=== PATIENT | male | born 1950 | race Caucasian/White ===

== ENCOUNTER 2018-02-27 11:25 | Outpatient (RCR) | payer MEDICARE, OTHER, SELFPAY | END 2018-03-11 13:01 | disposition other institution (70) | LOC: CR 03-01 11:27 | PROVIDERS: Visit Provider Family Medicine | DX: I25.2 Old myocardial infarction (principal); E78.5 Hyperlipidemia, unspecified; Z51.89 Encounter for other specified aftercare | CPT/HCPCS: S9472 ==

== ENCOUNTER → 2018-03-26 14:30 | Outpatient (CLI) | payer MEDICARE, OTHER, SELFPAY | PROVIDERS: Visit Provider Urology | DX: N39.41 Urge incontinence (principal); N32.0 Bladder-neck obstruction | CPT/HCPCS: 99213 ==

== ENCOUNTER 2018-03-27 11:09 | Outpatient (RCR) | payer SELFPAY ==
--- NOTE | 2018-03-11 11:00 | PR3E_ITS ---
67 year old male who completed Cardiac Rehabilitation Phase 2 on March 08 2018 s/p NSTEMI in October 2017. Patient decided to continue exercising regularly and join the Cardiac Rehab Maintenance Phase, 3 days per week. PMH:Dyslipidemia, GERD, Depression, ELIAS, DJD of cervical spine, essential tremor , chronic fatigue Cardiac Risk Factors: +Male, +Age, +Family history, +HCL, +Depression, +remote smoking history Medications: Ability, Armodafinil, ASA, Atorvastatin, Clomipramine, Concerta, Gabapentin, Metoprolol Succinate, Mirabegron, Nitroglycerin, Omeprazole, Plavix , Propranolol, Trospium Chloride First day of Phase 3: 03/11/18 Oriented to program structure and patient responsibilities.Weight 254.6 lbs Resting HR 93 bpm and resting BP 136/82. Utilized the treadmill, NuStep, Stationary bike, and UBE for 10 minutes each. HR w/ exercise 100-104 bpm, JAYLEN RPE scores 10-12. Continued free weight regimen from Phase 2 with 6lb upper body weights and 4lb lower body weights. Will continue to progress as tolerated.
== END 2018-03-29 23:59 | disposition home or self-care (01) ==
LOC: CR 11:09
PROVIDERS: Visit Provider Family Medicine
DX: I25.2 Old myocardial infarction (principal); E78.5 Hyperlipidemia, unspecified; Z51.89 Encounter for other specified aftercare
CPT/HCPCS: S9472

== ENCOUNTER 2018-04-26 13:17 | Outpatient (RCR) | payer SELFPAY | END 2018-04-28 23:59 | disposition home or self-care (01) | LOC: CR 13:17 | PROVIDERS: Visit Provider Family Medicine | DX: I25.2 Old myocardial infarction (principal); E78.5 Hyperlipidemia, unspecified; Z51.89 Encounter for other specified aftercare | CPT/HCPCS: S9472 ==

== ENCOUNTER 2018-05-29 02:01 | Outpatient (CLI) | payer MEDICARE, OTHER, SELFPAY ==
[2018-05-29 13:13] LABS: ALT 35 U/L (12-78); AST 20 U/L (15-37); Albumin 3.8 g/dL (3.4-5.0); Alkaline Phosphatase 124 U/L (46-116); Anion Gap 10.4 mmol/L (3-11); BUN 13 mg/dL (7-18); Bilirubin, Total 0.5 mg/dL (0.2-1.0); CO2 27.6 mmol/L (21.0-32.0); Chloride 102 mmol/L (98-107); Glucose 90 mg/dL (70-100); Potassium 4.3 mmol/L (3.5-5.1); Sodium 140 mmol/L (136-145); Total Protein 6.8 g/dL (6.4-8.2)
== END 2018-05-29 02:21 ==
DX: F32.9 Major depressive disorder, single episode, unspecified (principal); K21.9 Gastro-esophageal reflux disease without esophagitis; R53.82 Chronic fatigue, unspecified; R25.1 Tremor, unspecified; R63.8 Other symptoms and signs concerning food and fluid intake
CPT/HCPCS: 36415; 80053

== ENCOUNTER 2018-05-29 11:00 | Outpatient (RCR) | payer SELFPAY | END 2018-05-29 23:59 | disposition home or self-care (01) | LOC: CR 11:00 | PROVIDERS: Visit Provider Family Medicine | DX: I25.2 Old myocardial infarction (principal); E78.5 Hyperlipidemia, unspecified; Z51.89 Encounter for other specified aftercare | CPT/HCPCS: S9472 ==

== ENCOUNTER 2018-06-28 13:24 | Outpatient (RCR) | payer SELFPAY | END 2018-06-28 23:59 | disposition home or self-care (01) | LOC: CR 13:24 | PROVIDERS: Visit Provider Family Medicine | DX: I25.2 Old myocardial infarction (principal); E87.5 Hyperkalemia; Z51.89 Encounter for other specified aftercare | CPT/HCPCS: S9472 ==

== ENCOUNTER 2018-07-05 11:00 | Outpatient (RCR) | payer SELFPAY | END 2018-07-29 23:59 | LOC: CR 11:00 | PROVIDERS: Visit Provider Family Medicine | DX: I25.2 Old myocardial infarction (principal); E87.1 Hypo-osmolality and hyponatremia; Z51.89 Encounter for other specified aftercare | CPT/HCPCS: S9472 ==

== ENCOUNTER 2018-08-28 11:00 | Outpatient (RCR) | payer SELFPAY | END 2018-08-29 23:59 | disposition home or self-care (01) | LOC: CR 11:00 | PROVIDERS: Visit Provider Family Medicine | DX: I25.2 Old myocardial infarction (principal); E87.1 Hypo-osmolality and hyponatremia; Z51.89 Encounter for other specified aftercare ==

== ENCOUNTER → 2018-09-17 09:46 | Outpatient (BNVA) | payer MEDICARE, OTHER, SELFPAY | PROVIDERS: Visit Provider Orthopaedic Surgery | DX: M17.12 Unilateral primary osteoarthritis, left knee (principal); Z96.652 Presence of left artificial knee joint | CPT/HCPCS: 99213 ==

== ENCOUNTER 2018-09-23 11:00 | Outpatient (RCR) | payer SELFPAY | END 2018-09-26 23:59 | disposition home or self-care (01) | LOC: CR 11:00 | PROVIDERS: Visit Provider Family Medicine | DX: I25.2 Old myocardial infarction (principal); E87.1 Hypo-osmolality and hyponatremia; Z51.89 Encounter for other specified aftercare | CPT/HCPCS: S9472 ==

== ENCOUNTER 2018-10-25 12:46 | Outpatient (RCR) | payer SELFPAY | END 2018-10-27 23:59 | disposition home or self-care (01) | LOC: CR 12:46 | PROVIDERS: Visit Provider Family Medicine | DX: I25.2 Old myocardial infarction (principal); E87.1 Hypo-osmolality and hyponatremia; Z51.89 Encounter for other specified aftercare | CPT/HCPCS: S9472 ==

== ENCOUNTER 2018-11-15 01:19 | Outpatient (CLI) | payer MEDICARE, OTHER, SELFPAY ==
[2018-11-15 09:18] LABS: ALT 35 U/L (12-78); AST 17 U/L (15-37); Albumin 3.7 g/dL (3.4-5.0); Alkaline Phosphatase 124 U/L (46-116); Anion Gap 8.1 mmol/L (3-11); BUN 19 mg/dL (7-18); Bilirubin, Total 0.5 mg/dL (0.2-1.0); CO2 28.9 mmol/L (21.0-32.0); CREATININE 1.02 mg/dL (0.70-1.30); Chloride 105 mmol/L (98-107); Glucose 112 mg/dL (70-100); Potassium 4.1 mmol/L (3.5-5.1); Sodium 142 mmol/L (136-145); Total Protein 6.9 g/dL (6.4-8.2)
== END 2018-11-15 01:39 ==
DX: R97.20 Elevated prostate specific antigen [PSA] (principal); N39.41 Urge incontinence; R63.8 Other symptoms and signs concerning food and fluid intake; K21.9 Gastro-esophageal reflux disease without esophagitis; F32.9 Major depressive disorder, single episode, unspecified; M50.30 Other cervical disc degeneration, unspecified cervical region
CPT/HCPCS: 36415; 80053; 84154

== ENCOUNTER 2018-11-25 11:52 | Outpatient (RCR) | payer SELFPAY | END 2018-11-26 23:59 | disposition home or self-care (01) | LOC: CR 11:52 | PROVIDERS: Visit Provider Family Medicine | DX: I25.2 Old myocardial infarction (principal); E87.1 Hypo-osmolality and hyponatremia; Z51.89 Encounter for other specified aftercare | CPT/HCPCS: S9472 ==

== ENCOUNTER → 2018-11-27 12:38 | Outpatient (BNVA) | payer MEDICARE, OTHER, SELFPAY | PROVIDERS: Visit Provider Student in an Organized Health Care Education/Training Program | DX: I21.29 ST elevation (STEMI) myocardial infarction involving other sites (principal); R53.83 Other fatigue | CPT/HCPCS: 99214 ==

== ENCOUNTER 2018-11-27 13:20 | Outpatient (CLI) | payer MEDICARE, OTHER, SELFPAY | END 2018-11-27 13:40 | PROVIDERS: Visit Provider Student in an Organized Health Care Education/Training Program | DX: I25.2 Old myocardial infarction (principal); R53.83 Other fatigue; G47.33 Obstructive sleep apnea (adult) (pediatric); I21.29 ST elevation (STEMI) myocardial infarction involving other sites | CPT/HCPCS: 99214; 93005; 93010 ==

== ENCOUNTER 2018-12-02 01:50 | Outpatient (CLI) | payer MEDICARE, OTHER, SELFPAY ==
[2018-12-02 07:46] LABS: Abs Immature Grans 0.03 k/cumm (0.0-0.09); Absolute Basophil Count 0.03 k/cumm (0.0-0.2); Absolute Eosinophil Count 0.23 k/cumm (0.0-0.7); Absolute Lymphocyte Count 1.13 k/cumm (1.2-3.4); Absolute Monocyte Count 0.59 k/cumm (0.11-0.7); Absolute Neutrophil Count 2.93 k/cumm (1.2-6.7); Basophils % 0.6; Eosinophils % 4.7; HCT 43.9 % (40.0-50.0); HGB 14.5 g/dL (13.5-17.5); Immature Grans % 0.6; Lymphocytes % 22.9; Mean Corpuscular Hemoglobin 29.5 pg (27.0-33.0); Mean Corpuscular Volume 89.4 fL (80-95); Mean Platelet Volume 10.1 fL (8.0-11.0); Monocytes % 11.9; Neutrophils % 59.3; Platelet Count 138 x1000/uL (130-400); RBC 4.91 m/cumm (4.50-6.00); RBC Distribution Width 13.8 % (11.8-14.1); White Blood Cell Count 4.94 k/cumm (4.4-10.8)
[2018-12-02 08:48] LABS: Cholesterol 152 mg/dL (50-200); HDL Cholesterol 44 mg/dL (40-60); LDL CHOLESTEROL 85 mg/dL (<100); TSH (W/Ref FT4) 0.65 uIU/mL (0.358-3.74); Triglyceride 97 mg/dL (30-150)
[2018-12-02 09:02] LABS: Vitamin D 25 Total 37.4 ng/ml (30-100)
== END 2018-12-02 02:10 ==
PROVIDERS: Visit Provider Student in an Organized Health Care Education/Training Program
DX: I21.3 ST elevation (STEMI) myocardial infarction of unspecified site (principal); I25.2 Old myocardial infarction; Z79.899 Other long term (current) drug therapy
CPT/HCPCS: 36415; 80061; 82306; 83721; 84443; 85025

== ENCOUNTER 2018-12-25 07:00 | Outpatient (RCR) | payer SELFPAY | END 2018-12-27 23:59 | disposition home or self-care (01) | LOC: CR 07:00 | PROVIDERS: Visit Provider Family Medicine | DX: I25.2 Old myocardial infarction (principal); E87.1 Hypo-osmolality and hyponatremia; Z51.89 Encounter for other specified aftercare | CPT/HCPCS: S9472 ==

== ENCOUNTER 2019-01-24 11:30 | Outpatient (RCR) | payer SELFPAY | END 2019-01-26 23:59 | disposition home or self-care (01) | LOC: CR 11:30 | PROVIDERS: Visit Provider Family Medicine | DX: I25.2 Old myocardial infarction (principal); E87.1 Hypo-osmolality and hyponatremia; Z51.89 Encounter for other specified aftercare | CPT/HCPCS: S9472 ==

== ENCOUNTER 2019-02-24 13:27 | Outpatient (RCR) | payer SELFPAY | END 2019-02-26 23:59 | disposition home or self-care (01) | LOC: CR 13:27 | PROVIDERS: Visit Provider Family Medicine | DX: I25.2 Old myocardial infarction (principal); E87.1 Hypo-osmolality and hyponatremia; Z51.89 Encounter for other specified aftercare | CPT/HCPCS: S9472 ==

== ENCOUNTER 2019-03-24 11:00 | Outpatient (RCR) | payer SELFPAY | END 2019-03-29 23:59 | disposition home or self-care (01) | LOC: CR 11:00 | PROVIDERS: Visit Provider Family Medicine | DX: I25.2 Old myocardial infarction (principal); E87.1 Hypo-osmolality and hyponatremia; Z51.89 Encounter for other specified aftercare | CPT/HCPCS: S9472 ==

== ENCOUNTER 2019-04-28 11:00 | Outpatient (RCR) | payer SELFPAY | END 2019-04-28 23:59 | disposition home or self-care (01) | LOC: CR 11:00 | PROVIDERS: Visit Provider Family Medicine | DX: I25.2 Old myocardial infarction (principal); E87.1 Hypo-osmolality and hyponatremia; Z51.89 Encounter for other specified aftercare | CPT/HCPCS: S9472 ==

== ENCOUNTER 2019-05-28 11:45 | Outpatient (RCR) | payer SELFPAY | END 2019-05-29 23:59 | disposition home or self-care (01) | LOC: CR 11:45 | PROVIDERS: Visit Provider Family Medicine | DX: I25.2 Old myocardial infarction (principal); E87.1 Hypo-osmolality and hyponatremia; Z51.89 Encounter for other specified aftercare | CPT/HCPCS: S9472 ==

== ENCOUNTER 2019-06-23 11:48 | Outpatient (RCR) | payer SELFPAY | END 2019-06-28 23:59 | disposition home or self-care (01) | LOC: CR 11:48 | PROVIDERS: Visit Provider Family Medicine | DX: I25.2 Old myocardial infarction (principal); E87.1 Hypo-osmolality and hyponatremia; Z51.89 Encounter for other specified aftercare | CPT/HCPCS: S9472 ==

== ENCOUNTER → 2019-07-25 13:19 | Outpatient (BNVA) | payer MEDICARE, OTHER, SELFPAY | PROVIDERS: Visit Provider Physical Therapy Assistant | DX: Z12.11 Encounter for screening for malignant neoplasm of colon (principal); Z86.010 Personal history of colon polyps ==

== ENCOUNTER 2019-08-15 11:18 | Outpatient (CLI) | payer MEDICARE, OTHER, SELFPAY ==
--- NOTE | 2019-08-15 11:15 | DI.RAD_ITS ---
EXAM: XR PARANASAL SINUS INDICATION: Pain over max and frontal sinuses, facial pain, headache, R51. COMPARISON: No exams were available for comparison TECHNIQUE: 2D digital imaging was performed. FINDINGS: The sinuses appear clear as visualized. No fracture is visible. The posterior upper molar teeth pro ject superiorly into the floors of the maxillary sinuses. IMPRESSION: No evidence of sinus disease.
== END 2019-08-15 11:38 ==
PROVIDERS: Visit Provider Family Medicine
DX: R51 Headache (principal); G50.1 Atypical facial pain
CPT/HCPCS: 70220

== ENCOUNTER 2019-08-29 11:00 | Outpatient (RCR) | payer SELFPAY | END 2019-08-29 23:59 | disposition home or self-care (01) | LOC: CR 11:00 | PROVIDERS: Visit Provider Family Medicine | DX: I25.2 Old myocardial infarction (principal); E87.1 Hypo-osmolality and hyponatremia; Z51.89 Encounter for other specified aftercare | CPT/HCPCS: S9472 ==

== ENCOUNTER 2019-09-16 02:08 | Outpatient (CLI) | payer MEDICARE, OTHER, SELFPAY ==
--- NOTE | 2019-09-16 11:30 | DI.CT_ITS ---
EXAM: CT SINUS WO CLINICAL HISTORY: POST NASAL DRIP/FACIAL PAIN,HEADACHE,CHRONIC RHINITIS, DURAND, R51, R09.82, J31.0 COMPARISON: No exams were available for comparison FINDINGS: There is mild mucosal thickening in the right frontal sinus. The left frontal sinus is clear. The ethmoid air cells are clear. There is a small mucous retention cyst or polyp in the right sphenoid sinus. The sphenoid sinuses ar e otherwise clear. There is mild mucosal thickening seen in the left maxillary sinus. The right maxillary sinus is unre markable. The mastoid air cells are well aerated. No fluid levels are seen in the sinuses. The nasal septum is predominantly midline. The ostiomeatal complexes are unremarkable as are the tur binates. The bones are intact. The orbits and retro-orbital soft tissues are unremarkable. IMPRESSION: Minimal sinus disease as described above. No fluid levels to suggest acute sinusitis.
== END 2019-09-16 02:28 ==
PROVIDERS: Visit Provider Physician Assistant
DX: R09.82 Postnasal drip (principal); J31.0 Chronic rhinitis; R51 Headache; J32.9 Chronic sinusitis, unspecified
CPT/HCPCS: 70486

== ENCOUNTER 2019-09-26 13:34 | Outpatient (RCR) | payer SELFPAY | END 2019-09-27 23:59 | disposition home or self-care (01) | LOC: CR 13:34 | PROVIDERS: Visit Provider Family Medicine | DX: I25.2 Old myocardial infarction (principal); E87.1 Hypo-osmolality and hyponatremia; Z51.89 Encounter for other specified aftercare | CPT/HCPCS: S9472 ==

== ENCOUNTER 2019-10-06 11:00 | Outpatient (RCR) | payer SELFPAY | END 2019-10-28 23:59 | disposition home or self-care (01) | LOC: CR 11:00 | PROVIDERS: Visit Provider Family Medicine | DX: I25.2 Old myocardial infarction (principal); E87.1 Hypo-osmolality and hyponatremia; Z51.89 Encounter for other specified aftercare | CPT/HCPCS: S9472 ==

== ENCOUNTER → 2019-10-28 08:41 | Outpatient (BNVA) | payer MEDICARE, OTHER, SELFPAY | PROVIDERS: Referring Provider Otolaryngology Otolaryngology/Facial Plastic Surgery; Visit Provider Nurse Practitioner Adult Health | DX: R51 Headache (principal) | CPT/HCPCS: 99443 ==

== ENCOUNTER → 2019-11-27 11:47 | Outpatient (BNVA) | payer MEDICARE, OTHER, SELFPAY | PROVIDERS: Visit Provider Internal Medicine Cardiovascular Disease | DX: I21.11 ST elevation (STEMI) myocardial infarction involving right coronary artery (principal); G47.30 Sleep apnea, unspecified; R51 Headache; G89.29 Other chronic pain | CPT/HCPCS: 99204; 99443 ==

== ENCOUNTER → 2019-12-09 13:06 | Outpatient (BNVA) | payer MEDICARE, OTHER, SELFPAY | PROVIDERS: Visit Provider Nurse Practitioner Adult Health | DX: R51 Headache (principal) | CPT/HCPCS: 99214 ==

== ENCOUNTER 2019-12-12 03:45 | Outpatient (CLI) | payer MEDICARE, OTHER, SELFPAY ==
--- NOTE | 2019-12-12 06:45 | DI.MRI_ITS ---
EXAM: MR BRAIN WO CLINICAL HISTORY: new daily headaches,R51. TECHNIQUE: Multiplanar multisequence MRI was performed. COMPARISON: No exams were available for comparison FINDINGS: MR examination of the brain was performed according to the usual protocol. There is moderate general ized cerebral atrophy. There are small right-sided lacunar infarcts. There are multiple focal areas of abnormal signal in periventricular and subcortical white matter, sparing the corpus callosum, con sistent with microvascular ischemic changes. No other significant signal abnormality identified. Susceptibility weighted imaging shows no evidence of intracranial hemorrhage. Diffusion-weighted imaging shows no evidence infarction. The orbital and temporal bone structures appear intact, as does the pituitary. There is normal flow void in the dkmojk-ge-Zgyqez vasculature. IMPRESSION: Mild atrophy and diffuse microvascular ischemic changes, old right lacunar infarcts noted. No other significant abnormality. DATA REPOSITORY:
== END 2019-12-12 04:05 ==
PROVIDERS: Visit Provider Nurse Practitioner Adult Health
DX: R51 Headache (principal); G31.89 Other specified degenerative diseases of nervous system; I67.82 Cerebral ischemia
CPT/HCPCS: 70551

== ENCOUNTER → 2020-01-08 13:43 | Outpatient (BNVA) | payer MEDICARE, OTHER, SELFPAY | PROVIDERS: Visit Provider Nurse Practitioner Adult Health | DX: R51 Headache (principal) | CPT/HCPCS: 99213 ==

== ENCOUNTER 2020-04-06 04:38 | Outpatient (CLI) | payer MEDICARE, OTHER, SELFPAY ==
[2020-04-08 07:06] LABS: Vitamin D 25 Total 53.9 ng/ml (30-100)
== END 2020-04-06 04:58 ==
DX: E55.9 Vitamin D deficiency, unspecified (principal)
CPT/HCPCS: 36415; 82306

== ENCOUNTER 2020-06-02 03:18 | Outpatient (CLI) | payer MEDICARE, OTHER, SELFPAY ==
[2020-06-02 11:32] LABS: ALT 40 U/L (16-63); AST 19 U/L (15-37); Albumin 3.9 g/dL (3.4-5.0); Alkaline Phosphatase 122 U/L (46-116); BUN 16 mg/dL (7-18); Bilirubin, Total 0.5 mg/dL (0.2-1.0); CO2 31.2 mmol/L (21.0-32.0); CREATININE 1.01 mg/dL (0.70-1.30); Calcium 9.1 mg/dL (8.5-10.1); Glucose 101 mg/dL (74-106); Total Protein 6.9 g/dL (6.4-8.2)
[2020-06-02 11:50] LABS: Anion Gap 4.8 mmol/L (3-11); Chloride 104 mmol/L (98-107); Potassium 5.3 mmol/L (3.5-5.1); Sodium 140 mmol/L (136-145)
== END 2020-06-02 03:38 ==
DX: K21.9 Gastro-esophageal reflux disease without esophagitis (principal); M19.90 Unspecified osteoarthritis, unspecified site; F41.8 Other specified anxiety disorders; R51.9 Headache, unspecified; R53.82 Chronic fatigue, unspecified
CPT/HCPCS: 36415; 80053

== ENCOUNTER 2020-08-17 09:07 | Outpatient (CLI) | payer MEDICARE, OTHER, SELFPAY ==
[2020-08-18 19:11] LABS: COVID-19 RT-PCR UVMMC Result Negative (Negative)
== END 2020-08-17 09:27 ==
DX: J02.9 Acute pharyngitis, unspecified (principal)
CPT/HCPCS: U0003; 87070

== ENCOUNTER 2020-09-17 02:51 | Outpatient (CLI) | payer MEDICARE, OTHER, SELFPAY ==
[2020-09-17 08:44] LABS: HCT 42.6 % (40.0-50.0); HGB 14.1 g/dL (13.5-17.5)
[2020-09-17 09:27] LABS: Iron 75 ug/dL (65-175); Total Iron Binding Capacity 288 ug/dL (250-450); Transferrin Sat 26 % (20-55)
[2020-09-17 09:28] LABS: ALT 29 U/L (16-63); AST 14 U/L (15-37); Albumin 3.6 g/dL (3.4-5.0); Alkaline Phosphatase 111 U/L (46-116); Anion Gap 11.1 mmol/L (3-11); BUN 17 mg/dL (7-18); Bilirubin, Total 0.3 mg/dL (0.2-1.0); CO2 25.9 mmol/L (21.0-32.0); Calcium 8.8 mg/dL (8.5-10.1); Chloride 107 mmol/L (98-107); Glucose 116 mg/dL (74-106); Potassium 4.1 mmol/L (3.5-5.1); Sodium 144 mmol/L (136-145); Total Protein 6.7 g/dL (6.4-8.2)
[2020-09-17 17:13] LABS: FSH 22.9 mIU/mL (1.4-18.1); LH 14.8 mIU/mL (1.5-9.3)
[2020-09-17 17:18] LABS: Prolactin 15.9 ng/mL (2.1-17.7); Sex Hormone Binding Globulin 31.3 nmol/L (21.6-113.1)
[2020-09-20 13:17] LABS: PSA, Ultrasensitive 7.3 ng/mL (<= 4.5)
[2020-09-22 10:10] LABS: Testosterone, Free 9.05 ng/dL (3.47-13.0); Testosterone, Total 335 ng/dL (240-950)
== END 2020-09-17 02:52 | disposition home or self-care (01) ==
LOC: LBO 02:51
PROVIDERS: Visit Provider Internal Medicine
DX: Z00.00 Encounter for general adult medical examination without abnormal findings (principal); E29.1 Testicular hypofunction; R94.8 Abnormal results of function studies of other organs and systems
CPT/HCPCS: 36415; 80053; 84153; 84402; 84403; 83001; 83002; 83540; 83550; 84146; 84270; 85014; 85018

== ENCOUNTER → 2020-12-06 08:56 | Outpatient (BNVA) | payer MEDICARE, OTHER, SELFPAY | PROVIDERS: Visit Provider Internal Medicine Cardiovascular Disease | DX: I25.2 Old myocardial infarction (principal); R63.8 Other symptoms and signs concerning food and fluid intake; I25.10 Atherosclerotic heart disease of native coronary artery without angina pectoris | CPT/HCPCS: 99214; 99213 ==

== ENCOUNTER 2021-01-20 13:00 | Outpatient (RCR) | payer SELFPAY ==
--- OUTSIDE RECORDS SUMMARY | 2020-12-28 11:29 | XMS_ITS ---
:1950 Author Care Team Providers Name Role Phone SLADE QASIM Primary Care Provider [phone] [facility] MEDICAL RECORDS Primary Care Provider [phone] DALILA RIVERA MD Mobile Sales Consultant [phone] [facility] OTHER [phone] Allergies Code Code System Name Reaction Severity Status Onset Penicillins ? ? Active ? Medications Name Status Start Date Stop Date ? ? Abilify Active ? Not available 20mg daily aspirin Active ? Not available 81mg daily atorvastatin Active ? Not available 40mg daily clomipramine Active ? Not available 50mg daily Concerta Active ? Not available 36mg daily metoprolol succinate Active ? Not availab le 25mg dailiy Myrbetriq Active ? Not available 50mg daily naproxen Active ? Not available 220mg PRN Neurontin Active ? Not available 800mg TID nitroglycerin Active ? Not available 0.4mg PRN omeprazole Completed ? 03/07/2018 40mg daily pantoprazole Active ? Not available 40mg daily Silenor 6 mg tablet Completed ? 10/06/2019 Take 1 tablet every day by oral route for 30 days. Surmontil 100 mg capsule Completed 08/06/2017 018 1 Capsule: two times daily trospium Active ? Not available 20mg BID Problems Name Status Onset Date Source ? Gastroesophageal Reflux Disease Active 02/25/2018 ? Insomnia Active 04/15/2018 ? Depressive Disorder Active ? History Idiopathic Hypersomnia Associated with Active ? History Long Sleep Time Obstructive Sleep Apnea Syndrome Active ? History Myocardial Infarction Active ? ? Bladder Muscle Dysfunction - Overactive Active ? History Finding of Esophagus Active ? History Procedures Date Name Performed by ? 07/30/2007 Knee Surgery Information not avai lable Notes: Right 03/07/2018 Polysomnogram [facility] [address] [place] [address] (Work Place) Results Lab Results None recorded. Past Encounters 06/01/2020 Obstructive Sleep Apnea Syndrome; Idiopa thic Hypersomnia Associated with Long Sleep Time [facility] [address] [facility]ANT[facility]: [address] [place] [phone], Ph. 10/06/2019 Obstructive Sleep Apnea Syndrome; Idiopa thic Hypersomnia Associated with Long Sleep Time; Insomnia [address] [facility]ANT[facility]: [address] [place] [phone], Ph. Social History Tobacco Smoking Status Never Smoker Vaccine List Vaccine Type influenza, seasonal, injectable 07/30/2007 04/29/2017 pneumococcal polysaccharide PPV23 07/30/2002 Td (adult), adsorbed 07/30/2002 Plan of Care Reminders Provider Appointments None ? ? recorded. Lab None ? ? recorded. Referral None ? ? recorded. Procedures None ? ? recorded. Surgeries None ? ? recorded. Imaging None ? ? recorded. Vitals 06/01/2020 12:30PM Office 30 Height Weight BMI Blood Pressure 177.8 cm 112.04 kg 35.4 kg/m2 120/60 mm[Hg] 10/06/2019 09:45AM Office 30 Height Weight BMI Blood Pressure 177.8 cm 115.71 kg 36.6 kg/m2 120/58 mm[Hg] 05/28/2018 12:30PM Office 30 Height Weight BMI Blood Pressure 175.9 cm 116.71 kg 37.7 kg/m2 130/80 mm[Hg] 04/15/2018 03:00PM Office 30 Height Weight BMI Blood Pressure 175.9 cm 116.53 kg 37.7 kg/m2 130/78 mm[Hg] 03/07/2018 03:00PM Office 30 Height Weight BMI Blood Pressure 175.9 cm 113.85 kg 36.8 kg/m2 110/68 mm[Hg] 09/17/2017 Height Weight Blood Pressure 175.26 cm 113.4 kg 134/88 mm[Hg] 08/07/2017 Height Weight Blood Pressure 175.26 cm 112.49 kg 150/78 mm[Hg]
[2020-12-28 13:00] VITALS: BP 127/75; PULSE 82
[2020-12-30 13:00] VITALS: BP 126/77; PULSE 80; O2SAT 95
[2021-01-06 12:59] VITALS: BP 128/77; PULSE 85
[2021-01-11 13:02] VITALS: BP 128/79; PULSE 80
[2021-01-13 13:00] VITALS: BP 121/75; PULSE 81
[2021-01-18 12:54] VITALS: BP 143/80; PULSE 80
[2021-01-20 13:04] VITALS: BP 125/70; PULSE 77
== END 2021-01-26 23:59 | disposition home or self-care (01) ==
LOC: CR 13:00
PROVIDERS: Visit Provider Family Medicine
DX: Z51.89 Encounter for other specified aftercare (principal)

== ENCOUNTER 2021-02-19 11:57 | Emergency (ER) | payer MEDICARE, OTHER, SELFPAY ==
[2021-02-19 12:09] VITALS: BP 138/64; PULSE 112; RESP 20; TEMP 37.5; O2SAT 96
--- NOTE | 2021-02-19 12:27 | W.ED.GENAD ---
Discharge Plan Disposition Patient Disposition: HOME Condition: Improving Discharge Details Clinical Impression: Acute UTI Primary Care Provider: Dahlia Wylie ED Provider: Declan Grant Home Meds and New Rx's Prescriptions: New cephalexin 500 mg capsule 500 mg PO TID 7 Days Qty: 21 RF: 0 Continued clomipramine 50 mg capsule 50 mg PO HS RF: 0 diclofenac sodium [Voltaren] 1 % gel 2 g topical QID PRN (Reason: neck strain) Qty: 50 RF: 1 triamcinolone acetonide [Nasacort] 55 mcg aerosol,spray 2 spray intranasal DAILY Qty: 16.9 RF: 3 methylphenidate HCl [Concerta] 54 mg tablet extended release 24hr 54 mg PO QAM RF: 0 Latuda 20 mg tablet 40 mg PO QPM RF: 0 hydroxyzine pamoate 25 mg capsule 25 - 50 mg PO BID PRNRF: 0 nitroglycerin 0.4 mg tablet, sublingual 0.4 mg SL Q5M PRN (Reason: chest pain) Qty: 30 RF: 2 gabapentin [Neurontin] 800 MG tablet 400 mg PO BID Qty: 270 RF: 4 Myrbetriq 50 MG tablet extended release 24 hr 50 mg PO DAILY Qty: 90 RF: 4 ibuprofen 400 mg tablet 400 mg PO TID RF: 0 acetaminophen 500 mg tablet 500 mg PO Q6H PRNRF: 0 pantoprazole 40 mg tablet,delayed release (DR/EC) 40 mg PO DAILY Qty: 30 RF: 11 atorvastatin 40 mg tablet 40 mg PO DAILY Qty: 90 RF: 3 bisoprolol fumarate 5 mg tablet 5 mg PO DAILY Qty: 90 RF: 6 tolterodine [Detrol LA] 4 mg capsule,extended release 24hr 4 mg PO DAILY Qty: 90 RF: 3 aspirin 81 mg tablet,delayed release (DR/EC) 81 mg PO DAILY Qty: 30 RF: 12 magnesium oxide 500 mg capsule 500 mg PO DAILY Qty: 30 RF: 12 riboflavin (vitamin B2) 100 mg tablet 100 mg PO BID Qty: 60 RF: 12 cholecalciferol (vitamin D3) 50 mcg (2,000 unit) capsule 100 mcg PO DAILY Qty: 60 RF: 12 calcium carbonate 500 mg calcium (1,250 mg) Tablet,Chewable 2 mg PO PRN PRNRF: 0 Discharge Instructions Instructions: Urinary Tract Infection in Men (ED) Additional Instructions: Your work-up today revealed a urinary tract infection. Please take antibiotics as prescribed, next dose tomorrow morning. Follow-up with your urologist at [facility] for recheck. Please call for an appointment. Return to the emergency department for recurrent fever, recurrent abdominal pain, the development of vomiting, or any other acute concerns. Medical Decision Making 70-year-old male presents from home complaining of periumbilical abdominal pain that began at 9:30 AM and seems to be adding by the time of arrival. It was associated with mild malaise, no vomiting or fever but he did feel chilled. Patient self catheterizes for urine production and is followed by urology at [facility]. Patient arrives with a temp of 37.5, pulse approximately 110 at triage, with mild diffuse abdominal tenderness on exam. Given his report of self-catheterization, concern for urinary tract infection. Differential diagnosis would also include other sources of peritonitis, but his exam of the abdomen is fairly benign. Screening laboratories obtained with urinalysis, patient given fluids, he spiked a fever to 38.2 and was given acetaminophen. Patient's laboratories reveal a CBC with a white count of 5, hematocrit 39, platelets aggregated. CHEM is reassuring with BUN 17, creatinine 1.0. Urinalysis with positive nitrites, positive leukocyte esterase, 20-50 white blood cells and moderate bacteria with only few epithelial cells. Consistent with cystitis/urinary tract infection. Patient given ceftriaxone. Following fluids, acetaminophen and antibiotics patient is feeling improved, pulse is improving. Consistent with urinary tract infection which we will treat with oral cephalosporin. He will follow-up with urology at [facility] for recheck. HPI General Mode of arrival: ambulatory. Date/Time Provider Initiated Documentation: 02/19/21 12:03. Limitations to Documentation: no limitations. Information obtained by: patient and family. History of Present Illness 70 year old M presents to the emergency department with the chief complaint of Abdominal pain that began at 9:30 AM, periumbilical, described as mild, Quality is described as dull and constant, and is localized to the abdomen. Patient reports no radiation. Patient started experiencing this hour(s) and it has been constant. No relieving factors improve symptom(s), No exacerbating factors reported . Patient notes denies fever/chills and nausea/vomiting. Patient did receive the following treatments prior to arrival, none Related Data Home Medications Medication Instructions Recorded Confirmed gabapentin [Neurontin] 400 mg PO BID #270 tab-cap 01/28/13 02/19/21 Myrbetriq 50 mg PO DAILY #90 tab-cap 09/14/17 02/19/21 methylphenidate HCl 54 mg 54 mg PO QAM 06/10/19 02/19/21 tablet,extended release 24 hr acetaminophen 500 mg tablet 500 mg PO Q6H PRN 10/02/19 02/19/21 ibuprofen 400 mg tablet 400 mg PO TID 10/02/19 02/19/21 lurasidone 20 mg tablet 40 mg PO QPM tab 11/27/19 02/19/21 pantoprazole 40 mg tablet,delayed 40 mg PO DAILY #30 tab-cap 03/24/20 02/19/21 release clomipramine 50 mg capsule 50 mg PO HS cap 04/13/20 02/19/21 atorvastatin 40 mg tablet 40 mg PO DAILY #90 tab-cap 09/17/20 02/19/21 hydroxyzine pamoate 25 mg capsule 25 - 50 mg PO BID PRN cap 10/21/20 02/19/21 nitroglycerin 0.4 mg sublingual 0.4 mg SL Q5M PRN #30 tab 10/21/20 02/19/21 tablet diclofenac sodium 1 % topical gel 2 g TOPICAL QID PRN #50 g 11/02/20 02/19/21 triamcinolone acetonide 55 mcg 2 spray INTRANASAL DAILY #16.9 ml 01/06/21 02/19/21 nasal spray aerosol bisoprolol fumarate 5 mg tablet 5 mg PO DAILY #90 tab 01/10/21 02/19/21 tolterodine 4 mg capsule,extended 4 mg PO DAILY #90 cap 01/10/21 02/19/21 release 24 hr aspirin 81 mg tablet,delayed 81 mg PO DAILY #30 tab-cap 01/28/21 02/19/21 release magnesium oxide 500 mg capsule 500 mg PO DAILY #30 cap 01/28/21 02/19/21 riboflavin (vitamin B2) 100 mg 100 mg PO BID #60 tab 01/28/21 02/19/21 tablet cholecalciferol (vitamin D3) 50 100 mcg PO DAILY #60 cap 02/15/21 02/19/21 mcg (2,000 unit) capsule calcium carbonate 2 mg PO PRN PRN 02/19/21 02/19/21 cephalexin 500 mg PO TID 7 Days #21 cap 02/19/21 Previous Rx's Medication Instructions Recorded Myrbetriq 50 mg PO DAILY #90 tab-cap 09/14/17 pantoprazole 40 mg tablet,delayed 40 mg PO DAILY #30 tab-cap 03/24/20 release atorvastatin 40 mg tablet 40 mg PO DAILY #90 tab-cap 09/17/20 nitroglycerin 0.4 mg sublingual 0.4 mg SL Q5M PRN #30 tab 10/21/20 tablet diclofenac sodium 1 % topical gel 2 g TOPICAL QID PRN #50 g 11/02/20 triamcinolone acetonide 55 mcg 2 spray INTRANASAL DAILY #16.9 ml 01/06/21 nasal spray aerosol bisoprolol fumarate 5 mg tablet 5 mg PO DAILY #90 tab 01/10/21 tolterodine 4 mg capsule,extended 4 mg PO DAILY #90 cap 01/10/21 release 24 hr aspirin 81 mg tablet,delayed 81 mg PO DAILY #30 tab-cap 01/28/21 release magnesium oxide 500 mg capsule 500 mg PO DAILY #30 cap 01/28/21 riboflavin (vitamin B2) 100 mg 100 mg PO BID #60 tab 01/28/21 tablet cholecalciferol (vitamin D3) 50 100 mcg PO DAILY #60 cap 02/15/21 mcg (2,000 unit) capsule cephalexin 500 mg PO TID 7 Days #21 cap 02/19/21 Allergies Allergy/AdvReac Type Severity Reaction Status Date / Time Penicillins Allergy Unknown Verified 02/19/21 12:14 metoprolol AdvReac fatigue Verified 02/19/21 12:14 General Stated Complaint: Abd Prob MARTY: 2 Review of Systems Narrative: No recent illness. No fever. [place] chilled at home. Usually self caths for urine. No vomiting. 8 systems reviewed and otherwise negative. [facility] Medical History Anxiety and depression Arthritis (01/26/16) Bladder outlet obstruction (03/26/18) Chronic fatigue (07/29/15) Degeneration of cervical intervertebral disc C5/6 foraminal narrowing Depressive disorder Dry eye syndrome of both eyes Elevated PSA, less than 10 ng/ml (08/13/17) PSA 7.6: negative prostrate biopsy 10/14 at [facility] GERD (gastroesophageal reflux disease) (03/11/15) Increased BMI (body mass index) (08/13/17) Knee pain right arthroscopy-Jer Left-sided low back pain without sciatica (09/27/15) Lung mass (07/26/15) work up in progress 08/01/19 per pt. states that he has no issues with his lungs Osteoarthritis of right knee (09/01/13) Polyp of colon (06/28/07) 06/28/07 tubular adenoma 04/07/13 TUBULAR ADENOMA Right anterior shoulder pain (10/25/16) Rosacea Sleep apnea uses device 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 states he is being followed by Dr. Robertson @ [facility] Tremor Urgency incontinence (01/12/16) PVP [place] 07/09/18, uncomplicated[place] [facility] [place] Plavix restarted. Vitamin D deficiency Surgical History Arthroplasty of knee (~2007) 2007 RIGHT, DR. ESCAMILLA 2014 Colonoscopy - MAC (04/07/13) DR. Scar ALLISON; 2 TUBULAR ADENOMAS Status post total knee replacement using cement (09/01/13) Family History Mother Cancer Father Stroke Alcohol abuse Sister No problems noted. Sister , age 60 Cancer Brother Alcohol abuse Substance abuse Brother No problems noted. Brother Heart disease Maternal Grandfather Stroke Paternal Grandfather Stroke Son No problems noted. Son No problems noted. Other Depression Social History Smoking/Tobacco Use Status: Never Second Hand Exposure: Yes Smoking risk assessment performed?: Yes Alcohol Intake: current Alcohol Intake frequency: holidays/special occasions only Alcohol type: hard liquor Details: one drink a year. Drug use: Never Substance use type: does not use Household members: spouse and other Details: 3 Housing: house Communication Needs: None Do you need help understanding health information?: Often Pets and animals: Yes Pets and animals: cat(s) and dog(s) Sexually active: No Do you think of yourself as: straight/heterosexual Current gender identity: male What is your relationship status?: How often do you talk on the phone with friends or family?: never How often do you get together with friends or relatives?: never How often do you attend yazidi or sikhism services?: 4 or more times per year Do you belong to any clubs or organized social groups?: no Panel score (0-1 are the most socially isolated patients): 2 What type of physical activity do you participate in: walking Duration: 15-30 minutes/day Frequency: 5-6 times per week Seema/Zoroastrian: Oriental Orthodox Special seema needs: No Seatbelt use: always Drive intox 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 Pleasant, well groomed, interactive. HEAD: Normocephalic, atraumatic ENT: Mucous membranes moist, oropharynx unremarkable, External ear exam unremarkable EYES: PERRL, EOMI NECK: Full ROM, no KIKE, no menigismus CHEST/RESP: Nontender, clear to auscultation bilateral, no wheeze/rhonchi/rales CARDIOVASCULAR: RRR, no murmur, rub lizeth. 2+ Rad pulse bilateral ABDOMEN: Soft, mild tenderness in the periumbilical region without rebound or guarding., no mass. +Bowel sounds EXT: Full ROM, no edema, no rash Neuro: Grossly normal neurologic exam, conversant, interactive. Psych: Speech fluent, thoughts congruent, affect normal Course Vital Signs Vital signs: Vital Signs Temperature 37.5 C 02/19/21 12:09 Pulse 112 H 02/19/21 12:09 Respiratory Rate 20 02/19/21 12:09 Blood Pressure 138/64 02/19/21 12:09 Pulse Oximetry 96 02/19/21 12:09 Temperature 37.5 C 02/19/21 12:09 Temperature Source Temporal Artery Scan 02/19/21 12:09 Pulse 112 H 02/19/21 12:09 Respiratory Rate 20 02/19/21 12:09 Blood Pressure 138/64 02/19/21 12:09 Blood Pressure Position Supine 02/19/21 12:09 Pulse Oximetry 96 02/19/21 12:09 Oxygen Delivery Method Room Air 02/19/21 12:09 Oxygen Flow Rate 0 02/19/21 12:09 Pain Level 5 02/19/21 12:09
[2021-02-19 12:52] LABS: Bilirubin Negative (Negative); Blood Small (Negative); Clarity Clear (Clear); Glucose Negative (Negative); Ketones Negative (Negative); Leukocyte Esterase Small (Negative); Nitrite Positive (Negative); Urobilinogen 0.2 EU/dL (Up TO 0.2); pH 7.5 (5-8)
[2021-02-19] MEDS: Normal Saline 1,000 ML 1000 ML IV (12:54)
[2021-02-19 12:55] LABS: Abs Immature Grans 0.02 10^3/uL (0.0-0.06); Absolute Basophil Count 0.02 10^3/uL (0.0-0.2); Absolute Eosinophil Count 0.01 10^3/uL (0.0-0.7); Absolute Lymphocyte Count 0.14 10^3/uL (1.2-3.4); Absolute Monocyte Count 0.03 10^3/uL (0.1-0.8); Absolute Neutrophil Count 5.11 10^3/uL (1.2-6.7); Basophils % 0.4; Eosinophils % 0.2; HCT 39.7 % (40.0-50.0); Immature Grans % 0.4; Lymphocytes % 2.6; MCH 29.2 pg (27.0-33.0); MCHC 32.7 % (32.0-36.0); MCV 89.2 fL (80-95); Monocytes % 0.6; Neutrophils % 95.8; Nucleated RBC 0 %; RBC 4.45 10^6/uL (4.36-5.78); RDW 13.3 % (11.8-14.1); RDW-SD 43.7 fL; WBC 5.33 10^3/uL (4.4-10.8)
[2021-02-19 13:02] LABS: WBC 20-50 HPF (0-5)
[2021-02-19 13:03] LABS: Bacteria Moderate HPF (Negative); C & S Indicated? Yes; Casts Negative LPF (Negative); Crystals Negative HPF (Negative); Epithelial Cells Few HPF (Negative); Mucus Trace (Negative); Other Cells Rare Renal (Negative)
[2021-02-19] MEDS: cefTRIAXone 1 GM/50 ML BAG IVPB (13:04)
[2021-02-19 13:08] LABS: ALT 27 U/L (16-63); AST 21 U/L (15-37); Albumin 3.3 g/dL (3.4-5.0); Alkaline Phosphatase 102 U/L (46-116); Anion Gap 6.9 mmol/L (3-11); BUN 17 mg/dL (7-18); Bilirubin, Total 0.5 mg/dL (0.2-1.0); CO2 29.1 mmol/L (21.0-32.0); Chloride 107 mmol/L (98-107); Glucose 97 mg/dL (74-106); Magnesium 1.8 mg/dL (1.8-2.4); Potassium 3.9 mmol/L (3.5-5.1); Sodium 143 mmol/L (136-145); Total Protein 6.3 g/dL (6.4-8.2)
[2021-02-19 13:14] LABS: Diff Comment Diff Reviewed; RBC Morphology Normal
[2021-02-19 13:43] VITALS: BP 124/70; PULSE 108; RESP 23; TEMP 38.2
[2021-02-19] MEDS: ACETAMINOPHEN 1,000 MG/100 ML BTL 400 MG IVPB (13:52)
[2021-02-19 14:39] VITALS: BP 115/66; PULSE 107; RESP 222; TEMP 37.5
[2021-02-19 14:53] VITALS: BP 109/54; PULSE 106; RESP 16; O2SAT 94
--- NOTE | 2021-02-22 08:54 | ED.FU.B_ITS ---
Patient is noted to be on Keflex for urinary tract infection, however his urine culture was resistant to Ancef which is also a first generation cephalosporin so I will switch him to cefdinir I did contact patient and he is feeling mild improvement at this time He is aware that we sent a prescription for cefdinir to his pharmacy, [facility] in [place]
== END 2021-02-19 15:20 | disposition home or self-care (01) ==
PROVIDERS: Emergency Provider Emergency Medicine
DX: N39.0 Urinary tract infection, site not specified (principal); B96.89 Other specified bacterial agents as the cause of diseases classified elsewhere; Z16.23 Resistance to quinolones and fluoroquinolones
CPT/HCPCS: 36415; 80053; 87077; 96365; 96375; 99284; 81003; 81015; 83735; 85025; 87086; 87186; 99283; J0131; J0696

== ENCOUNTER 2021-03-24 13:00 | Outpatient (RCR) | payer SELFPAY ==
[2021-02-27 00:12] VITALS: BP 127/80; PULSE 80
[2021-03-01 13:05] VITALS: BP 117/73; PULSE 78
[2021-03-03 13:08] VITALS: BP 116/64; PULSE 79
[2021-03-08 13:46] VITALS: BP 137/75; PULSE 83
[2021-03-10 13:00] VITALS: BP 122/71; PULSE 78
[2021-03-15 13:51] VITALS: BP 133/80; PULSE 77
[2021-03-17 13:05] VITALS: BP 130/77; PULSE 76
[2021-03-22 13:13] VITALS: BP 134/78; PULSE 74
[2021-03-24 13:06] VITALS: BP 131/75; PULSE 74
== END 2021-03-29 23:59 | disposition home or self-care (01) ==
LOC: CR 13:00
PROVIDERS: Visit Provider Family Medicine
DX: Z51.89 Encounter for other specified aftercare (principal)

== ENCOUNTER 2021-04-28 13:00 | Outpatient (RCR) | payer SELFPAY ==
[2021-03-30 00:07] VITALS: BP 131/75; PULSE 74
[2021-04-05 13:11] VITALS: BP 122/80; PULSE 78
[2021-04-12 13:10] VITALS: BP 103/66; PULSE 72
[2021-04-14 13:02] VITALS: BP 127/72; PULSE 83
[2021-04-19 12:59] VITALS: BP 129/78; PULSE 78
[2021-04-21 13:55] VITALS: BP 123/76; PULSE 81
[2021-04-26 13:30] VITALS: BP 128/70; PULSE 79
[2021-04-28 13:04] VITALS: BP 123/76; PULSE 83
[2021-05-03 13:01] VITALS: BP 135/81; PULSE 83
== END 2021-04-28 23:59 | disposition home or self-care (01) ==
LOC: CR 13:00
PROVIDERS: Visit Provider Family Medicine
DX: Z51.89 Encounter for other specified aftercare (principal)

== ENCOUNTER 2021-05-24 13:00 | Outpatient (RCR) | payer SELFPAY ==
[2021-04-29 00:20] VITALS: BP 123/76; PULSE 83
[2021-05-17 12:58] VITALS: BP 135/80; PULSE 82
[2021-05-19 13:04] VITALS: BP 113/71; PULSE 81
[2021-05-24 14:31] VITALS: BP 131/82; PULSE 82
== END 2021-05-29 23:59 | disposition home or self-care (01) ==
LOC: CR 13:00
PROVIDERS: Visit Provider Family Medicine
DX: Z51.89 Encounter for other specified aftercare (principal); R69 Illness, unspecified

== ENCOUNTER 2021-06-16 13:00 | Outpatient (RCR) | payer SELFPAY ==
[2021-05-30 00:23] VITALS: BP 131/82; PULSE 82
[2021-05-31 13:00] VITALS: BP 121/80; PULSE 79
[2021-06-02 13:04] VITALS: BP 115/73; PULSE 76
[2021-06-07 13:08] VITALS: BP 118/76; PULSE 80
[2021-06-09 13:08] VITALS: BP 121/77; PULSE 75
[2021-06-16 12:58] VITALS: BP 115/72; PULSE 77
== END 2021-06-28 23:59 | disposition home or self-care (01) ==
LOC: CR 13:00
PROVIDERS: Visit Provider Family Medicine
DX: Z51.89 Encounter for other specified aftercare (principal); R69 Illness, unspecified

== ENCOUNTER 2021-06-17 02:56 | Outpatient (CLI) | payer MEDICARE, OTHER, SELFPAY ==
[2021-06-17 12:27] LABS: HCT 41.9 % (40.0-50.0); HGB 13.3 g/dL (13.5-17.5); MCHC 31.7 % (32.0-36.0); MCV 91.3 fL (80-95); MPV 11.2 fL (8.0-11.0); Platelet Count 167 10^3/uL (130-400); RBC 4.59 10^6/uL (4.36-5.78); RDW 13.5 % (11.8-14.1); RDW-SD 45.2 fL; WBC 5.08 10^3/uL (4.4-10.8)
[2021-06-17 12:47] LABS: ALT 31 U/L (16-63); AST 19 U/L (15-37); Albumin 3.5 g/dL (3.4-5.0); Alkaline Phosphatase 118 U/L (46-116); Anion Gap 8.2 mmol/L (3-11); BUN 18 mg/dL (7-18); Bilirubin, Total 0.5 mg/dL (0.2-1.0); CO2 29.8 mmol/L (21.0-32.0); Calcium 8.8 mg/dL (8.5-10.1); Calculated LDL 75 mg/dL (<100); Chloride 105 mmol/L (98-107); Cholesterol 137 mg/dL (<200); Glucose 110 mg/dL (74-106); HDL Cholesterol 46 mg/dL (40-60); Potassium 4.1 mmol/L (3.5-5.1); Sodium 143 mmol/L (136-145); TSH (W/Ref FT4) 0.66 uIU/mL (0.36-3.74); Total Protein 6.5 g/dL (6.4-8.2); Triglyceride 81 mg/dL (<150)
== END 2021-06-17 02:57 | disposition home or self-care (01) ==
DX: Z00.00 Encounter for general adult medical examination without abnormal findings (principal); D50.9 Iron deficiency anemia, unspecified; E55.9 Vitamin D deficiency, unspecified; Z13.220 Encounter for screening for lipoid disorders; Z13.29 Encounter for screening for other suspected endocrine disorder
CPT/HCPCS: 36415; 80053; 80061; 82306; 85027; 84443

== ENCOUNTER 2021-07-09 09:19 | Outpatient (CLI) | payer MEDICARE, OTHER, SELFPAY ==
--- NOTE | 2021-07-09 09:15 | RT.EKG_ITS ---
APPROVED REPORT Exam: Resting ECG Reason for Exam: chest pressure Patient Location: O HR:70 bpm ECG Measurements Heart Rate 70 AXIS ME 140 P 44 QRSd 87 QRS 56 QT 389 T 30 QTc 421 Conclusion Sinus rhythm...normal P axis, V-rate 60- 99 Posterior infarct, old...prom R T, V1-V3 or Q >40mS, V7-V9
== END 2021-07-09 09:20 | disposition home or self-care (01) ==
LOC: DI.CM 09:22
PROVIDERS: Visit Provider Nurse Practitioner Family
DX: R07.89 Other chest pain (principal)
CPT/HCPCS: 93010

== ENCOUNTER 2021-07-09 10:02 | Emergency (ER) | payer MEDICARE, OTHER, SELFPAY ==
[2021-07-09] VITALS (11 sets, daily range): BP systolic 127–158; BP diastolic 66–81; PULSE 64–86; RESP 13–19; TEMP 36.8; O2SAT 95–100
--- NOTE | 2021-07-09 10:00 | RT.EKG_ITS ---
APPROVED REPORT Exam: Resting ECG Reason for Exam: chest pain Patient Location: E HR:73 bpm ECG Measurements Heart Rate 73 AXIS NM 150 P 53 QRSd 89 QRS 63 QT 389 T 14 QTc 431 Conclusion Sinus rhythm...normal P axis, V-rate 60- 99 Posterior infarct, old...prom R T, V1-V3 or Q >40mS, V7-V9
--- NOTE | 2021-07-09 10:30 | DI.RAD_ITS ---
Exam(s) XR PORTABLE CHEST AP EXAM: XR PORTABLE CHEST AP CLINICAL HISTORY: cough TECHNIQUE: 2D digital imaging was performed of the chest. One image was obtained. An AP view was ob tained. COMPARISON: CR CHEST 2 VIEWS PA,LAT from 07/26/2015 CR CHEST 2 VIEWS PA,LAT from 07/26/2015 FINDINGS: MEDIASTINUM: Normal. HEART: Normal. PULMONARY VASCULATURE: Normal. LUNGS: Clear. PLEURAL SPACE: No pleural effusion or pneumothorax. BONE:Within normal limits for the patient's age. OTHER FINDINGS:Normal. IMPRESSION: No acute pulmonary findings. DATA REPOSITORY: RADIATION DOSE DELIVERED:
[2021-07-09] MEDS: Aspirin 81 MG CHEW 243 MG CH (10:35)
[2021-07-09 10:37] LABS: Abs Immature Grans 0.06 10^3/uL (0.0-0.06); Absolute Basophil Count 0.07 10^3/uL (0.0-0.2); Absolute Eosinophil Count 0.26 10^3/uL (0.0-0.7); Absolute Lymphocyte Count 1.08 10^3/uL (1.2-3.4); Absolute Monocyte Count 0.65 10^3/uL (0.1-0.8); Absolute Neutrophil Count 3.68 10^3/uL (1.2-6.7); Basophils % 1.2; Eosinophils % 4.5; HCT 41.9 % (40.0-50.0); HGB 13.2 g/dL (13.5-17.5); Lymphocytes % 18.6; MCH 28.7 pg (27.0-33.0); MCHC 31.5 % (32.0-36.0); MCV 91.1 fL (80-95); MPV 10.5 fL (8.0-11.0); Monocytes % 11.2; Neutrophils % 63.5; Nucleated RBC 0 %; Platelet Count 152 10^3/uL (130-400); RDW 13.3 % (11.8-14.1)
[2021-07-09 10:57] LABS: ALT 24 U/L (16-63); AST 19 U/L (15-37); Albumin 3.4 g/dL (3.4-5.0); Alkaline Phosphatase 110 U/L (46-116); Anion Gap 5.1 mmol/L (3-11); BUN 15 mg/dL (7-18); Bilirubin, Total 0.3 mg/dL (0.2-1.0); CO2 29.9 mmol/L (21.0-32.0); CREATININE 0.9 mg/dL (0.70-1.30); Calcium 8.7 mg/dL (8.5-10.1); Chloride 104 mmol/L (98-107); Glucose 109 mg/dL (74-106); Magnesium 2.2 mg/dL (1.8-2.4); NT-proBNP 123 pg/mL (<300); Potassium 4.4 mmol/L (3.5-5.1); Sodium 139 mmol/L (136-145)
[2021-07-09 10:58] LABS: Troponin I < 0.05 ng/mL (<0.06)
--- NOTE | 2021-07-09 11:00 | DI.CT_ITS ---
Exam(s) CT CHEST PE CTA EXAM: CT CHEST PE CTA CLINICAL HISTORY: cough/pressure/elevated dimer. TECHNIQUE: Imaging Protocol: Axial CT angiography was performed with multi-slice acquisition and mu lti-planar and/or 3D reconstructions. CONTRAST MATERIAL: Intravenous: Omnipaque 350 Contrast volume:100 mL COMPARISON: CT CTA THORAX from 11/06/2017 CT CTA THORAX from 11/06/2017 FINDINGS: Tracheobronchial tree: Patent where visualized. Pulmonary parenchyma: No consolidation or dominant measurable mass. No architectural distortion. Atel ectasis is seen in the lung bases. There is stable less than 3 mm pulmonary nodules. Pulmonary Arteries: No evidence of filling defect to suggest pulmonary emboli. Mediastinum and Ashlee: No dominant adenopathy or fluid collection. The esophagus is unremarkable. Visualized thyroid gland: Unremarkable. Pleura: No effusion or pneumothorax. Heart: The heart is not dilated. Coronary artery calcifications are present. No pericardial effusion . Aorta: Thoracic aorta non-dilated. No evidence of dissection. Atherosclerosis. Upper abdomen: Unremarkable. Soft tissues: Unremarkable. Bones: Within normal limits for the patient's age. IMPRESSION: 1. No evidence of pulmonary embolism, thoracic aortic dissection or aneurysm. 2. Stable pulmonary nodules since 11/06/2017. RADIATION DOSE DELIVERED: 504.31mGy.cm Total DLP DATA REPOSITORY: All CT scans at this facility are submitted to the National Radiology Data Registry (NRDR) Dose Index Registry (DIR) with the [employer] (ACR). RADIATION OPTIMIZATION: All CT scans at this facility use at least one of these dose optimization te chniques: automated exposure control; mA and/or kV adjustment per patient size (includes targeted exa ms where dose is matched to clinical indication); or iterative reconstruction.
[2021-07-09 11:07] LABS: D-Dimer 698 ng/mlFEU (<500)
[2021-07-09] MEDS: Omnipaque 350 MG/ML 100 ML BTL IJ (12:03)
[2021-07-09] MEDS: Normal Saline Flush 10 ML SYR IVP (12:05)
--- NOTE | 2021-07-09 12:29 | DI.VRAD_ITS ---
PROCEDURE INFORMATION: Exam: CTA Chest With Contrast Exam date and time: 07/09/2021 11:10 AM Age: 70 years old Clinical indication: Other: Cough/pressure/elevated dimer TECHNIQUE: Imaging protocol: Computed tomographic angiography of the chest with contrast. 3D rendering (Not supervised by radiologist): MIP and/or 3D reconstructed images were created by the technologist. Radiation optimization: All CT scans at this facility use at least one of these dose optimization techniques: automated exposure control; mA and/or kV adjustment per patient size (includes targeted exams where dose is matched to clinical indication); or iterative reconstruction. Contrast material: OMNIPAQUE 350; Contrast volume: 100 ml; Contrast route: INTRAVENOUS (IV); COMPARISON: CTA THORAX 05/02/2018 15:21 FINDINGS: Pulmonary arteries: Normal. No pulmonary emboli. Aorta: Unremarkable. No aortic aneurysm. No aortic dissection. Lungs: There are at least 3 small 2-3 mm soft tissue nodules in the right upper lobe. The lungs otherwise are clear with no focal infiltrate. Pleural spaces: Unremarkable. No pneumothorax. No pleural effusion. Heart: Unremarkable. No cardiomegaly. No pericardial effusion. Lymph nodes: Unremarkable. No enlarged lymph nodes. Bones/joints: Unremarkable. No acute fracture. Soft tissues: Unremarkable IMPRESSION: No evidence of pulmonary embolus. Incidental note of tiny nodular densities in the right upper lobe. Suggest short-term follow-up of these. Dictated and Authenticated by: Declan James MD. Ordering:DIVINA Madrigal MD
--- NOTE | 2021-07-09 12:30 | DI.VRAD_ITS ---
PROCEDURE INFORMATION: Exam: XR Chest Exam date and time: 07/09/2021 10:31 AM Age: 70 years old Clinical indication: Cough TECHNIQUE: Imaging protocol: XR of the chest. Views: 1 view. COMPARISON: CTA THORAX 05/02/2018 15:21 FINDINGS: Lungs: Lungs are clear with no infiltrate or nodule. Pleural spaces: Unremarkable. No pleural effusion. No pneumothorax. Heart/Mediastinum: Cardiomediastinal silhouette is normal. Bones/joints: Unremarkable. Moderate thoracic spurring noted. IMPRESSION: No active cardiopulmonary disease. Dictated and Authenticated by: Declan James MD. Ordering:DIVINA Madrigal MD
--- NOTE | 2021-07-09 12:32 | W.ED.GENAD ---
Discharge Plan Disposition Patient Disposition: HOME Condition: Stable Discharge Details Clinical Impression: Cough, Chest pressure Primary Care Provider: Dahlia Wylie ED Provider: Rohan Lindo Home Meds and New Rx's Prescriptions: Continued clomipramine 50 mg capsule 50 mg PO HS RF: 0 methylphenidate HCl [Concerta] 54 mg tablet extended release 24hr 54 mg PO QAM RF: 0 Latuda 20 mg tablet 40 mg PO QPM RF: 0 hydroxyzine pamoate 25 mg capsule 25 - 50 mg PO BID PRNRF: 0 nitroglycerin 0.4 mg tablet, sublingual 0.4 mg SL Q5M PRN (Reason: chest pain) Qty: 30 RF: 2 gabapentin [Neurontin] 800 MG tablet 400 mg PO BID Qty: 270 RF: 4 Myrbetriq 50 MG tablet extended release 24 hr 50 mg PO DAILY Qty: 90 RF: 4 ibuprofen 400 mg tablet 400 mg PO TID RF: 0 acetaminophen 500 mg tablet 500 mg PO Q6H PRNRF: 0 atorvastatin 40 mg tablet 40 mg PO DAILY Qty: 90 RF: 3 bisoprolol fumarate 5 mg tablet 5 mg PO DAILY Qty: 90 RF: 6 tolterodine [Detrol LA] 4 mg capsule,extended release 24hr 4 mg PO DAILY Qty: 90 RF: 3 aspirin 81 mg tablet,delayed release (DR/EC) 81 mg PO DAILY Qty: 30 RF: 12 magnesium oxide 500 mg capsule 500 mg PO DAILY Qty: 30 RF: 12 riboflavin (vitamin B2) 100 mg tablet 100 mg PO BID Qty: 60 RF: 12 cholecalciferol (vitamin D3) 50 mcg (2,000 unit) capsule 100 mcg PO DAILY Qty: 60 RF: 12 pantoprazole 40 mg tablet,delayed release (DR/EC) 40 mg PO DAILY Qty: 30 RF: 11 diclofenac sodium 1 % gel 2 g topical QID PRN (Reason: neck strain) Qty: 50 RF: 4 calcium carbonate 500 mg calcium (1,250 mg) Tablet,Chewable 2 mg PO PRN PRNRF: 0 Discharge Instructions Instructions: Chest Pain (ED), Acute Cough (ED) Additional Instructions: Work-up here in the ER does not reveal any obvious emergent process including her laboratory values injure CTA of the chest. Your Covid test that was obtained at the urgent care is pending, I do recommend quarantining until this has come back negative. Please watch for new or worsening symptoms and return to the ER for any concerns. Lastly, I strongly recommend contacting your primary care provider on Sunday to discuss your ER visit and need for outpatient reevaluation. Outpatient stress test and/or echo cardiogram may be indicated for further evaluation of your symptoms. Discharge Data Discharge Date/Time-TO BE ENTERED AT DEPARTURE: 07/09/21 14:32 Medical Decision Making This 70-year-old gentleman presents with 2-week history of primarily a dry cough, 1 week history of diffuse anterior chest pressure worse with coughing. Was evaluated at [facility], had a negative rapid strep and a Covid test is pending, sent to the ER for further evaluation. Clinically he appears well, nontoxic, pulse in the 70s, no evidence of tachypnea, he is afebrile, O2 sat is 100% on room air. Symptoms have been present for at least 1 week consistently, based upon the story low suspicion for ACS, I do believe obtaining a single troponin and EKG is sufficient for cardiac rule out. Although low suspicion for PE, will obtain D-dimer as well. Patient states his had similar symptoms and was diagnosed with pneumonia. Clinically this appears more of a viral syndrome than a bacterial pneumonia but will obtain routine screening laboratories and a chest x-ray. He has not required any oxygen. No evidence of leukocytosis. His D-dimer is minimally elevated at 698. Will pursue CTA. Chest x-ray was unremarkable. Electrolytes unremarkable. Renal function normal. Magnesium 2.2, troponin less than 0.05. BNP 123. Discussed initial work-up with patient. He is agreeable to CTA of the chest. Chest CTA unremarkable for emergent process. He does appear to have nodule. Patient reports that he knows he has lung nodule. Patient remains hemodynamically stable. He feels well. He has no additional questions or concerns comfortable discharge. Strict discharge and return precautions provided. Otherwise he will contact his primary care provider to discuss his ongoing outpatient reevaluation. We did discuss a potential outpatient stress test and/or echocardiogram may be indicated for further evaluation is ongoing symptoms. Again she states he is already aware of his pulmonary nodules. This documentation was generated using Verastemation system, please disregard any oddities of phrase or misspellings. Medical Records Medical records reviewed: Yes I reviewed the patient's medical records. Imaging Data Radiologic Study: Attestation: I personally reviewed and interpreted this imaging study as follows: Imaging: CT Scan Radiologist's impression: PROCEDURE INFORMATION: Exam: CTA Chest With Contrast Exam date and time: 07/09/2021 11:10 AM Age: 70 years old Clinical indication: Other: Cough/pressure/elevated dimer TECHNIQUE: Imaging protocol: Computed tomographic angiography of the chest with contrast. 3D rendering (Not supervised by radiologist): MIP and/or 3D reconstructed images were created by the technologist. Radiation optimization: All CT scans at this facility use at least one of these dose optimization techniques: automated exposure control; mA and/or kV adjustment per patient size (includes targeted exams where dose is matched to clinical indication); or iterative reconstruction. Contrast material: OMNIPAQUE 350; Contrast volume: 100 ml; Contrast route: INTRAVENOUS (IV); COMPARISON: CTA THORAX 05/02/2018 15:21 FINDINGS: Pulmonary arteries: Normal. No pulmonary emboli. Aorta: Unremarkable. No aortic aneurysm. No aortic dissection. Lungs: There are at least 3 small 2-3 mm soft tissue nodules in the right upper lobe. The lungs otherwise are clear with no focal infiltrate. Pleural spaces: Unremarkable. No pneumothorax. No pleural effusion. Heart: Unremarkable. No cardiomegaly. No pericardial effusion. Lymph nodes: Unremarkable. No enlarged lymph nodes. Bones/joints: Unremarkable. No acute fracture. Soft tissues: Unremarkable JESUS ORTIZ JR Preliminary Radiology Report DIRECTOR CAREER (QA) DISCREPANCY? If there is a discrepancy between the preliminary and final interpretation, please notify [facility] via [email or web address]. If you do not have access to our QA portal, call our QA team at [phone] CONFIDENTIALITY STATEMENT This report is intended only for the use of the referring physician, and only in accordance with law, If you received this in error, call [phone] Page 2 of 2 IMPRESSION: No evidence of pulmonary embolus. Incidental note of tiny nodular densities in the right upper lobe. Suggest short-term follow-up of these. Thank you for allowing us to participate in the care of your patient. Radiologic Study #2: Attestation: I personally reviewed and interpreted this imaging study as follows: Imaging: X-Ray Radiologist's impression: PROCEDURE INFORMATION: Exam: XR Chest Exam date and time: 07/09/2021 10:31 AM Age: 70 years old Clinical indication: Cough TECHNIQUE: Imaging protocol: XR of the chest. Views: 1 view. COMPARISON: CTA THORAX 05/02/2018 15:21 FINDINGS: Lungs: Lungs are clear with no infiltrate or nodule. Pleural spaces: Unremarkable. No pleural effusion. No pneumothorax. Heart/Mediastinum: Cardiomediastinal silhouette is normal. Bones/joints: Unremarkable. Moderate thoracic spurring noted. IMPRESSION: No active cardiopulmonary disease. Lab Data Lab results reviewed: Yes I reviewed the patient's lab results. Labs: Laboratory Tests Range/Units 07/09/21 07/09/21 07/09/21 10:20 10:20 10:20 WBC (4.4-10.8) 10^3/uL 5.80 RBC (4.36-5.78) 10^6/uL 4.60 Hgb (13.5-17.5) g/dL 13.2 L Hct (40.0-50.0) % 41.9 MCV (80-95) fL 91.1 MCH (27.0-33.0) pg 28.7 MCHC (32.0-36.0) % 31.5 L RDW (11.8-14.1) % 13.3 Plt Count (130-400) 10^3/uL 152 MPV (8.0-11.0) fL 10.5 Immature Gran % 1.0 Neutrophils % 63.5 Lymphocytes % 18.6 Monocytes % 11.2 Eosinophils % 4.5 Basophils % 1.2 Nucleated RBC % % 0 Absolute Neutrophils (1.2-6.7) 10^3/uL 3.68 Absolute Lymphocytes (1.2-3.4) 10^3/uL 1.08 L Absolute Monocytes (0.1-0.8) 10^3/uL 0.65 Absolute Eosinophils (0.0-0.7) 10^3/uL 0.26 Absolute Basophils (0.0-0.2) 10^3/uL 0.07 D-Dimer (<500) ng/mlFEU 698 H Sodium (136-145) mmol/L 139 Potassium (3.5-5.1) mmol/L 4.4 Chloride (98-107) mmol/L 104 Carbon Dioxide (21.0-32.0) mmol/L 29.9 Anion Gap (3-11) mmol/L 5.1 BUN (7-18) mg/dL 15 Creatinine (0.70-1.30) mg/dL 0.9 Estimated GFR/1.73 m2 (mL/min/1.73m2) >= 60.00 Glucose (74-106) mg/dL 109 H Calcium (8.5-10.1) mg/dL 8.7 Magnesium (1.8-2.4) mg/dL 2.2 Total Bilirubin (0.2-1.0) mg/dL 0.3 AST (15-37) U/L 19 ALT (16-63) U/L 24 Alkaline Phosphatase (46-116) U/L 110 Troponin I (<0.06) ng/mL < 0.05 NT-Pro-B Natriuret Pep (<300) pg/mL 123 Total Protein (6.4-8.2) g/dL 7.0 Albumin (3.4-5.0) g/dL 3.4 ECG Data Attestation: I personally reviewed and interpreted this ECG (s) as follows: Interpretation: Sinus rhythm, ventricular rate of 73. No STEMI. Please see official report by Dr. Grant HPI General Mode of arrival: ambulatory. Date/Time Provider Initiated Documentation: 07/09/21 10:18. Limitations to Documentation: no limitations. Information obtained by: patient. HPI Narrative: This is a 70-year-old gentleman, past medical history that includes anxiety, depression, sleep apnea, lung nodule, AR without stent placement, chronic headaches, presenting to the ER today directed here by express care for a primarily dry cough for the past 2 weeks associated with anterior substernal chest pressure mild in nature over the past week, constant, nothing makes it better, but coughing makes it worse. He denies any neck pain, fever, shortness of breath. He does report a mild sore throat, and headache earlier in the week but the headache has resolved now. He was seen at the urgent care and had a negative rapid strep at that time, Covid test was obtained but pending. He denies any abdominal pain, nausea, vomiting, dysuria, hematuria pain or swelling in his legs, history of DVT or PE. He has not taken any medications for his stent. Patient states that his recently had similar symptoms and was subsequently diagnosed with pneumonia. Patient has been taking his regular medications as directed but has not taken any [id number] occasions for symptomatic control. Related Data Home Medications Medication Instructions Recorded Confirmed gabapentin [Neurontin] 400 mg PO BID #270 tab-cap 01/28/13 07/09/21 Myrbetriq 50 mg PO DAILY #90 tab-cap 09/14/17 07/09/21 methylphenidate HCl 54 mg 54 mg PO QAM 06/10/19 07/09/21 tablet,extended release 24 hr acetaminophen 500 mg tablet 500 mg PO Q6H PRN 10/02/19 07/09/21 ibuprofen 400 mg tablet 400 mg PO TID 10/02/19 07/09/21 lurasidone 20 mg tablet 40 mg PO QPM tab 11/27/19 07/09/21 clomipramine 50 mg capsule 50 mg PO HS cap 04/13/20 07/09/21 atorvastatin 40 mg tablet 40 mg PO DAILY #90 tab-cap 09/17/20 07/09/21 hydroxyzine pamoate 25 mg capsule 25 - 50 mg PO BID PRN cap 10/21/20 07/09/21 nitroglycerin 0.4 mg sublingual 0.4 mg SL Q5M PRN #30 tab 10/21/20 07/09/21 tablet bisoprolol fumarate 5 mg tablet 5 mg PO DAILY #90 tab 01/10/21 07/09/21 tolterodine 4 mg capsule,extended 4 mg PO DAILY #90 cap 01/10/21 07/09/21 release 24 hr aspirin 81 mg tablet,delayed 81 mg PO DAILY #30 tab-cap 01/28/21 07/09/21 release magnesium oxide 500 mg capsule 500 mg PO DAILY #30 cap 01/28/21 07/09/21 riboflavin (vitamin B2) 100 mg 100 mg PO BID #60 tab 01/28/21 07/09/21 tablet cholecalciferol (vitamin D3) 50 100 mcg PO DAILY #60 cap 02/15/21 07/09/21 mcg (2,000 unit) capsule calcium carbonate 2 mg PO PRN PRN 02/19/21 07/09/21 pantoprazole 40 mg tablet,delayed 40 mg PO DAILY #30 tab-cap 04/18/21 07/09/21 release diclofenac sodium 1 % topical gel 2 g TOPICAL QID PRN #50 g 05/23/21 07/09/21 Previous Rx's Medication Instructions Recorded Myrbetriq 50 mg PO DAILY #90 tab-cap 09/14/17 atorvastatin 40 mg tablet 40 mg PO DAILY #90 tab-cap 09/17/20 nitroglycerin 0.4 mg sublingual 0.4 mg SL Q5M PRN #30 tab 10/21/20 tablet bisoprolol fumarate 5 mg tablet 5 mg PO DAILY #90 tab 01/10/21 tolterodine 4 mg capsule,extended 4 mg PO DAILY #90 cap 01/10/21 release 24 hr aspirin 81 mg tablet,delayed 81 mg PO DAILY #30 tab-cap 01/28/21 release magnesium oxide 500 mg capsule 500 mg PO DAILY #30 cap 01/28/21 riboflavin (vitamin B2) 100 mg 100 mg PO BID #60 tab 01/28/21 tablet cholecalciferol (vitamin D3) 50 100 mcg PO DAILY #60 cap 02/15/21 mcg (2,000 unit) capsule pantoprazole 40 mg tablet,delayed 40 mg PO DAILY #30 tab-cap 04/18/21 release diclofenac sodium 1 % topical gel 2 g TOPICAL QID PRN #50 g 05/23/21 Allergies Allergy/AdvReac Type Severity Reaction Status Date / Time Penicillins Allergy Unknown Verified 07/09/21 10:16 metoprolol AdvReac fatigue Verified 07/09/21 10:16 General Stated Complaint: Chest Pain MARTY: 2 Review of Systems Constitutional Constitutional: Denies fatigue, Denies fever(s) and Reports headache(s) Eyes Eyes: Denies change in vision ENT Ears, Nose, Mouth, and Throat: Reports headache(s), Denies neck pain and Reports sore throat Cardiovascular Cardiovascular: Reports chest pain (Anterior pressure) and Denies dyspnea Respiratory Respiratory: Reports cough and Denies dyspnea Gastrointestinal Gastrointestinal: Denies abdominal pain, Denies nausea and Denies vomiting Genitourinary Genitourinary: Denies dysuria Musculoskeletal Musculoskeletal: Denies back pain and Denies neck pain Integumentary/Breasts Skin/Breast: Denies rash Neurologic Neurologic: Reports headache(s) Endocrine Endocrine: Denies fatigue PFSH All Active Problems Cough (Acute) Chest pressure (Acute) Cervicalgia (Acute) Dry eye syndrome of both eyes (Acute) Vitamin D deficiency (Acute) Nasal turbinate hypertrophy (Acute) Deviated nasal septum (Acute) Dental decay (Acute) Chronic daily headache (Acute) Post-nasal drip (Acute) Chronic rhinitis (Acute) Chronic intractable headache (Acute) Sinusitis (Acute) Urgency incontinence (Chronic 01/12/16) Tremor (Chronic) Rosacea (Chronic) Right anterior shoulder pain (Chronic 10/25/16) Polyp of colon (Chronic 06/28/07) Lung mass (Chronic 07/26/15) Left-sided low back pain without sciatica (Chronic 09/27/15) Knee pain (Chronic) Increased BMI (body mass index) (Chronic 08/13/17) GERD (gastroesophageal reflux disease) (Chronic 03/11/15) Elevated PSA, less than 10 ng/ml (Chronic 08/13/17) Degeneration of cervical intervertebral disc (Chronic) Chronic fatigue (Chronic 07/29/15) Cervical muscle pain (Chronic 05/10/16) Bladder outlet obstruction (Chronic 03/26/18) Arthritis (Chronic 01/26/16) Osteoarthritis of right knee (Chronic 09/01/13) Status post total knee replacement using cement (Chronic 09/01/13) Sleep apnea (Chronic) Anxiety and depression (Chronic) Surgical History Arthroplasty of knee (~2007) 2008 RIGHT, DR. ESCAMILLA 2013 Colonoscopy - MAC (04/07/13) DR. Scar ALLISON; 2 TUBULAR ADENOMAS Family History Mother Cancer Father Stroke Alcohol abuse Sister No problems noted. Sister , age 60 Cancer Brother Alcohol abuse Substance abuse Brother No problems noted. Brother Heart disease Maternal Grandfather Stroke Paternal Grandfather Stroke Son No problems noted. Son No problems noted. Other Depression Social History Smoking/Tobacco Use Status: Never Second Hand Exposure: Yes Smoking risk assessment performed?: Yes Alcohol Intake: never Details: one drink a year. Drug use: Never Substance use type: does not use Household members: spouse and children Housing: house Do you need help understanding health information?: Rarely Pets and animals: Yes Pets and animals: cat(s) and dog(s) Sexually active: No Do you think of yourself as: straight/heterosexual Current gender identity: male What is your relationship status?: How often do you talk on the phone with friends or family?: never How often do you get together with friends or relatives?: once per week How often do you attend muslim or orthodoxy services?: 4 or more times per year Do you belong to any clubs or organized social groups?: no Panel score (0-1 are the most socially isolated patients): 2 What type of physical activity do you participate in: walking Duration: 45-60 minutes/day Frequency: 1-2 times per week Seema/Jehovah'S Witness: Anglican Special seema needs: No Seatbelt use: always 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 Do you feel safe at home: Yes Do you feel safe in your relationship?: Yes Victim of physical abuse: No Victim of emotional abuse: No Victim of sexual abuse: No Would you like helpful sources: No Exam Const General: cooperative, healthy appearing, comfortable and no acute distress Orientation: alert, awake and oriented x3 HENMT Head: normal to inspection, normocephalic and atraumatic Face and sinus: normal facial exam Mouth: moist mucous membranes Throat: posterior oropharynx normal Eyes General: appearance normal, both eyes and all related structures Conjunctivae: conjunctivae normal Neck Neck: normal visual inspection, full ROM, no lymphadenopathy, no meningeal signs, trachea midline, supple and nontender Resp Effort & Inspection: normal respiratory effort, able to speak in complete sentences and cough Quality of cough: dry (Mild) Auscultation: clear to auscultation bilaterally Cardio Rate: regular rate Rhythm: regular rhythm GI Palpation: soft, not firm, no guarding, no pulsatile masses and nontender Back/Spine/Pelvis Back: No back tenderness Skin General skin exam: no rashes or lesions noted Neuro General: patient alert, patient awake, moves all extremities and no focal motor deficits Cognition: normal cognition Speech: speech normal Gait: normal gait Sensory Exam: no sensory deficits noted Extrem General: normal to inspection, full ROM, capillary refill normal, no pedal edema and no calf tenderness Psych Appearance: grossly normal Mental Status: mental status grossly normal Course Vital Signs Vital signs: Vital Signs Temperature 36.8 C 07/09/21 10:13 Pulse 74 07/09/21 10:13 Respiratory Rate 16 07/09/21 10:13 Blood Pressure 144/81 H 07/09/21 10:13 Pulse Oximetry 100 07/09/21 10:13 Temperature 36.8 C 07/09/21 10:13 Temperature Source Skin 07/09/21 10:13 Pulse 64 07/09/21 11:45 Pulse 68 07/09/21 11:16 Respiratory Rate 15 07/09/21 11:45 Respiratory Effort 07/09/21 10:25 Respiratory Depth Normal 07/09/21 10:25 Respiratory Pattern Normal 07/09/21 10:25 Blood Pressure 137/68 07/09/21 11:45 Blood Pressure Mean 85 07/09/21 11:45 Blood Pressure Position Supine 07/09/21 10:13 Pulse Oximetry 96 07/09/21 11:45 Pain Level 5 07/09/21 10:13 Lab/Test Results Lab/Test Results: Laboratory Tests Range/Units 07/09/21 07/09/21 07/09/21 10:20 10:20 10:20 WBC (4.4-10.8) 10^3/uL 5.80 RBC (4.36-5.78) 10^6/uL 4.60 Hgb (13.5-17.5) g/dL 13.2 L Hct (40.0-50.0) % 41.9 MCV (80-95) fL 91.1 MCH (27.0-33.0) pg 28.7 MCHC (32.0-36.0) % 31.5 L RDW (11.8-14.1) % 13.3 Plt Count (130-400) 10^3/uL 152 MPV (8.0-11.0) fL 10.5 Immature Gran % 1.0 Neutrophils % 63.5 Lymphocytes % 18.6 Monocytes % 11.2 Eosinophils % 4.5 Basophils % 1.2 Nucleated RBC % % 0 Absolute Neutrophils (1.2-6.7) 10^3/uL 3.68 Absolute Lymphocytes (1.2-3.4) 10^3/uL 1.08 L Absolute Monocytes (0.1-0.8) 10^3/uL 0.65 Absolute Eosinophils (0.0-0.7) 10^3/uL 0.26 Absolute Basophils (0.0-0.2) 10^3/uL 0.07 D-Dimer (<500) ng/mlFEU 698 H Sodium (136-145) mmol/L 139 Potassium (3.5-5.1) mmol/L 4.4 Chloride (98-107) mmol/L 104 Carbon Dioxide (21.0-32.0) mmol/L 29.9 Anion Gap (3-11) mmol/L 5.1 BUN (7-18) mg/dL 15 Creatinine (0.70-1.30) mg/dL 0.9 Estimated GFR/1.73 m2 (mL/min/1.73m2) >= 60.00 Glucose (74-106) mg/dL 109 H Calcium (8.5-10.1) mg/dL 8.7 Magnesium (1.8-2.4) mg/dL 2.2 Total Bilirubin (0.2-1.0) mg/dL 0.3 AST (15-37) U/L 19 ALT (16-63) U/L 24 Alkaline Phosphatase (46-116) U/L 110 Troponin I (<0.06) ng/mL < 0.05 NT-Pro-B Natriuret Pep (<300) pg/mL 123 Total Protein (6.4-8.2) g/dL 7.0 Albumin (3.4-5.0) g/dL 3.4
== END 2021-07-09 14:32 | disposition home or self-care (01) ==
PROVIDERS: Emergency Provider Physician Assistant
DX: R05.9 Cough, unspecified (principal); R07.89 Other chest pain; R79.1 Abnormal coagulation profile
CPT/HCPCS: 36415; 71275; 80053; 93005; 99285; 71045; 83735; 83880; 84484; 85025; 85379; 93010; 99284; J3490

== ENCOUNTER 2021-07-09 12:18 | Outpatient (REF) | payer MEDICARE, OTHER, SELFPAY ==
[2021-07-11 14:04] LABS: COVID-19 RT-PCR UVMMC Result Negative (Negative)
== END 2021-07-09 12:19 | disposition home or self-care (01) ==
LOC: NCHCN 12:18
PROVIDERS: Visit Provider Nurse Practitioner Family
DX: Z20.822 Contact with and (suspected) exposure to COVID-19 (principal); J02.9 Acute pharyngitis, unspecified; R05.9 Cough, unspecified; R07.89 Other chest pain
CPT/HCPCS: U0003; 87070

== ENCOUNTER 2021-07-25 00:37 | Outpatient (CLI) | payer MEDICARE, OTHER, SELFPAY ==
--- NOTE | 2021-07-25 13:00 | ETT_ITS ---
APPROVED REPORT Exam: Exercise Treadmill Patient Location: Out-Patient Room/Bed: Stress Nurse: Eleni Smith RN Ordering Provider:SLADE TRIPP, Contact Number: [phone] BMI: 34.43 Baseline Rhythm: Sinus Tachycardia Indications: RECENT CHEST PRESSURE Medical History Medical History: CAD, ME, Lung mass, Osteoarthritis, GERD, ELIAS Cardiac Medications: Atorvastatin, Nitroglycerin, Bisoprolol fumerate, Aspirin, Pantoprazole, Allergies: PNCs, Metoprolol Cardiac Risk Factors: FHX of CAD, CVD, Obesity Previous Cardiac Procedures: PCI (no stent placed) Pretest Chest Pain Characteristics: No chest pain Exercise History: Physically active Physical Disabilities: None Lung Sounds: Diminished TO Heart Sounds: Regular, Tachycardia Stress Test Details Test: Exercise stress testing was performed using a Dre protocol. Rest Stress HR Resting HR Supine: 107 bpm Max Heart Rate (APMHR): 152 bpm Resting HR Standin bpm Target HR (85% APMHR): 129 bpm Max HR Achieved: 158 bpm % of APMHR: 103 Recovery HR: 113 bpm HR response to stress: Accelerated HR response to stress Comment: Bisoprolol held for 24 hours BP Resting BP Supine: 136/82 mmHg Resting BP Standin/89 mmHg Max BP: 210/98 mmHg Recovery BP: 1144/90 mmHg BP response to stress: Abnormal hypertensive response to stress. ECG Resting ECG: Sinus Tachycardia, , Clear, Sinus Rhythm Ectopy: PACs Comment: diffuse baseline ST depressions Stress ECG: Sinus Tachycardia ST Change: No significant ST segment changes noted Arrhythmia: PACs Recovery ECG: Sinus Tachycardia Recovery ST Change: No significant ST segment changes noted Recovery Arrhythmia: PACs Clinical Reason for Termination: Dyspnea Stress Symptoms: Dyspnea Exercise duration: 3 min53 sec Highest Stage Reached: Stage 2: 2.5 mph at 12% grade. Exercise capacity: 5.67 METs Culver Treadmill Score: 3.6 Rate Pressure Product: 25921 Stress ECG Conclusion 1. Resting electrocardiogram showed rightward axis, early R wave transition 2. The patient exercised on Dre protocol and completed a workload of 5.67 METS, limited by dyspnea 3. Rapid increase in heart rate with exercise, possibly due to withholding of his beta-davy. Peak heart rate was greater than 100% of predicted for age 4. Mildly hypertensive blood pressure response to exercise 5. Electrocardiographically there was no evidence of myocardial ischemia 6. Sporadic atrial premature beats were seen Culver Treadmill Score is 3.6 which is Moderate risk. Stress Test Summary STAGE Time (mins) Speed (mph) Grade (%) HR BP SYMPTOMS METS Supine 107 136/82 Standing 120 140/89 1 3 1.7 10 146 146/80 SpO2 96%, c/o mod. SOB 4.6 2 6 2.5 12 SpO2 96%, c/o severe SOB 7 1 min recovery 148 162/78 mod SOB 3 min recovery 125 210/98 6 min recovery 118 172/92 SOB improved 9 min recovery 113 144/90 Patient did not endorse chest pressure during test.
== END 2021-07-25 00:57 ==
DX: I21.11 ST elevation (STEMI) myocardial infarction involving right coronary artery (principal); Z82.49 Family history of ischemic heart disease and other diseases of the circulatory system; I25.10 Atherosclerotic heart disease of native coronary artery without angina pectoris; E66.9 Obesity, unspecified; I49.1 Atrial premature depolarization
CPT/HCPCS: 93016; 93018; 93017

== ENCOUNTER 2021-07-26 13:00 | Outpatient (RCR) | payer SELFPAY ==
[2021-06-29 00:07] VITALS: BP 115/72; PULSE 77
[2021-07-05 14:26] VITALS: BP 119/69; PULSE 86
[2021-07-07 13:05] VITALS: BP 125/79; PULSE 77
[2021-07-14 13:06] VITALS: BP 113/68; PULSE 72
[2021-07-26 13:16] VITALS: BP 125/73; PULSE 78
== END 2021-07-29 23:59 | disposition home or self-care (01) ==
LOC: CR 13:00
PROVIDERS: Visit Provider Family Medicine
DX: Z51.89 Encounter for other specified aftercare (principal); R69 Illness, unspecified

== ENCOUNTER 2021-08-01 15:08 | Outpatient (RCR) | payer SELFPAY ==
[2021-07-30 00:04] VITALS: BP 125/73; PULSE 78
== END 2021-08-29 23:59 | disposition home or self-care (01) ==
LOC: CR 15:08
PROVIDERS: Visit Provider Family Medicine
DX: R69 Illness, unspecified (principal)

== ENCOUNTER 2021-08-15 15:00 | Outpatient (REF) | payer MEDICARE, SELFPAY | END 2021-08-15 15:01 | disposition home or self-care (01) | LOC: LBN 15:00 | PROVIDERS: Visit Provider Urology | DX: R39.9 Unspecified symptoms and signs involving the genitourinary system (principal) | CPT/HCPCS: 87077; 87086; 87186 ==

== ENCOUNTER 2021-10-25 13:00 | Outpatient (RCR) | payer SELFPAY ==
[2021-09-29 12:54] VITALS: BP 125/63; PULSE 76
[2021-10-04 13:04] VITALS: BP 126/74; PULSE 76
[2021-10-06 13:04] VITALS: BP 122/68; PULSE 75
[2021-10-11 13:06] VITALS: BP 122/65; PULSE 81
[2021-10-13 12:57] VITALS: BP 120/66; PULSE 76
[2021-10-18 13:01] VITALS: BP 125/68; PULSE 81; O2SAT 98
[2021-10-25 13:09] VITALS: BP 136/78; PULSE 83
[2021-10-27 13:06] VITALS: BP 114/66; PULSE 78
== END 2021-10-27 23:59 | disposition home or self-care (01) ==
LOC: CR 13:00
PROVIDERS: Visit Provider Family Medicine
DX: R69 Illness, unspecified (principal)

== ENCOUNTER 2021-11-15 15:58 | Outpatient (REF) | payer MEDICARE, SELFPAY ==
[2021-11-17 12:32] LABS: COVID-19 RT-PCR UVMMC Result Negative (Negative)
== END 2021-11-15 15:59 | disposition home or self-care (01) ==
LOC: LBN 15:58
PROVIDERS: Visit Provider Family Medicine
DX: J02.9 Acute pharyngitis, unspecified (principal); Z20.822 Contact with and (suspected) exposure to COVID-19
CPT/HCPCS: U0003; 87070

== ENCOUNTER 2021-11-24 13:00 | Outpatient (RCR) | payer MEDICARE, SELFPAY ==
[2021-10-28 00:17] VITALS: BP 114/66; PULSE 78
[2021-11-03 13:00] VITALS: BP 143/70; PULSE 81
[2021-11-08 13:15] VITALS: BP 123/74; PULSE 80
[2021-11-22 13:08] VITALS: BP 114/66; PULSE 78
[2021-11-24 12:58] VITALS: BP 125/69; PULSE 81
== END 2021-11-26 23:59 | disposition home or self-care (01) ==
LOC: CR 13:00
PROVIDERS: Visit Provider Internal Medicine Cardiovascular Disease
DX: R69 Illness, unspecified (principal)

== ENCOUNTER → 2021-12-06 08:52 | Outpatient (BNVA) | payer MEDICARE, SELFPAY | PROVIDERS: Visit Provider Internal Medicine Cardiovascular Disease | DX: I25.10 Atherosclerotic heart disease of native coronary artery without angina pectoris (principal) | CPT/HCPCS: 99213 ==

== ENCOUNTER 2021-12-13 02:06 | Outpatient (CLI) | payer MEDICARE, SELFPAY | END 2021-12-13 02:07 | disposition home or self-care (01) | LOC: LBO 02:06 | DX: R39.89 Other symptoms and signs involving the genitourinary system (principal) | CPT/HCPCS: 87077; 87086; 87186 ==

== ENCOUNTER 2021-12-20 13:00 | Outpatient (RCR) | payer SELFPAY ==
[2021-11-27 00:16] VITALS: BP 125/69; PULSE 81
[2021-12-01 12:59] VITALS: BP 120/66; PULSE 76
[2021-12-06 13:05] VITALS: BP 116/66; PULSE 73
[2021-12-13 13:17] VITALS: BP 119/63; PULSE 82
[2021-12-20 13:51] VITALS: BP 131/70; PULSE 82
[2021-12-22 12:55] VITALS: BP 113/65; PULSE 71
== END 2021-12-27 23:59 | disposition home or self-care (01) ==
LOC: CR 13:00
PROVIDERS: Visit Provider Internal Medicine Cardiovascular Disease
DX: R69 Illness, unspecified (principal)

== ENCOUNTER 2022-01-26 13:00 | Outpatient (RCR) | payer SELFPAY ==
[2021-12-28 00:07] VITALS: BP 113/65; PULSE 71
[2021-12-29 13:02] VITALS: BP 117/73; PULSE 79
[2022-01-05 12:58] VITALS: BP 119/64; PULSE 74
[2022-01-10 14:11] VITALS: BP 113/67; PULSE 82
[2022-01-17 14:03] VITALS: BP 109/65; PULSE 75
[2022-01-19 13:01] VITALS: BP 117/54; PULSE 78
== END 2022-01-26 23:59 | disposition home or self-care (01) ==
LOC: CR 13:00
PROVIDERS: Visit Provider Internal Medicine Cardiovascular Disease
DX: R69 Illness, unspecified (principal)

== ENCOUNTER 2022-02-14 16:51 | Outpatient (REF) | payer MEDICARE, SELFPAY | END 2022-02-14 16:52 | disposition home or self-care (01) | LOC: LBN 16:51 | PROVIDERS: Visit Provider Nurse Practitioner | DX: N39.0 Urinary tract infection, site not specified (principal); R97.20 Elevated prostate specific antigen [PSA]; E11.9 Type 2 diabetes mellitus without complications; R35.0 Frequency of micturition | CPT/HCPCS: 87077; 87086; 87186 ==

== ENCOUNTER 2022-02-23 12:59 | Outpatient (RCR) | payer SELFPAY ==
[2022-02-07 12:57] VITALS: BP 124/69; PULSE 80
[2022-02-09 14:31] VITALS: BP 111/65; PULSE 72
[2022-02-14 12:48] VITALS: BP 121/73; PULSE 84
[2022-02-16 13:07] VITALS: BP 112/72; PULSE 77
[2022-02-21 13:48] VITALS: BP 117/69; PULSE 76
[2022-02-23 12:57] VITALS: BP 114/73; PULSE 78
== END 2022-02-26 23:59 | disposition home or self-care (01) ==
LOC: CR 12:59
PROVIDERS: Visit Provider Internal Medicine Cardiovascular Disease
DX: R69 Illness, unspecified (principal)

== ENCOUNTER → 2022-03-28 09:48 | Outpatient (BNVA) | payer MEDICARE, SELFPAY | PROVIDERS: Visit Provider Surgery | DX: Z12.11 Encounter for screening for malignant neoplasm of colon (principal); Z86.010 Personal history of colon polyps ==

== ENCOUNTER 2022-03-28 13:02 | Outpatient (RCR) | payer SELFPAY ==
[2022-02-27 00:02] VITALS: BP 114/73; PULSE 78
[2022-03-09 13:16] VITALS: BP 121/70; PULSE 48
[2022-03-14 13:05] VITALS: BP 113/79; PULSE 73
[2022-03-16 13:01] VITALS: BP 121/76; PULSE 79
[2022-03-21 12:57] VITALS: BP 136/73; PULSE 77
[2022-03-23 13:00] VITALS: BP 121/68; PULSE 78
[2022-03-28 13:01] VITALS: BP 132/73; PULSE 79
== END 2022-03-29 23:59 | disposition home or self-care (01) ==
LOC: CR 13:02
PROVIDERS: Visit Provider Internal Medicine Cardiovascular Disease
DX: R69 Illness, unspecified (principal)

== ENCOUNTER 2022-04-07 01:18 | Outpatient (CLI) | payer MEDICARE, SELFPAY ==
[2022-04-07 12:24] LABS: Source Nasal/Nares
[2022-04-07 15:35] LABS: COVID-19 PCR Negative (Negative)
== END 2022-04-07 01:19 | disposition home or self-care (01) ==
LOC: LBO 01:18
PROVIDERS: Visit Provider Surgery
DX: Z01.818 Encounter for other preprocedural examination (principal); Z20.822 Contact with and (suspected) exposure to COVID-19
CPT/HCPCS: 87635

== ENCOUNTER 2022-04-10 06:59 | Day surgery (SDC) | payer MEDICARE, SELFPAY ==
[2022-04-10 07:00] VITALS: BP 123/84; PULSE 86; RESP 18; TEMP 36.3; O2SAT 97
--- NOTE | 2022-04-10 07:01 | W.COLOREPORT ---
Colonoscopy Report Date of procedure: 04/10/22 Pre-op diagnosis general: colon cancer screening Post-op diagnosis procedure note: same Procedure: Aborted Colonoscopy Surgeon: hCa Leiva Anesthesia Type: General:No Airway Pathology: none sent Complications: None Disposition: same day Indications: The patient? is a pleasant 71 -year-old male who is here to discuss another screening colonoscopy. ? He denies any changes in bowel habits, melena, hematochezia, unintentional weight loss or family history of colon cancer. His last colonoscopy was in 2012 and he had 2 Tubular adenomas at that time. The procedure and risks were discussed.? The prep was reviewed in detail.? Risks, benefits and complications have been reviewed. Complications include but are not limited to bleeding, pain, perforation, missed small lesion/polyp, sore throat, aspiration and adverse reaction to the medications. Questions were entertained and answered to their satisfaction and they wished to proceed. No guarantees were given or implied. Prep: Miralax/Dulcolax Findings: Liquid stool with lots of material throughout the colon. Procedure aborted Procedure Description: After informed consent was obtained the patient was taken to the procedure room and placed in a left decubitous position. Monitors were applied and a time out was done. The patients name, date of , procedure, allergies to medications and metal in their body was reviewed. The patient was then sedated. Once sedated and comfortable a rectal exam was done. External exam was normal. Internal exam revealed a normal sphincter tone and no palpable masses. The prostate Pearl smooth. The scope was then introduced and retro-flexed. No internal hemorrhoids, polyps or masses were identified on retro-flexion. There was a lot of liquid and formed stool in the rectum. The scope was slowly advanced. The scope kept getting clogged due to the corn and other vegetable matter. I advanced slowely to the transverse colon. There was liquid stool, formed stool and vegetable matter throughout. The procedure was aborted. T The patient tolerated the procedure well and there were no immediate complications. Follow up: The patient will need to reschedule and we will do a Golytly prep.
--- NOTE | 2022-04-10 07:01 | W.PM.DSUDISC ---
Discharge Plan Disposition Patient Disposition: HOME Condition: Good Discharge Details Reason For Visit: colonoscopy Attending Provider: Cha Leiva Primary Care Provider: Dahlia Wylie Home Meds and New Rx's Prescriptions: Continued Systane Complete 0.6 % drops 1 drp ophthalmic (eye) TID PRN artificial tears ointment Ointment 1 applic ophthalmic (eye) HS latanoprost 0.005 % drops 1 drp ophthalmic (eye) DAILY methylphenidate HCl [Concerta] 54 mg tablet extended release 24hr 54 mg PO QAM Latuda 20 mg tablet 40 mg PO QPM hydroxyzine pamoate 25 mg capsule 25 - 50 mg PO BID PRN nitroglycerin 0.4 mg tablet, sublingual 0.4 mg SL Q5M PRN (Reason: chest pain) Qty: 30 2RF gabapentin [Neurontin] 800 MG tablet 400 mg PO BID Qty: 270 Label Comments: 04/02/13 TAKING 400 MG BID. md Myrbetriq 50 MG tablet extended release 24 hr 50 mg PO DAILY Qty: 90 4RF acetaminophen 500 mg tablet 500 mg PO Q6H PRN diclofenac sodium 1 % gel 2 g topical QID PRN (Reason: neck strain) Qty: 50 4RF Rx Instructions: apply to right neck atorvastatin 40 mg tablet 40 mg PO DAILY Qty: 90 3RF ibuprofen 400 mg tablet 400 mg PO PRN tolterodine [Detrol LA] 4 mg capsule,extended release 24hr 4 mg PO DAILY Qty: 90 3RF bisoprolol fumarate 5 mg tablet 5 mg PO DAILY Qty: 90 3RF riboflavin (vitamin B2) 100 mg tablet 100 mg PO BID Qty: 60 12RF aspirin 81 mg tablet,delayed release (DR/EC) 81 mg PO DAILY Qty: 30 12RF cholecalciferol (vitamin D3) 50 mcg (2,000 unit) capsule 100 mcg PO DAILY Qty: 60 12RF magnesium oxide 500 mg capsule 500 mg PO DAILY Qty: 30 12RF pantoprazole 40 mg tablet,delayed release (DR/EC) 40 mg PO DAILY Qty: 30 11RF calcium carbonate 500 mg calcium (1,250 mg) Tablet,Chewable 2 mg PO PRN PRN Discontinued bisacodyl [Dulcolax (bisacodyl)] 5 mg tablet,delayed release (DR/EC) 5 mg PO ONCE Qty: 4 0RF Rx Instructions: Take according to provider's instructions for colonoscopy prep. polyethylene glycol 3350 17 gram/dose powder 17 g PO ONCE Qty: 238 0RF Rx Instructions: To be taken as directed by prescriber's office for colonoscopy prep. Discharge Instructions Additional Instructions: Findings: Unfortunately your intestine was not clean. There was a large amount of liquid and solid stool as well as a lot of vegetables which kept clogging the scope so we had to stop the procedure Follow up: My office will call you to reschedule. We will have you do a different prep Please call if you develop: fevers >101.5 Nausea or Vomiting Abdominal pain that is not transient Rectal bleeding that is more then a tbsp A hard abdomen and inability to pass gas DAY SURGERY UNIT POST ENDOSCOPY INSTRUCTIONS Instructions for everyone who is given Anesthesia: For your safety, please do the following for the next 24 Hours: a. Do not drive or operate dangerous equipment b. Do not drink alcohol beverages or use any recreational drugs for the first 24 hours or while taking pain medications. The medications in your body may have a reaction that can be dangerous. c. Do not make any important decisions or sign any important papers 1. Generally there are no restrictions on your activity after a day or so has gone by, but you may feel a bit fatigued for a few days. 2. After you arrive home you may have a light meal and return to a normal diet as you can tolerate it without feeling sick to your stomach. 3. After surgery, you may feel pain or discomfort. This should be only transient, but if it persists please contact your doctor. 4. If there are any questions regarding the findings of your procedure, please feel free to contact your doctor. 6. If you are unable to contact your doctor with a problem, contact the hospital at [phone]. 7. Continue all your regular medications unless directed otherwise. I understand the above instructions and have no questions. Signature of Patient or Responsible Adult Escort Date/Time Name of Responsible Adult Escort Signature of Nurse Date/Time Activity:: Activity as Tolerated Diet:: As Tolerated Discharge Orders Discharge Orders: Discharge Order (Routine); Ordered 04/10/22 Ordered By: Cha Leiva
[2022-04-10] MEDS: Lactated Ringers 1,000 ML 80 ML IV (07:33)
--- NOTE | 2022-04-10 08:25 | W.ANESPOSTOP ---
Postoperative Evaluation Date, Time and Location Date Performed: 04/10/22 Time Performed: 08:25 Patient Location: Day Surgery Unit Vital Signs Most Recent Imported Vital Signs: Most Recent Vital Signs Temp Pulse Resp BP Pulse Ox 36.3 C L 86 18 123/84 97 04/10/22 07:00 04/10/22 07:00 04/10/22 07:00 04/10/22 07:00 04/10/22 07:00 Most Recent Manually Entered Vital Signs: Adult Blood Pressure: 125/78 Heart Rate: 94 Respirations: 14 Oxygen Saturation (%): 95 Temperature (C): 36.3 C Pain Score (0-10 Scale): 0 Assessment Mental Status: Awake (Alert & Oriented to Patient Baseline) Airway and Respiratory Function: Patent airway with normal (patient baseline) respiratory exam Cardiovascular Function: Hemodynamically Stable Hydration Status: Adequately Hydrated Nausea & Vomiting: No Nausea or Vomiting Pain: Pt. Denies Any Pain Peripheral Nerve Block: Patient did not receive a nerve block
[2022-04-10 08:27] VITALS: BP 125/78; PULSE 94; RESP 14; TEMPC 36.3; O2SAT 95
--- NOTE | 2022-04-10 08:29 | W.ANESPRE ---
General Info Date of Service Date Performed: 04/10/22 Height: 5 ft 10 in Weight: 106.3 kg Body Mass Index (BMI): 33.6 Surgical Procedure: Operation Date: 04/10/22 08:35 Proposed Procedure Side Surgeon reyna Leiva MD Meds Allergies and Home Medications Allergies Allergy/AdvReac Type Severity Reaction Status Date / Time Penicillins Allergy Unknown Verified 04/10/22 07:15 metoprolol AdvReac fatigue Verified 04/10/22 07:15 Home Medication Medication Instructions Recorded gabapentin 800 mg tablet 400 mg PO BID #270 tab-caps 01/28/13 (Neurontin) mirabegron 50 mg tablet,extended 50 mg PO DAILY #90 tab-caps 09/14/17 release 24 hr (Myrbetriq) methylphenidate HCl 54 mg 54 mg PO QAM 06/10/19 tablet,extended release 24 hr (Concerta) acetaminophen 500 mg tablet 500 mg PO Q6H PRN 10/02/19 lurasidone 20 mg tablet (Latuda) 40 mg PO QPM 11/27/19 hydroxyzine pamoate 25 mg capsule 25 - 50 mg PO BID PRN 10/21/20 nitroglycerin 0.4 mg sublingual 0.4 mg sublingual Q5M PRN chest 10/21/20 tablet pain #30 tabs calcium carbonate 500 mg calcium 2 mg PO PRN PRN 02/19/21 (1,250 mg) chewable tablet diclofenac sodium 1 % topical gel 2 g topical QID PRN neck strain 05/23/21 #50 grams artificial tears ointment 1 applic ophthalmic (eye) HS 07/19/21 latanoprost 0.005 % eye drops 1 drp ophthalmic (eye) DAILY 07/19/21 propylene glycol 0.6 % eye drops 1 drp ophthalmic (eye) TID PRN 07/19/21 (Systane Complete) atorvastatin 40 mg tablet 40 mg PO DAILY #90 tab-caps 08/01/21 ibuprofen 400 mg tablet 400 mg PO PRN 11/15/21 bisoprolol fumarate 5 mg tablet 5 mg PO DAILY #90 tabs 01/13/22 tolterodine 4 mg capsule,extended 4 mg PO DAILY #90 caps 01/13/22 release 24 hr (Detrol LA) aspirin 81 mg tablet,delayed 81 mg PO DAILY #30 tab-caps 02/13/22 release cholecalciferol (vitamin D3) 50 100 mcg PO DAILY #60 caps 02/13/22 mcg (2,000 unit) capsule magnesium oxide 500 mg capsule 500 mg PO DAILY #30 caps 02/13/22 riboflavin (vitamin B2) 100 mg 100 mg PO BID #60 tabs 02/13/22 tablet pantoprazole 40 mg tablet,delayed 40 mg PO DAILY #30 tab-caps 03/06/22 release bisacodyl 5 mg tablet,delayed 5 mg PO ONCE #4 tabs 03/28/22 release (Dulcolax (bisacodyl)) polyethylene glycol 3350 17 17 g PO ONCE #238 grams 03/28/22 gram/dose oral powder Current Visit Medications: Current Medications Generic Name Dose Route Start Last Admin Trade Name Freq PRN Reason Stop Dose Admin Hyoscyamine Sulfate 0.125 mg 04/10/22 07:02 Hyoscyamine 0.125 Mg Sl/Oral/Chew SL DIRECTED PRN Ringer's Solution 1,000 mls @ 80 mls/hr 04/10/22 06:00 04/10/22 07:33 IV 05/07/22 23:59 80 mls/hr INFUSION TA Administration IV Miscellaneous Supplies 1 each 04/10/22 06:00 Iv Access IV 05/07/22 23:59 DIRECTED TA Ondansetron HCl 4 mg 04/10/22 07:02 Ondansetron 4 Mg/2 Ml Vial IVP Q4H PRN PRN Nausea / Vomiting Sodium Chloride 0 ml 04/10/22 06:00 Normal Saline Flush 10 Ml Syr IV 05/07/22 23:59 PRN PRN Sodium Chloride 0 ml 04/10/22 06:00 Normal Saline 10 Ml Vial IJ 05/07/22 23:59 DIRECTED PRN Sterile Water 0 ml 04/10/22 06:00 Water,Injection,Sterile 10 Ml Vial IJ 05/07/22 23:59 DIRECTED PRN PFSH Active Problems Active Problems: Problem Status Onset Code Coronary artery disease I25.10 Cough R05.9 Chest pressure R07.89 Cervicalgia M54.2 Dry eye syndrome of both eyes H04.123 Vitamin D deficiency E55.9 Nasal turbinate hypertrophy J34.3 Deviated nasal septum J34.2 Dental decay K02.9 Chronic daily headache R51 Post-nasal drip R09.82 Chronic rhinitis J31.0 Chronic intractable headache R51 Sinusitis J32.9 Urgency incontinence 01/12/[address] elevation myocardial infarction involving right coronary artery 11/15/17 I21.11 Rosacea L71.9 Right anterior shoulder pain 10/25/16 M25.511 Polyp of colon 06/28/07 K63.5 Lung mass 07/26/15 R91.8 Left-sided low back pain without sciatica 09/27/15 M54.5 Knee pain M25.569 Increased BMI (body mass index) 08/13/17 R63.8 GERD (gastroesophageal reflux disease) 03/11/15 K21.9 Elevated PSA, less than 10 ng/ml 08/13/17 R97.20 Degeneration of cervical intervertebral disc M50.30 Chronic fatigue 07/29/15 R53.82 Cervical muscle pain 05/10/16 M54.2 Bladder outlet obstruction 03/26/18 N32.0 Arthritis 01/26/16 M19.90 Osteoarthritis of right knee 09/01/13 M17.9 Status post total knee replacement using cement 09/01/13 Z96.659 Sleep apnea G47.30 Anxiety and depression F41.8 Medical History Medical History Comments:: Pt. states lung mass was in a report he saw a long time ago, but nobody ever told him it was an issue, and the chest pressure was an acute occurence, and no longer has issues. Surgical History Surgical History Arthroplasty of knee (~2007) 2008 RIGHT, DR. ESCAMILLA 2013 Colonoscopy - [facility] [place] (04/07/13) DR. Scar ALLISON; 2 TUBULAR ADENOMAS Tobacco Smoking/Tobacco Use Status: Never Passive smoking exposure: Yes Second hand exposure: Yes Alcohol Alcohol Intake: current Alcohol intake frequency: holidays/special occasions only Alcohol type: hard liquor Details: one drink a year. Substance Use Substance use: Never Substance use type: does not use Vital Signs and Lab Results Vital Signs Most Recent Vital Signs in EMR: Most Recent Vital Signs Temp Pulse Resp BP Pulse Ox 36.3 C L 86 18 123/84 97 04/10/22 07:00 04/10/22 07:00 04/10/22 07:00 04/10/22 07:00 04/10/22 07:00 Lab Results Blood Type / Crossmatch: No Data to Display Complete Blood Count: No Data to Display Complete Metabolic Panel: No Data to Display Liver Function Panel: No Data to Display Coagulation Panel: No Data to Display Cardiac Panel: No Data to Display Arterial Blood Gas: No Data to Display Venous Blood Gas: No Data to Display Pancreas Panel: No Data to Display Thyroid Panel: No Data to Display Infectious Disease: Coronavirus (COVID-19)(PCR) Negative (Negative) 04/07/22 09:25 Coronavirus 2019 Source Nasal/Nares 04/07/22 09:25 Blood Cultures: No Data to Display Toxicology Panel: No Data to Display Anesthesia Assessment and Plan Anesthesia History Personal History: No History of Anesthesia Complications Family History: No Family History of Anesthesia Complications Exercise Tolerance Exercise Tolerance: Metabolic Equivalents>4 Pertinent Negatives Pertinent Negatives: No Symptoms of GERD, No Major Cardiovascular Symptoms or Complaints (2012 DC no angina since), No Major Pulmonary Symptoms or Complaints (ELIAS wears CPAP every night ) and No History of CVA/TIA Cardiac & Pulmonary Exam Cardiac Exam: Normal S1/S2 Heart Sounds Pulmonary Exam: Clear Bilateral Breath Sounds Implantable Cardiac Device Does patient have a Pacemaker or an ICD?: No Airway Exam Known Difficult Airway: No Mallampati Class: 4 Mouth Opening: Narrow (< 3cm) Thyromental Distance: Less than 3 cm Neck Range of Motion: Limited ROM Neck Circumference: Thick Teeth Condition: Generalized Poor Dentition Airway Comments: All teeth broken or missing ASA Classification ASA Score: ASA 3 Emergency Case?: No NPO Status NPO Status: NPO Clears >2 hours, Solids >8 hours Anesthesia Plan Resuscitation Status: Full Code Anesthesia Technique: General Anesthesia Airway Planned: Natural Airway Monitors Used: Standard Monitors
[2022-04-10 08:36] VITALS: BMI 33.6
[2022-04-10 09:25] VITALS: BP 110/72; PULSE 62; RESP 16; TEMP 36.4; O2SAT 96
--- NOTE | 2022-04-10 09:25 | W.ANESPOSTOP ---
Postoperative Evaluation Date, Time and Location Date Performed: 04/10/22 Time Performed: : Patient Location: Day Surgery Unit Vital Signs Most Recent Imported Vital Signs: Most Recent Vital Signs Temp Pulse Resp BP Pulse Ox 36.3 C L 86 18 123/84 97 04/10/22 07:00 04/10/22 07:00 04/10/22 07:00 04/10/22 07:00 04/10/22 07:00 Most Recent Vital Signs Temp Pulse Resp BP Pulse Ox 36.3 C L 86 18 123/84 97 04/10/22 07:00 04/10/22 07:00 04/10/22 07:00 04/10/22 07:00 04/10/22 07:00 Most Recent Manually Entered Vital Signs: Adult Blood Pressure: 110/72 Heart Rate: 62 Respirations: 12 Oxygen Saturation (%): 99 Temperature (C): 36.3 C Pain Score (0-10 Scale): 0 Assessment Mental Status: Awake (Alert & Oriented to Patient Baseline) Airway and Respiratory Function: Patent airway with normal (patient baseline) respiratory exam Cardiovascular Function: Hemodynamically Stable Hydration Status: Adequately Hydrated Nausea & Vomiting: No Nausea or Vomiting Pain: Pt. Denies Any Pain Peripheral Nerve Block: Patient did not receive a nerve block
[2022-04-10 09:27] VITALS: BP 110/72; PULSE 62; RESP 12; TEMPC 36.3; O2SAT 99
[2022-04-10 09:51] VITALS: BP 115/75; PULSE 65; RESP 16; TEMP 36.5; O2SAT 99
== END 2022-04-10 10:39 | disposition home or self-care (01) ==
PROVIDERS: Visit Provider Surgery
PROC: 0DJD8ZZ Inspection of Lower Intestinal Tract, Via Natural or Artificial Opening Endoscopic (ICD-10-PCS; CPT 45378; principal; 2022-04-10 08:30)
DX: Z12.11 Encounter for screening for malignant neoplasm of colon (principal); K21.9 Gastro-esophageal reflux disease without esophagitis; I25.10 Atherosclerotic heart disease of native coronary artery without angina pectoris
CPT/HCPCS: G0121

== ENCOUNTER 2022-04-25 13:04 | Outpatient (RCR) | payer SELFPAY ==
[2022-03-30 00:02] VITALS: BP 132/73; PULSE 79
[2022-03-30 13:01] VITALS: BP 136/74; PULSE 76
[2022-04-06 13:05] VITALS: BP 122/77; PULSE 75
[2022-04-18 13:04] VITALS: BP 119/65; PULSE 73
[2022-04-20 13:00] VITALS: BP 139/74; PULSE 75
[2022-04-25 13:03] VITALS: BP 134/73; PULSE 81
== END 2022-04-28 23:59 | disposition home or self-care (01) ==
LOC: CR 13:04
PROVIDERS: Visit Provider Internal Medicine Cardiovascular Disease
DX: R69 Illness, unspecified (principal)

== ENCOUNTER 2022-05-11 13:03 | Outpatient (RCR) | payer SELFPAY ==
[2022-04-29 00:04] VITALS: BP 134/73; PULSE 81
[2022-05-04 13:05] VITALS: BP 130/73; PULSE 79
[2022-05-09 13:03] VITALS: BP 119/69; PULSE 78
[2022-05-11 12:57] VITALS: BP 117/67; PULSE 78
== END 2022-05-29 23:59 | disposition home or self-care (01) ==
LOC: CR 13:03
PROVIDERS: Visit Provider Internal Medicine Cardiovascular Disease
DX: R69 Illness, unspecified (principal)

== ENCOUNTER → 2022-05-19 10:25 | Outpatient (BNVA) | payer MEDICARE, SELFPAY | PROVIDERS: Visit Provider Surgery | DX: Z12.11 Encounter for screening for malignant neoplasm of colon (principal); Z86.010 Personal history of colon polyps; I25.2 Old myocardial infarction ==

== ENCOUNTER 2022-05-24 07:37 | Day surgery (SDC) | payer MEDICARE, SELFPAY ==
--- NOTE | 2022-05-24 06:22 | COLE_ITS ---
Date of service: 05/24/22 Time of Service: 09:05 Colonoscopy Report Date of procedure: 05/24/22 Pre-op diagnosis general: screening and hx of polyps Post-op diagnosis procedure note: other (polyps) Procedure: Colonoscopy with polypectomy Surgeon: Cha Leiva Anesthesia Type: General:No Airway Estimated blood loss (mL): 2 Pathology: other (transverse colon polyp, descending colon polyp) Complications: None Disposition: same day Indications: The patient is a pleasant 71 -year-old male who is here to discuss another screening colonoscopy. He denies any changes in bowel habits, melena, hematochezia, unintentional weight loss or family history of colon cancer. His last colonoscopy was in 2012 and he had 2 Tubular adenomas at that time. The procedure and risks were discussed. The prep was reviewed in detail. Risks, benefits and complications have been reviewed. Complications include but are not limited to bleeding, pain, perforation, missed small lesion/polyp, sore throat, aspiration and adverse reaction to the medications. Questions were entertained and answered to their satisfaction and they wished to proceed. No guarantees were given or implied. Prep: Lyssa Procedure Start Time: :05 Procedure End Time: 09:46 Retraction Time: 22 minutes Findings: 6 polyps Procedure Description: After informed consent was obtained the patient was taken to the procedure room and placed in a left decubitous position. Monitors were applied and a time out was done. The patients name, date of , procedure, allergies to medications and metal in their body was reviewed. The patient was then sedated. Once sedated and comfortable a rectal exam was done. External exam was normal. Internal exam revealed a normal sphincter tone and no palpable masses. The prostate felt smooth. The scope was then introduced and retro-flexed. No internal hemorrhoids, polyps or masses were identified on retro-flexion. The scope was then advanced to the cecum with difficulty. The ileocecal valve and appendiceal orifice were i dentified. The prep was adequate. The scope was then slowly retracted over 22 minutes back into the rectum. Polyps were removed with cold forceps in the transverse colon x2 and descending colon x3 and with a cold snare in the descending colon. There was no diverticulosis noted. The scope was removed and the patient was woken up and taken back to Same day surgery in stable condition. The patient tolerated the procedure well and there were no immediate complications.
--- NOTE | 2022-05-24 06:24 | W.PM.DSUDISC ---
Date of service: 05/24/22 Time of Service: 10:24 Discharge Plan Disposition Patient Disposition: HOME Condition: Good Discharge Details Reason For Visit: colonoscopy Attending Provider: Cha Leiva Primary Care Provider: None,None Home Meds and New Rx's Prescriptions: Continued Systane Complete 0.6 % drops 1 drp ophthalmic (eye) TID PRN artificial tears ointment Ointment 1 applic ophthalmic (eye) HS latanoprost 0.005 % drops 1 drp ophthalmic (eye) DAILY methylphenidate HCl [Concerta] 54 mg tablet extended release 24hr 54 mg PO QAM Latuda 20 mg tablet 40 mg PO QPM nitroglycerin 0.4 mg tablet, sublingual 0.4 mg SL Q5M PRN (Reason: chest pain) Qty: 30 2RF gabapentin [Neurontin] 800 MG tablet 400 mg PO BID Qty: 270 Label Comments: 04/02/13 TAKING 400 MG BID. md Myrbetriq 50 MG tablet extended release 24 hr 50 mg PO DAILY Qty: 90 4RF acetaminophen 500 mg tablet 500 mg PO Q6H PRN diclofenac sodium 1 % gel 2 g topical QID PRN (Reason: neck strain) Qty: 50 4RF Rx Instructions: apply to right neck atorvastatin 40 mg tablet 40 mg PO DAILY Qty: 90 3RF ibuprofen 400 mg tablet 400 mg PO PRN tolterodine [Detrol LA] 4 mg capsule,extended release 24hr 4 mg PO DAILY Qty: 90 3RF bisoprolol fumarate 5 mg tablet 5 mg PO DAILY Qty: 90 3RF riboflavin (vitamin B2) 100 mg tablet 100 mg PO BID Qty: 60 12RF aspirin 81 mg tablet,delayed release (DR/EC) 81 mg PO DAILY Qty: 30 12RF cholecalciferol (vitamin D3) 50 mcg (2,000 unit) capsule 100 mcg PO DAILY Qty: 60 12RF magnesium oxide 500 mg capsule 500 mg PO DAILY Qty: 30 12RF pantoprazole 40 mg tablet,delayed release (DR/EC) 40 mg PO DAILY Qty: 30 11RF calcium carbonate 500 mg calcium (1,250 mg) Tablet,Chewable 2 mg PO PRN PRN Discontinued peg 3350-electrolytes [Golytely] 236-22.74-6.74 -5.86 gram recon soln 240 ml PO Q10M Qty: 4000 0RF Rx Instructions: until fecal effluent is clear Discharge Instructions Instructions: Colorectal Polyps (DC) Additional Instructions: Findings: 6 polyps Follow up: 3-5 years Please call if you develop: fevers >101.5 Nausea or Vomiting Abdominal pain that is not transient Rectal bleeding that is more then a tbsp A hard abdomen and inability to pass gas DAY SURGERY UNIT POST ENDOSCOPY INSTRUCTIONS Instructions for everyone who is given Anesthesia: For your safety, please do the following for the next 24 Hours: a. Do not drive or operate dangerous equipment b. Do not drink alcohol beverages or use any recreational drugs for the first 24 hours or while taking pain medications. The medications in your body may have a reaction that can be dangerous. c. Do not make any important decisions or sign any important papers 1. Generally there are no restrictions on your activity after a day or so has gone by, but you may feel a bit fatigued for a few days. 2. After you arrive home you may have a light meal and return to a normal diet as you can tolerate it without feeling sick to your stomach. 3. After surgery, you may feel pain or discomfort. This should be only transient, but if it persists please contact your doctor. 4. If there are any questions regarding the findings of your procedure, please feel free to contact your doctor. 6. If you are unable to contact your doctor with a problem, contact the hospital at [phone]. 7. Continue all your regular medications unless directed otherwise. I understand the above instructions and have no questions. Signature of Patient or Responsible Adult Escort Date/Time Name of Responsible Adult Escort Signature of Nurse Date/Time Activity:: Activity as Tolerated Diet:: As Tolerated Discharge Orders Discharge Orders: Discharge Order (Routine); Ordered 05/24/22 Ordered By: Cha Leiva
[2022-05-24 08:13] VITALS: BP 136/89; PULSE 112; RESP 18; TEMP 36.7; O2SAT 97
--- NOTE | 2022-05-24 08:28 | ANES.PREOP_ITS ---
General Info Date of Service Date Performed: 05/24/22 Height: 5 ft 10 in Weight: 108.8 kg Body Mass Index (BMI): 34.4 Surgical Procedure: Operation Date: 05/24/22 09:05 Proposed Procedure Side Surgeon reyna Leiva MD Meds Allergies and Home Medications Allergies Allergy/AdvReac Type Severity Reaction Status Date / Time Penicillins Allergy Unknown Unknown Verified 05/24/22 08:21 metoprolol AdvReac fatigue Verified 05/24/22 08:22 Home Medication Medication Instructions Recorded gabapentin 800 mg tablet 400 mg PO BID #270 tab-caps 01/28/13 (Neurontin) mirabegron 50 mg tablet,extended 50 mg PO DAILY #90 tab-caps 09/14/17 release 24 hr (Myrbetriq) methylphenidate HCl 54 mg 54 mg PO QAM 06/10/19 tablet,extended release 24 hr (Concerta) acetaminophen 500 mg tablet 500 mg PO Q6H PRN 10/02/19 lurasidone 20 mg tablet (Latuda) 40 mg PO QPM 11/27/19 nitroglycerin 0.4 mg sublingual 0.4 mg sublingual Q5M PRN chest 10/21/20 tablet pain #30 tabs calcium carbonate 500 mg calcium 2 mg PO PRN PRN 02/19/21 (1,250 mg) chewable tablet diclofenac sodium 1 % topical gel 2 g topical QID PRN neck strain 05/23/21 #50 grams artificial tears ointment 1 applic ophthalmic (eye) HS 07/19/21 latanoprost 0.005 % eye drops 1 drp ophthalmic (eye) DAILY 07/19/21 propylene glycol 0.6 % eye drops 1 drp ophthalmic (eye) TID PRN 07/19/21 (Systane Complete) atorvastatin 40 mg tablet 40 mg PO DAILY #90 tab-caps 08/01/21 ibuprofen 400 mg tablet 400 mg PO PRN 11/15/21 bisoprolol fumarate 5 mg tablet 5 mg PO DAILY #90 tabs 01/13/22 tolterodine 4 mg capsule,extended 4 mg PO DAILY #90 caps 01/13/22 release 24 hr (Detrol LA) aspirin 81 mg tablet,delayed 81 mg PO DAILY #30 tab-caps 02/13/22 release cholecalciferol (vitamin D3) 50 100 mcg PO DAILY #60 caps 02/13/22 mcg (2,000 unit) capsule magnesium oxide 500 mg capsule 500 mg PO DAILY #30 caps 02/13/22 riboflavin (vitamin B2) 100 mg 100 mg PO BID #60 tabs 02/13/22 tablet pantoprazole 40 mg tablet,delayed 40 mg PO DAILY #30 tab-caps 03/06/22 release peg 3350-electrolytes 236 240 ml PO Q10M #4,000 mL 05/19/22 gram-22.74 gram-6.74 gram-5.86 gram solution (Golytely) Current Visit Medications: Current Medications Generic Name Dose Route Start Last Admin Trade Name Freq PRN Reason Stop Dose Admin Hyoscyamine Sulfate 0.125 mg 05/24/22 06:24 Hyoscyamine 0.125 Mg Sl/Oral/Chew SL DIRECTED PRN Ringer's Solution 1,000 mls @ 80 mls/hr 05/24/22 06:00 IV 06/22/22 23:59 [facility] IV Miscellaneous Supplies 1 each 05/24/22 06:00 Iv Access IV 06/22/22 23:59 [facility] Ondansetron HCl 4 mg 05/24/22 06:24 Ondansetron 4 Mg/2 Ml Vial IVP Q4H PRN PRN Nausea / Vomiting Sodium Chloride 0 ml 05/24/22 06:00 Normal Saline Flush 10 Ml Syr IV 06/22/22 23:59 PRN PRN Sodium Chloride 0 ml 05/24/22 06:00 Normal Saline 10 Ml Vial IJ 06/22/22 23:59 DIRECTED PRN Sterile Water 0 ml 05/24/22 06:00 Water,Injection,Sterile 10 Ml Vial IJ 06/22/22 23:59 DIRECTED PRN PFSH Active Problems Active Problems: Problem Status Onset Code Coronary artery disease I25.10 Cough R05.9 Chest pressure R07.89 Cervicalgia M54.2 Dry eye syndrome of both eyes H04.123 Vitamin D deficiency E55.9 Nasal turbinate hypertrophy J34.3 Deviated nasal septum J34.2 Dental decay K02.9 Chronic daily headache R51 Post-nasal drip R09.82 Chronic rhinitis J31.0 Chronic intractable headache R51 Sinusitis J32.9 Urgency incontinence 01/12/[address] elevation myocardial infarction involving right coronary artery 11/15/17 I21.11 Rosacea L71.9 Right anterior shoulder pain 10/25/16 M25.511 Polyp of colon 06/28/07 K63.5 Lung mass 07/26/15 R91.8 Left-sided low back pain without sciatica 09/27/15 M54.5 Knee pain M25.569 Increased BMI (body mass index) 08/13/17 R63.8 GERD (gastroesophageal reflux disease) 03/11/15 K21.9 Elevated PSA, less than 10 ng/ml 08/13/17 R97.20 Degeneration of cervical intervertebral disc M50.30 Chronic fatigue 07/29/15 R53.82 Cervical muscle pain 05/10/16 M54.2 Bladder outlet obstruction 03/26/18 N32.0 Arthritis 01/26/16 M19.90 Osteoarthritis of right knee 09/01/13 M17.9 Status post total knee replacement using cement 09/01/13 Z96.659 Sleep apnea G47.30 Anxiety and depression F41.8 Medical History Medical History Comments:: Pt. states lung mass was in a report he saw a long time ago, but nobody ever told him it was an issue, and the chest pressure was an acute occurence, and no longer has issues. Surgical History Surgical History Arthroplasty of knee (~2007) 2007 RIGHT, DR. ESCAMILLA 2013 Colonoscopy - MAC (04/07/13) DR. Scar ALLISON; 2 TUBULAR ADENOMAS Tobacco Smoking/Tobacco Use Status: Never Passive smoking exposure: Yes Second hand exposure: Yes Alcohol Alcohol Intake: current Alcohol intake frequency: holidays/special occasions only Alcohol type: hard liquor Details: one drink a year. Substance Use Substance use: Never Substance use type: does not use Vital Signs and Lab Results Vital Signs Most Recent Vital Signs in EMR: Most Recent Vital Signs Temp Pulse Resp BP Pulse Ox 36.7 C 112 H 18 136/89 97 05/24/22 08:13 05/24/22 08:13 05/24/22 08:13 05/24/22 08:13 05/24/22 08:13 Lab Results Blood Type / Crossmatch: No Data to Display Complete Blood Count: No Data to Display Complete Metabolic Panel: No Data to Display Liver Function Panel: No Data to Display Coagulation Panel: No Data to Display Cardiac Panel: No Data to Display Arterial Blood Gas: No Data to Display Venous Blood Gas: No Data to Display Pancreas Panel: No Data to Display Thyroid Panel: No Data to Display Infectious Disease: No Data to Display Blood Cultures: No Data to Display Toxicology Panel: No Data to Display Imaging and Studies Imaging and Studies Study information below may be from another EMR and interpreted by another provider. Please see original notes in EMR for more complete details. EKG Summary: DATE/TIME OF SERVICE: 07/09/21 1014 : 1950ERFORMING LOCATION: ER APPROVED REPORT Exam: Resting ECG Reason for Exam: chest pain Patient Location: E HR:73 bpm ECG Measurements Heart Rate 73 AXIS LA 150 P 53 QRSd 89 QRS 63 QT 389 T14 QTc 431 Conclusion Sinus rhythm...normal P axis, V-rate 60- 99 Posterior infarct, old...prom R T, V1-V3 or Q >40mS, V7-V9 Stress Test Summary: Stress ECG Conclusion 1. Resting electrocardiogram showed rightward axis, early R wave transition 2. The patient exercised on Dre protocol and completed a workload of 5.67 METS, limited by dyspnea 3. Rapid increase in heart rate with exercise, possibly due to withholding of his beta-davy. Peak heart rate was greater than 100% of predicted for age 4. Mildly hypertensive blood pressure response to exercise 5. Electrocardiographically there was no evidence of myocardial ischemia 6. Sporadic atrial premature beats were seen Culver Treadmill Score is 3.6 which is Moderate risk. Echocardiogram Summary: Date of study: 11/07/2017 Transthoracic Echocardiography M-mode, complete 2D, complete spectral Doppler, and color Doppler *STUDY CONCLUSIONS* Summary: 1. Left ventricle: The cavity size was normal. Wall thickness was increased in a pattern of moderate LVH. Systolic function was at the lower limits of normal. The estimated ejection fraction was 50-55%. Hypokinesis of the mid-apicalinferolateral, inferior, and inferoseptal myocardium. 2. Right ventricle: The cavity size was normal. Systolic function was normal. 3. Inferior vena cava: The vessel was patent and normal in size. The respirophasic diameter changes were in the normal range (greater than or equal to 50%), consistent with normal central venous pressure. Anesthesia Assessment and Plan Anesthesia History Personal History: No History of Anesthesia Complications Family History: No Family History of Anesthesia Complications Exercise Tolerance Exercise Tolerance: Metabolic Equivalents>4 Pertinent Negatives Pertinent Negatives: No Symptoms of GERD and No Major Pulmonary Symptoms or Complaints Cardiac & Pulmonary Exam Cardiac Exam: Normal S1/S2 Heart Sounds Pulmonary Exam: Clear Bilateral Breath Sounds Implantable Cardiac Device Does patient have a Pacemaker or an ICD?: No Airway Exam Known Difficult Airway: No Mallampati Class: 4 Mouth Opening: Narrow (< 3cm) Thyromental Distance: Less than 3 cm Neck Range of Motion: Limited ROM Neck Circumference: Thick Teeth Condition: Generalized Poor Dentition Airway Comments: All teeth broken or missing ASA Classification ASA Score: ASA 3 Emergency Case?: No NPO Status NPO Status: NPO Clears >2 hours, Solids >8 hours Anesthesia Plan Resuscitation Status: Full Code Anesthesia Technique: General Anesthesia Airway Planned: Natural Airway Monitors Used: Standard Monitors
[2022-05-24] MEDS: Lactated Ringers 1,000 ML 80 ML IV (08:45)
[2022-05-24 08:50] VITALS: BMI 34.4
--- NOTE | 2022-05-24 09:08 | BOWEL_PTH ---
PATIENT: Felton Avila JR LOC: [facility] U#:[id number] AGE/SX: 71/M ROOM: RE05/24/[address]: Cha Leiva MD : 1950 BED: DIS: 05/24/2022 SPEC #: [id number] RECD: 05/24/22 13:07 STATUS: MAUREEN RESherie #: [id number] CHAVO: 05/24/22 09:[address]: Cha Leiva DEPT: Surgical Specimen RECD BY: Sarah Ramirez ENTERED: 05/24/22 13:08 SP TYPE: Bowel OTHR DR: None Tissues: 1 - BIOPSY BOWEL 2 - BIOPSY BOWEL Procedures: GROSS AND MICRO LEVEL 4 Comments: [id number]
[2022-05-24 09:53] VITALS: BP 120/72; PULSE 103; RESP 16; TEMP 36.6; O2SAT 96
--- NOTE | 2022-05-24 10:15 | W.ANESPOSTOP ---
Postoperative Evaluation Date, Time and Location Date Performed: 05/24/22 Time Performed: 10:16 Patient Location: Day Surgery Unit Vital Signs Most Recent Imported Vital Signs: Most Recent Vital Signs Temp Pulse Resp BP Pulse Ox 36.6 C 103 H 16 120/72 96 05/24/22 09:53 05/24/22 09:53 05/24/22 09:53 05/24/22 09:53 05/24/22 09:53 Pain Score Most Recent Pain Score: Most Recent Pain Score Pain Level 0 05/24/22 09:53 Assessment Mental Status: Awake (Alert & Oriented to Patient Baseline) Airway and Respiratory Function: Patent airway with normal (patient baseline) respiratory exam Cardiovascular Function: Hemodynamically Stable Hydration Status: Adequately Hydrated Nausea & Vomiting: No Nausea or Vomiting Pain: Pt. Denies Any Pain Peripheral Nerve Block: Patient did not receive a nerve block
[2022-05-24 10:16] VITALS: BP 128/76; PULSE 98; RESP 18; TEMP 36.5; O2SAT 96
== END 2022-05-24 10:57 | disposition home or self-care (01) ==
PROVIDERS: Visit Provider Surgery
PROC: 0DJD8ZZ Inspection of Lower Intestinal Tract, Via Natural or Artificial Opening Endoscopic (ICD-10-PCS; CPT 45378; principal; 2022-05-24 09:00)
DX: Z12.11 Encounter for screening for malignant neoplasm of colon (principal); K63.5 Polyp of colon; Z86.010 Personal history of colon polyps
CPT/HCPCS: 45385; 45380; 88305

== ENCOUNTER 2022-06-20 13:11 | Outpatient (RCR) | payer SELFPAY ==
[2022-06-01 13:06] VITALS: BP 98/61; PULSE 69
[2022-06-06 14:21] VITALS: BP 125/68; PULSE 83
[2022-06-08 13:05] VITALS: BP 126/67; PULSE 81
[2022-06-15 13:08] VITALS: BP 135/71; PULSE 81
[2022-06-20 13:15] VITALS: BP 117/65; PULSE 74
== END 2022-06-28 23:59 | disposition home or self-care (01) ==
LOC: CR 13:11
PROVIDERS: PCP Nurse Practitioner Family; Visit Provider Internal Medicine Cardiovascular Disease
DX: R69 Illness, unspecified (principal)

== ENCOUNTER 2022-07-20 12:57 | Outpatient (RCR) | payer SELFPAY ==
[2022-06-29 00:12] VITALS: BP 117/65; PULSE 74
[2022-06-29 13:30] VITALS: BP 112/64; PULSE 75
[2022-07-06 13:00] VITALS: BP 125/71; PULSE 84
[2022-07-11 13:02] VITALS: BP 126/72; PULSE 82
[2022-07-13 13:05] VITALS: BP 120/68; PULSE 82
[2022-07-18 13:09] VITALS: BP 114/69; PULSE 79
[2022-07-20 13:27] VITALS: BP 127/70; PULSE 82
== END 2022-07-29 23:59 | disposition home or self-care (01) ==
LOC: CR 12:57
PROVIDERS: PCP Nurse Practitioner Family; Visit Provider Internal Medicine Cardiovascular Disease
DX: R69 Illness, unspecified (principal)

== ENCOUNTER 2022-08-24 13:00 | Outpatient (RCR) | payer SELFPAY ==
[2022-07-30 00:07] VITALS: BP 127/70; PULSE 82
[2022-08-03 15:21] VITALS: BP 129/74; PULSE 81
[2022-08-10 14:16] VITALS: BP 116/54; PULSE 79
[2022-08-22 13:14] VITALS: BP 114/70; PULSE 86
[2022-08-24 13:00] VITALS: BP 117/69; PULSE 81
== END 2022-08-29 23:59 | disposition home or self-care (01) ==
LOC: CR 13:00
PROVIDERS: PCP Nurse Practitioner Family; Visit Provider Internal Medicine Cardiovascular Disease
DX: R69 Illness, unspecified (principal)

== ENCOUNTER 2022-10-26 12:59 | Outpatient (RCR) | payer SELFPAY ==
[2022-09-27 00:09] VITALS: BP 139/80; PULSE 85
[2022-10-17 13:10] VITALS: BP 107/62; PULSE 73
[2022-10-19 13:15] VITALS: BP 123/67; PULSE 82
[2022-10-24 13:06] VITALS: BP 119/70; PULSE 83
--- OUTSIDE RECORDS SUMMARY | 2022-10-24 13:30 | XMS_ITS | Continuity of Care Document ---
Author Name Unknown Organization [facility] Address [address] [place] [address] Encounter [facility]TT[facility]_[place] FIN NBR [id number] Date(s): 09/14/22 - 09/14/22 [facility] [address] [place] [address]- [place] Encounter Diagnosis Deviated nasal septum(Discharge Diagnosis) - 09/13/22 Hypertrophy of both inferior nasal turbinates(Discharge Diagnosis) - 09/13/22 Discharge Disposition: Home or Self Care Attending Physician: Ashwin Palomino DO Admitting Physician: Ashwin Palomino DO Referring Physician: Ashwin Palomino DO Allergies, Adverse Reactions, Alerts Substance Reaction Severity Status metoprolol Fatigue Mild Active penicillins Unknown Active Assessment and Plan Future Appointments Functional Status 09/14/22 ADLs Independent Family Member Travel History No recent t ravel Recent Travel History No recent travel Other exposure to Infectious Disease Non e Medications aspirin 81 mg oral delayed release tablet 81 mg = 1 tab, Oral, Daily, # 30 tab, 0 Refill(s) Start Date: 09/11/22 Status: Ordered atorvastatin 40 mg oral tablet 40 mg = 1 tab, Oral, Daily, # 30 tab, 0 Refill(s) Start Date: 09/11/22 Status: Ordered bisoprolol 5 mg oral tablet 5 mg = 1 tab, Oral, Daily, # 30 tab, 0 Refill(s) Start Date: 09/11/22 Status: Ordered clomiPRAMINE 50 mg oral capsule 100 mg = 2 cap, Oral, every night at bedtime, with food, # 120 cap, 0 Refill(s) Start Date: 09/11/22 Status: Ordered Delta D3 10 mcg (400 intl units) oral tablet 10 mcg = 1 tab, Oral, Daily, # 30 tab, 0 Refill(s) Start Date: 09/11/22 Status: Ordered gabapentin 400 mg oral capsule 400 mg = 1 cap, Oral, BID, # 120 cap, 0 Refill(s) Start Date: 09/11/22 Status: Ordered HYDROcodone-acetaminophen 5 mg-325 mg oral tablet 1 tab, Oral, every 6 hr, PRN as needed for pain, # 16 tab, 0 Refill(s), Pharmacy: [facility], 178, cm, 09/11/22 15:28:00 EST, Height/Length Dosing, 109, kg, 09/11/22 15:28:00 EST, Weight Dosing Start Date: 09/14/22 Stop Date: 09/18/22 Status: Ordered HYDROcodone-acetaminophen 7.5 mg-325 mg oral tablet 1 tab, Oral, every 6 hr, PRN as needed for pain, # 12 tab, 0 Refill(s), Pharmacy: [facility], 178, cm, 09/11/22 15:28:00 EST, Height/Length Dosing, 109, kg, 09/11/22 15:28:00 EST, Weight Dosing Start Date: 09/14/22 Stop Date: 09/18/22 Status: Ordered lamoTRIgine 100 mg oral tablet, disintegrating 100 mg = 1 tab, Oral, Daily, # 30 tab, 0 Refill(s) Start Date: 09/11/22 Status: Ordered latanoprost 0.005% ophthalmic solution 1 drops, Eye-Both, every evening, # 2.5 mL, 0 Refill(s) Start Date: 09/11/22 Status: Ordered Latuda 40 mg oral tablet 40 mg = 1 tab, Oral, Daily, # 90 tab, 0 Refill(s) Start Date: 09/11/22 Status: Ordered methylphenidate 54 mg/24 hr oral tablet, extended release 54 mg = 1 tab, Oral, every morning, 0 Refill(s) Start Date: 09/11/22 Status: Ordered Myrbetriq 50 mg oral tablet, extended release 50 mg = 1 tab, Oral, Daily, do not crush or chew, # 30 tab, 0 Refill(s) Start Date: 09/11/22 Status: Ordered nitroglycerin 0.3 mg sublingual tablet 0.3 mg = 1 tab, SL, every 5 min, PRN as needed for chest pain, not to exceed 3 doses/15 min--if pain persists, seek medical attention, # 100 tab, 0 Refill(s) Start Date: 09/11/22 Status: Ordered pantoprazole 40 mg oral delayed release tablet 40 mg = 1 tab, Oral, Daily, # 90 tab, 0 Refill(s) Start Date: 09/11/22 Status: Ordered tolterodine 4 mg oral capsule, extended release 4 mg = 1 cap, Oral, Daily, # 30 cap, 0 Refill(s) Start Date: 09/11/22 Status: Ordered Problem List Condition Confirmation Course Effective Dates Status Health St atus Informant Arthritis Confirmed Active Back pain Confirmed Active Bladder outlet obstruction Confirmed Active BPH - benign prostatic hyperplasia Confirmed Active CAD - Coronary artery disease Confirmed Active Chronic fatigue syndrome Confirmed Active Degenerative disc disease Confirmed Active Deviated nasal septum Confirmed Active GERD - Gastro-esophageal reflux disease Confirmed Active H/O: stroke 1 Confirmed Active Headache Confirmed Active History of myocardial infarction Confirmed Active Hypertrophy of nasal turbinates Confirmed Active Nerve stimulator 2 Confirmed Active ELIAS - Obstructive sleep apnea 3 Confirmed Active Polyp colon Confirmed Active Rhinophyma Confirmed Active Rosacea Confirmed Active Tremor Confirmed Active 1on MRI only 2helps with urinary urges and incontinence 3wears cpap Procedures Procedure Date Related Diagnosis Body Site Status Septoplasty 1 09/14/22 Completed Arthroplasty of knee Comp leted Colonoscopy Completed Implantation of sacral nerve stimulator 2 Completed 1auto-populated from documented surgical case 2for urinary incontinence Vital Signs Most recent to oldest [Reference Range]: 1 2 3 Temperature Temporal Artery [36-38 Deg C] 36.0 Deg C (09/14/22 5:55 PM) 36.0 Deg C (09/14/22 4:36 PM) 36.6 Deg C (09/14/22 12:28 PM) Temperature Temporal Artery (DegF) [97.3-100 Deg F] 96.8 Deg F *LOW* (09/14/22 5:55 PM) 96.8 Deg F *LOW* (09/14/22 4:36 PM) Peripheral Pulse Rate [60-100 bpm] 80 bpm (09/14/22 5:15 PM) 80 bpm (09/14/22 5:00 PM) 78 bpm (09/14/22 4:46 PM) Respiratory Rate [12-24 br/min] 16 br/min (09/14/22 12:28 PM) Blood Pressure [90-140/60-90 mmHg] 112/72mmHg (09/14/22 5:15 PM) 107/68mmHg (09/14/22 5:00 PM) 100/52mmHg (09/14/22 4:46 PM) Mean Arterial Pressure, Cuff [65-140 mmHg] 85 mmHg (09/14/22 5:15 PM) 81 mmHg (09/14/22 5:00 PM) 68 mmHg (09/14/22 4:46 PM) Mean Arterial Pressure Cuff 84 mmHg (09/14/22 5:15 PM) 81 mmHg (09/14/22 5:00 PM) 67 mmHg (09/14/22 4:46 PM) Weight 109.000 kg (09/11/22 3:12 PM) Weight Dosing 109.000 kg (09/11/22 3:12 PM) Height 178.000 cm (09/11/22 3:12 PM) Height/Length Dosing 178.000 cm (09/11/22 3:12 PM) Social History Social History Type Response Tobacco Never tobacco user T obacco Use:. Sex Hospital Discharge Instructions Follow Up Care 09/11/2022 08:08:43 With:Ashwin Palomino DO Address: [address] [place] [id number] When:1 week Discharge instructions * Event Display: Discharge Instructions History and physical note * Event Display: History and Physical Update * Ashwin Palomino, DO: MODIFY, PERFORM Event Display: History and Physical Authored Date: [id number] JESUS ORTIZ JR :1950 Age:72 years Sex:Male Visit Date:09/14/2022 Chief Complaint Deviated nasal septum Physical Exam Vitals & Measurements T:??36.6?C ??(Temporal Artery)?? HR:??78??(Peripheral)?? RR:??16?? BP:??119/70?? SpO2:??98%?? O2 Therapy:??Room air?? Assessment/Plan Deviated nasal septum??J34.2 Ordered: azithromycin, 500 mg = 2 tab, Oral, Tab, Daily for 5 days, Antibiotic Indication Prophylaxis- surgical, First Dose: 09/15/22 9:00:00 EST, Stop Date: 09/20/22 8:59:00 EST, Physician Stop, Routine ?? Hypertrophy of both inferior nasal turbinates??J34.3 Ordered: azithromycin, 500 mg = 2 tab, Oral, Tab, Daily for 5 days, Antibiotic Indication Prophylaxis- surgical, First Dose: 09/15/22 9:00:00 EST, Stop Date: 09/20/22 8:59:00 EST, Physician Stop, Routine ?? Problem List/Past Medical History Ongoing Arthritis Back pain Bladder outlet obstruction BPH - benign prostatic hyperplasia CAD - Coronary artery disease Chronic fatigue syndrome Degenerative disc disease Deviated nasal septum GERD - Gastro-esophageal reflux disease H/O: stroke Headache History of myocardial infarction Hypertrophy of nasal turbinates Nerve stimulator ELIAS - Obstructive sleep apnea Polyp colon Rhinophyma Rosacea Tremor Historical No qualifying data Procedure/Surgical History ???Arthroplasty of knee???Colonoscopy???Implantation of sacral nerve stimulator Medications Inpatient azithromycin, 500 mg= 2 tab, Oral, Daily clindamycin, 600 mg= 50 mL, IV Piggyback, Once dexamethasone 10 mg/mL injectable solution, 12 mg= 1.2 mL, IV Push, PREOP LR 1,000 mL, 1000 mL, IV Normal Saline Flush, 10 mL, IV Flush, As Directed, PRN Home aspirin 81 mg oral delayed release tablet, 81 mg= 1 tab, Oral, Daily atorvastatin 40 mg oral tablet, 40 mg= 1 tab, Oral, Daily bisoprolol 5 mg oral tablet, 5 mg= 1 tab, Oral, Daily clomiPRAMINE 50 mg oral capsule, 100 mg= 2 cap, Oral, every night at bedtime Delta D3 10 mcg (400 intl units) oral tablet, 10 mcg= 1 tab, Oral, Daily gabapentin 400 mg oral capsule, 400 mg= 1 cap, Oral, BID HYDROcodone-acetaminophen 5 mg-325 mg oral tablet, 1 tab, Oral, every 6 hr, PRN lamoTRIgine 100 mg oral tablet, disintegrating, 100 mg= 1 tab, Oral, Daily latanoprost 0.005% ophthalmic solution, 1 drops, Eye-Both, every evening Latuda 40 mg oral tablet, 40 mg= 1 tab, Oral, Daily methylphenidate 54 mg/24 hr oral tablet, extended release, 54 mg= 1 tab, Oral, every morning Myrbetriq 50 mg oral tablet, extended release, 50 mg= 1 tab, Oral, Daily nitroglycerin 0.3 mg sublingual tablet, 0.3 mg= 1 tab, SL, every 5 min, PRN pantoprazole 40 mg oral delayed release tablet, 40 mg= 1 tab, Oral, Daily tolterodine 4 mg oral capsule, extended release, 4 mg= 1 cap, Oral, Daily Allergies metoprolol??(Fatigue) penicillins Social History Alcohol Current, 1-2 times per year Electronic Cigarette/Vaping Electronic Cigarette Use: Never. Substance Use Never Tobacco Never tobacco user Tobacco Use:. Electronically Signed on 09/14/22 04:23 PM Ashwin Palomino, DO * Ashwin Palomino, DO: PERFORM Event Display: History and Physical Authored Date: [id number] JESUS ORTIZ JR :1950 Age:72 years Sex:Male Visit Date:09/14/2022 Chief Complaint Chronic nasal obstruction??and difficulty breathing??H&P update History of Present Illness Chronic difficulty breathing through his nose evidence of??nasal valve collapse, septal deviation, nasal obstruction, rhinophyma and deviated septum with nasal inferior turbinate hypertrophy. ??He has failed maximal medical??treatment, he wishes to proceed with surgical??correction. ??He did have aCT of the sinuses which was negative.?? He has been on Astelin.?? He has tried intranasal steroids.?? He is interested in??definite correction.?? 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 HR:??78??(Peripheral)?? RR:??16?? BP:??119/70?? SpO2:??98%?? O2 Therapy:??Room air?? Heart regular rate rhythm, lungs clear to auscultation, alert and orientated x3. Assessment/Plan Deviated nasal septum??J34.2 There was a full discussion of all treatment options including conservative management, second opinion and surgical intervention. The patient and or family has opted to proceed with surgical intervention. We have discussed risks and complications as it relates to the procedure and postoperative period, including but not limited to those listed on the consent. All of their questions were answered,consent was reviewed and signed. There is no history of any bleeding disorders or anesthesia complications. We will proceed. Hypertrophy of both inferior nasal turbinates??J34.3 In conjunction with mild bilateral internal nasal??valve repair, planning for nasal septal reconstruction repair of internal nasal valve with homograft and submucosal resection of inferior turbinates Problem List/Past Medical History Ongoing Arthritis Back pain Bladder outlet obstruction BPH - benign prostatic hyperplasia CAD - Coronary artery disease Chronic fatigue syndrome Degenerative disc disease Deviated nasal septum GERD - Gastro-esophageal reflux disease H/O: stroke Headache History of myocardial infarction Hypertrophy of nasal turbinates Nerve stimulator ELIAS - Obstructive sleep apnea Polyp colon Rhinophyma Rosacea Tremor Historical No qualifying data Procedure/Surgical History ???Arthroplasty of knee???Colonoscopy???Implantation of sacral nerve stimulator Medications Inpatient clindamycin, 600 mg= 50 mL, IV Piggyback, Once dexamethasone 10 mg/mL injectable solution, 12 mg= 1.2 mL, IV Push, PREOP LR 1,000 mL, 1000 mL, IV Normal Saline Flush, 10 mL, IV Flush, As Directed, PRN Home aspirin 81 mg oral delayed release tablet, 81 mg= 1 tab, Oral, Daily atorvastatin 40 mg oral tablet, 40 mg= 1 tab, Oral, Daily bisoprolol 5 mg oral tablet, 5 mg= 1 tab, Oral, Daily clomiPRAMINE 50 mg oral capsule, 100 mg= 2 cap, Oral, every night at bedtime Delta D3 10 mcg (400 intl units) oral tablet, 10 mcg= 1 tab, Oral, Daily gabapentin 400 mg oral capsule, 400 mg= 1 cap, Oral, BID lamoTRIgine 100 mg oral tablet, disintegrating, 100 mg= 1 tab, Oral, Daily latanoprost 0.005% ophthalmic solution, 1 drops, Eye-Both, every evening Latuda 40 mg oral tablet, 40 mg= 1 tab, Oral, Daily methylphenidate 54 mg/24 hr oral tablet, extended release, 54 mg= 1 tab, Oral, every morning Myrbetriq 50 mg oral tablet, extended release, 50 mg= 1 tab, Oral, Daily nitroglycerin 0.3 mg sublingual tablet, 0.3 mg= 1 tab, SL, every 5 min, PRN pantoprazole 40 mg oral delayed release tablet, 40 mg= 1 tab, Oral, Daily tolterodine 4 mg oral capsule, extended release, 4 mg= 1 cap, Oral, Daily Allergies metoprolol??(Fatigue) penicillins Social History Alcohol Current, 1-2 times per year Electronic Cigarette/Vaping Electronic Cigarette Use: Never. Substance Use Never Tobacco Never tobacco user Tobacco Use:. Electronically Signed on 09/14/22 02:41 PM Ashwin Palomino DO * Event Display: History and Physical Patient Care team information Care Team Related Persons Name: JOSEFINA ORTIZ
--- OUTSIDE RECORDS SUMMARY | 2022-10-24 13:30 | XMS_ITS | Continuity of Care Document ---
Author Name Unknown Organization [facility] Ambulatory Clinics Address [address] [place] [address] Encounter [facility] NBR [id number] Date(s): 09/19/22 - 09/19/22 [facility] Ambulatory Clinics [address] [place] [address]- [place] Encounter Diagnosis Postoperative examination(Discharge Diagnosis) - 09/18/22 Discharge Disposition: Home or Self Care Attending Physician: SARA Magallanes Allergies, Adverse Reactions, Alerts Substance Reaction Severity Status metoprolol Fatigue Mild Active penicillins Unknown Active Medications aspirin 81 mg oral delayed release [...] 0 Refill(s) Start Date: 09/11/22 Status: Ordered lamoTRIgine 100 mg oral tablet, [...] from documented surgical case 2for urinary incontinence Social History Social History Type Response Tobacco Never tobacco user T obacco Use:. Sex Physician Outpatient Note * SARA Magallanes: PERFORM, MODIFY, MODIFY, MODIFY Event Display: Office Clinic Note Physician Authored Date: [id number] JESUS ORTIZ JR :1950 Age:72 years Sex:Male Visit Date:09/19/2022 Chief Complaint [id number] History of Present Illness Established patient in the office today for a post-op visit. Patient had a??septoplasty and turbinate reduction??performed 09/14/22.?? He is here today for stent removal and evaluation postoperatively. He took medication as directed. Denies any pain. His nose has been plugged up with stents. Otherwise well. Review of Systems Negative for: no new cardiac, respiratory, GI, , hematologic, neurologic, psychological, allergic, traumatic or endocrine problems except as listed above Physical Exam GENERAL APPEARANCE:??The patient is awake, alert, and oriented and in no acute distress, Appears nutritionally sound, Healthy in appearance, Voice is strong, with no stridor or stertor, Handling secretions without difficulty.?PSYCH:??affect normal, good eye contact, oriented to person, oriented to place, oriented to time.?NEURO:??CN's II-XII grossly intact, Gait is normal,?HEENT:??The patient is normocephalic with a normal facies with cranial nerves 2 through 12 bilaterally equal and intact. Pupils are equal and reactive to light with extraocular movements bilaterally equal and intact. There is no proptosis or enophthalmos,??EARS:, Ear exam reveals normal appearing pinna bilaterally. Mastoids are normal to palpation and nontender bilaterally. the ext ernal canal are patent, without otorrhea, with bilateral TM's mobile with no evidence of middle earfluid, middle ear masses, or retraction pockets.??NOSE:,??Septum is midline and??intact.?No evidence of nasal septal hematoma.?? The inferior turbinates are within normal limits, The middle meati a re unremarkable with no polyps, masses or purulent discharge,??ORAL CAVITY:, no trismus, tongue andfloor of mouth are normal to inspection and palpation. Mucosa is moist and healthy throughout. the palate is intact and elevates symmetrically in midline,??OROPHARYNX:, Uvula midline, soft palate symmetric.?NECK:??There is no palpable lymphadenopathy.?HEART:??regular rate and rhythm.?LUNGS:??clear to auscultation bilaterally, no wheezes/rhonchi/rales.?SKIN:??normal across the head and neck.?MUSCULOSKELETAL:??normal gait and station.?? Assessment/Plan 1.??Postoperative examination??Z09 Curtice is healing well. ??Septum is midline??and??mucosa??intact. ??No evidence of hematoma.?? He has had no signs or symptoms of complications from surgery. ??Stents were removed today without complication.?? He??was instructed to continue cleaning with peroxide??1-2 times daily over the next 1 to 2 weeks and start saline sprays.?? He can restart use of??CPAP. ??Recommend follow-up??as needed. Problem List/Past Medical History Ongoing Arthritis Back [...] Tremor Historical No qualifying data Procedure/Surgical History ???Septoplasty (09/14/2022)???Arthroplasty of knee???Colonoscopy???Implantation of sacral nerve stimulator Medications aspirin 81 mg oral delayed release tablet, [...] 1 tab, Oral, every 6 hr, PRN HYDROcodone-acetaminophen 7.5 mg-325 mg oral tablet, 1 tab, Oral, [...] tobacco user Tobacco Use:. Electronically Signed on 09/19/22 09:43 AM SARA Magallanes Patient Care team information Care Team Related Persons Name: JOSEFINA ORTIZ
[2022-10-26 13:06] VITALS: BP 115/69; PULSE 80
== END 2022-10-27 23:59 | disposition home or self-care (01) ==
LOC: CR 12:59
PROVIDERS: PCP Nurse Practitioner Family; Visit Provider Internal Medicine Cardiovascular Disease
DX: R69 Illness, unspecified (principal)

== ENCOUNTER 2022-11-21 13:03 | Outpatient (RCR) | payer SELFPAY ==
[2022-10-28 00:18] VITALS: BP 115/69; PULSE 80
[2022-11-02 13:10] VITALS: BP 116/68; PULSE 79
[2022-11-07 13:08] VITALS: BP 113/63; PULSE 83
[2022-11-09 09:03] VITALS: BP 111/65; PULSE 70
[2022-11-09 13:07] VITALS: BP 124/70; PULSE 82
[2022-11-21 13:07] VITALS: BP 136/80; PULSE 81
== END 2022-11-26 23:59 | disposition home or self-care (01) ==
LOC: CR 13:03
PROVIDERS: PCP Nurse Practitioner Family; Visit Provider Internal Medicine Cardiovascular Disease
DX: R69 Illness, unspecified (principal)

== ENCOUNTER 2022-12-05 07:49 | Outpatient (CLI) | payer MEDICARE, SELFPAY ==
--- NOTE | 2022-12-05 07:45 | RT.EKG_ITS ---
APPROVED REPORT Exam: Resting ECG Reason for Exam: CAD Patient Location: O HR:83 bpm ECG Measurements Heart Rate 83 AXIS [place] 141 P 52 QRSd 96 QRS 34 QT 378 T 1 QTc 445 Conclusion Sinus rhythm...normal P axis, V-rate 50- 99 Probable left atrial enlargement...P >50mS, <-0.10mV V1 Borderline low voltage, extremity leads...all extremity leads <0.6mV early transition...QRS area>0 in V2
== END 2022-12-05 07:50 | disposition home or self-care (01) ==
LOC: DI.CARD 07:50
PROVIDERS: PCP Nurse Practitioner Family; Visit Provider Internal Medicine Cardiovascular Disease
DX: I25.10 Atherosclerotic heart disease of native coronary artery without angina pectoris (principal)
CPT/HCPCS: 93010

== ENCOUNTER → 2022-12-05 08:51 | Outpatient (BNVA) | payer MEDICARE, SELFPAY | PROVIDERS: PCP Nurse Practitioner Family; Visit Provider Internal Medicine Cardiovascular Disease | DX: I25.10 Atherosclerotic heart disease of native coronary artery without angina pectoris (principal) | CPT/HCPCS: 93005; 99214 ==

== ENCOUNTER 2022-12-21 12:59 | Outpatient (RCR) | payer SELFPAY ==
[2022-11-27 00:08] VITALS: BP 136/80; PULSE 81
[2022-12-12 13:57] VITALS: BP 112/66; PULSE 75
[2022-12-14 13:10] VITALS: BP 105/57; PULSE 78
[2022-12-19 13:05] VITALS: BP 134/59; PULSE 83
[2022-12-21 13:05] VITALS: BP 129/77; PULSE 88
== END 2022-12-27 23:59 | disposition home or self-care (01) ==
LOC: CR 12:59
PROVIDERS: PCP Nurse Practitioner Family; Visit Provider Internal Medicine Cardiovascular Disease

== ENCOUNTER 2023-01-25 13:04 | Outpatient (RCR) | payer SELFPAY ==
[2022-12-28 00:05] VITALS: BP 129/77; PULSE 88
[2023-01-09 13:50] VITALS: BP 121/68; PULSE 81
[2023-01-16 12:56] VITALS: BP 110/61
[2023-01-23 13:04] VITALS: BP 107/66; PULSE 77
[2023-01-25 13:11] VITALS: BP 117/65; PULSE 84
== END 2023-01-26 23:59 | disposition home or self-care (01) ==
LOC: CR 13:04
PROVIDERS: PCP Nurse Practitioner Family; Visit Provider Internal Medicine Cardiovascular Disease
DX: R69 Illness, unspecified (principal)

== ENCOUNTER 2023-02-20 13:05 | Outpatient (RCR) | payer SELFPAY ==
[2023-01-27 00:03] VITALS: BP 117/65; PULSE 84
[2023-02-01 13:11] VITALS: BP 124/56; PULSE 79
[2023-02-15 13:47] VITALS: BP 126/71; PULSE 79
[2023-02-20 13:07] VITALS: BP 117/71; PULSE 56
== END 2023-02-26 23:59 | disposition home or self-care (01) ==
LOC: CR 13:05
PROVIDERS: PCP Nurse Practitioner Family; Visit Provider Internal Medicine Cardiovascular Disease
DX: R69 Illness, unspecified (principal)

== ENCOUNTER 2023-03-22 13:11 | Outpatient (RCR) | payer SELFPAY ==
[2023-02-27 00:02] VITALS: BP 117/71; PULSE 56
[2023-02-27 13:20] VITALS: BP 118/68; PULSE 80
[2023-03-01 13:19] VITALS: BP 105/61; PULSE 82
[2023-03-08 13:16] VITALS: BP 110/66; PULSE 81
[2023-03-13 13:49] VITALS: BP 113/59; PULSE 78
[2023-03-15 13:06] VITALS: BP 132/76; PULSE 91
[2023-03-20 13:06] VITALS: BP 118/62; PULSE 77
[2023-03-22 13:07] VITALS: BP 111/66; PULSE 74
== END 2023-03-29 23:59 | disposition home or self-care (01) ==
LOC: CR 13:11
PROVIDERS: PCP Nurse Practitioner Family; Visit Provider Internal Medicine Cardiovascular Disease
DX: R69 Illness, unspecified (principal)

== ENCOUNTER 2023-04-26 13:11 | Outpatient (RCR) | payer SELFPAY ==
[2023-03-30 00:02] VITALS: BP 111/66; PULSE 74
[2023-04-10 13:10] VITALS: BP 117/63; PULSE 73
[2023-04-17 13:17] VITALS: BP 127/69; PULSE 78
[2023-04-24 13:31] VITALS: BP 129/72; PULSE 83
[2023-04-26 13:11] VITALS: BP 124/75; PULSE 77
== END 2023-04-28 23:59 | disposition home or self-care (01) ==
LOC: CR 13:11
PROVIDERS: PCP Nurse Practitioner Family; Visit Provider Internal Medicine Cardiovascular Disease
DX: R69 Illness, unspecified (principal)

== ENCOUNTER 2023-05-24 13:07 | Outpatient (RCR) | payer SELFPAY ==
[2023-04-29 00:02] VITALS: BP 124/75; PULSE 77
[2023-05-03 13:09] VITALS: BP 120/71; PULSE 76
[2023-05-15 13:09] VITALS: BP 114/68; PULSE 82
[2023-05-17 13:17] VITALS: BP 110/63; PULSE 72
[2023-05-23 10:59] VITALS: BP 150/64; PULSE 53
[2023-05-24 13:10] VITALS: BP 110/70; PULSE 79
== END 2023-05-29 23:59 | disposition home or self-care (01) ==
LOC: CR 13:07
PROVIDERS: PCP Nurse Practitioner Family; Visit Provider Internal Medicine Cardiovascular Disease
DX: R69 Illness, unspecified (principal)

== ENCOUNTER 2023-05-28 03:27 | Outpatient (CLI) | payer MEDICARE, SELFPAY | END 2023-05-28 03:28 | disposition home or self-care (01) | LOC: LBO 03:27 | PROVIDERS: PCP Nurse Practitioner Family; Visit Provider Urology | DX: N32.81 Overactive bladder (principal) | CPT/HCPCS: 87077; 87086; 87186 ==

== ENCOUNTER 2023-06-28 13:11 | Outpatient (RCR) | payer SELFPAY ==
[2023-05-30 00:15] VITALS: BP 124/75; PULSE 77
[2023-05-31 13:11] VITALS: BP 110/62; PULSE 73
[2023-06-12 13:18] VITALS: BP 122/69; PULSE 84
[2023-06-19 13:17] VITALS: BP 144/77; PULSE 85
[2023-06-26 13:05] VITALS: BP 112/67; PULSE 85
[2023-06-28 13:22] VITALS: BP 142/60; PULSE 79
== END 2023-06-28 23:59 | disposition home or self-care (01) ==
LOC: CR 13:11
PROVIDERS: PCP Nurse Practitioner Family; Visit Provider Internal Medicine Cardiovascular Disease
DX: R69 Illness, unspecified (principal)

== ENCOUNTER → 2023-07-13 00:48 | Outpatient (CLI) | payer MEDICARE, SELFPAY ==
--- NOTE | 2023-07-13 08:45 | DI.CT_ITS ---
Exam(s) CT CHEST WO EXAM: CT CHEST WO CLINICAL HISTORY: monitor pulmonary nodules,R91.8. TECHNIQUE: Imaging protocol: Axial computed tomography images were obtained and coronal and sagittal reformatted images were created and reviewed. CONTRAST MATERIAL: Noncontrast COMPARISON: CT CHEST WITH CONTRAST from 08/05/[address] CHEST PE CTA from 07/09/2021 FINDINGS: Pulmonary parenchyma: No consolidation. Multiple scattered tiny nodules, unchanged from 2016.. No s uspicious nodules. Emphysema: None. Tracheobronchial tree: No mucous plugging. No bronchiectasis . Interstitial changes: None. Pleura: No effusion or pneumothorax. Heart: The heart is mildly dilated. The coronary arteries show moderate to severe calcifications. Aorta: Thoracic aorta non-dilated. Mildatherosclerotic changes. Lymph nodes: No enlarged lymph nodes. Bones: Scoliosis and degenerative changes are seen. No evidence of compression fracture. Upper abdomen: Unremarkable. Soft tissues: Unremarkable. IMPRESSION: Stable bilateral pulmonary nodules since 2016. No follow-up recommended. If the patient is at high risk for lung cancer, a low-dose screening CT could be performed in 1 year. . RADIATION DOSE DELIVERED: Total DLP Total DLP DATA REPOSITORY: All CT scans at this facility are submitted to the National Radiology Data Registry (NRDR) Dose Index Registry (DIR) with the [employer] (ACR). RADIATION OPTIMIZATION: All CT scans at this facility use at least one of these dose optimization te chniques: automated exposure control; mA and/or kV adjustment per patient size (includes targeted exa ms where dose is matched to clinical indication); or iterative reconstruction.
== END ==
PROVIDERS: PCP Nurse Practitioner Family; Visit Provider Nurse Practitioner Family
DX: R91.8 Other nonspecific abnormal finding of lung field (principal)
CPT/HCPCS: 71250

== ENCOUNTER 2023-07-19 13:03 | Outpatient (RCR) | payer SELFPAY ==
[2023-06-29 00:08] VITALS: BP 124/75; PULSE 77
[2023-07-03 13:17] VITALS: BP 123/68; PULSE 79
[2023-07-12 14:45] VITALS: BP 118/67; PULSE 74
== END 2023-07-29 23:59 | disposition home or self-care (01) ==
LOC: CR 13:03
PROVIDERS: PCP Nurse Practitioner Family; Visit Provider Internal Medicine Cardiovascular Disease
DX: R69 Illness, unspecified (principal)

== ENCOUNTER 2023-08-21 13:04 | Outpatient (RCR) | payer SELFPAY ==
[2023-07-30 00:04] VITALS: BP 124/75; PULSE 77
[2023-08-16 13:10] VITALS: BP 113/69; PULSE 76
[2023-08-21 13:10] VITALS: BP 105/62; PULSE 82
== END 2023-08-29 23:59 | disposition home or self-care (01) ==
LOC: CR 13:04
PROVIDERS: PCP Nurse Practitioner Family; Visit Provider Internal Medicine Interventional Cardiology
DX: R69 Illness, unspecified (principal)

== ENCOUNTER 2023-08-28 02:27 | Outpatient (CLI) | payer MEDICARE, SELFPAY ==
[2023-08-28 15:42] LABS: Anion Gap 6.4 mmol/L (3-11); BUN 17 mg/dL (7-18); CO2 30.6 mmol/L (21.0-32.0); Calculated LDL 79 mg/dL (<100); Chloride 103 mmol/L (98-107); Cholesterol 153 mg/dL (<200); Estimated GFR 80.47 (mL/min/1.73m2); Glucose 87 mg/dL (74-106); HDL Cholesterol 54 mg/dL (40-60); Potassium 3.9 mmol/L (3.5-5.1); Sodium 140 mmol/L (136-145); Triglyceride 104 mg/dL (<150)
== END 2023-08-28 02:28 | disposition home or self-care (01) ==
PROVIDERS: PCP Nurse Practitioner Family; Visit Provider Nurse Practitioner Family
DX: F41.8 Other specified anxiety disorders (principal); K21.9 Gastro-esophageal reflux disease without esophagitis; M54.2 Cervicalgia; R32 Unspecified urinary incontinence; R91.8 Other nonspecific abnormal finding of lung field; Z00.00 Encounter for general adult medical examination without abnormal findings; I25.10 Atherosclerotic heart disease of native coronary artery without angina pectoris
CPT/HCPCS: 36415; 80048; 80061

== ENCOUNTER 2023-08-30 20:03 | Emergency (ER) | payer MEDICARE, SELFPAY ==
--- NOTE | 2023-08-30 20:00 | RT.EKG_ITS ---
APPROVED REPORT Exam: Resting ECG Reason for Exam: shortness of breath Patient Location: E HR:78 bpm ECG Measurements Heart Rate 78 AXIS KS 145 P 104 QRSd 88 QRS 167 QT 371 T -9 QTc 423 Conclusion Sinus rhythm...normal P axis, V-rate 60- 99 Left atrial enlargement...P, P'>60mS, <-0.15mV V1 Low voltage, precordial leads...precordial leads <1.0mV Posterior infarct, old...prom R T, V1-V3 or Q >40mS, V7-V9
[2023-08-30 20:08] VITALS: BP 113/64; PULSE 85; RESP 16; TEMP 37.1; O2SAT 98
--- NOTE | 2023-08-30 20:15 | DI.CT_ITS ---
Exam(s) CT CHEST PE ABD PELVIS W EXAM: CT CHEST PE ABD PELVIS W CLINICAL HISTORY: shortness of breath, upper abdominal pain. TECHNIQUE: Imaging Protocol: Axial CT angiography was performed with multi-slice acquisition and mu lti-planar and/or 3D reconstructions. CONTRAST MATERIAL: Intravenous: Omnipaque 350contrast volume:88 mL COMPARISON: CT CT CHEST PE CTA from 07/09/[address] CHEST WO from 07/13/2023 FINDINGS: CHEST: Tracheobronchial tree: Patent where visualized. Pulmonary parenchyma: There are dependent atelectatic changes in the lungs. There unchanged tiny pul monary nodules. No suspicious nodules are seen. No focal consolidation. Pulmonary Arteries: No evidence of filling defect to suggest pulmonary emboli. Mediastinum and Ashlee: No dominant adenopathy or fluid collection. The esophagus is unremarkable. Visualized thyroid gland: Unremarkable. Pleura: No effusion or pneumothorax. Heart: The heart is not dilated. Coronary artery calcifications are present. No significant pericard ial effusion. Aorta: Thoracic aorta non-dilated. No evidence of dissection. Bones: Within normal limits for the patient's age. Soft tissues: Unremarkable. ABDOMEN: Liver: Normal density. There are tiny stable hypodensities in the liver. They are too small for furt her characterization. Portal, Superior Mesenteric, and Splenic Veins: Unremarkable. Gallbladder and Biliary Tract: No radiodense calculus or dilation. Pancreas: Normal density, no abnormal calcifications or inflammatory process. Spleen: Normal. Adrenals: No masses seen. Kidneys: Normal size, contour and axis. There is a density in the lower pole of the left kidney which may represent a nonobstructing stone or early contrast excretion. There are bilateral simple renal cysts. No follow-up is recommended. Abdominal Aorta: Abdominal portion non-dilated. Atherosclerosis. Bowel: No obstruction or bowel wall thickening. There is a duodenal diverticulum present. No evidenc e of appendicitis. Peritoneal Cavity: No ascites, collection or mesenteric inflammatory response. No free air. Lymph Nodes: Within normal limits. Bones: Within normal limits for the patient's age. Soft Tissues: There is a nerve stimulating device present in the sacrum. PELVIS: Bladder: The urinary bladder is incompletely distended. Reproductive Organs: Unremarkable as visualized. Lymph Nodes: Within normal limits. Bones: Within normal limits. IMPRESSION: 1. No evidence pulmonary embolism, thoracic aortic dissection or aneurysm. 2. No acute pulmonary process. 3. No acute abdominal or pelvic process. 4. Stable findings in the chest, abdomen and pelvis as described above. RADIATION DOSE DELIVERED: 2,033.12mGy.cm Total DLP DATA REPOSITORY: All CT scans at this facility are submitted to the National Radiology Data Registry (NRDR) Dose Index Registry (DIR) with the [employer] (ACR). RADIATION OPTIMIZATION: All CT scans at this facility use at least one of these dose optimization te chniques: automated exposure control; mA and/or kV adjustment per patient size (includes targeted exa ms where dose is matched to clinical indication); or iterative reconstruction.
--- NOTE | 2023-08-30 20:21 | ED.GENADUL_ITS ---
HPI General Mode of arrival: ambulatory . Date/Time Provider Initiated Documentation: 08/30/23 20:05 . Limitations to Documentation: no limitations . Information obtained by: patient . History of Present Illness 73 year old M presents to the emergency department with the chief complaint of abdominal pain, described as moderate, Quality is described as sharp, Patient started experiencing this hour(s) (12) and it has been constant. No relieving factors improve symptom(s), No exacerbating factors reported . Patient notes shortness of breath; denies chest pain. Patient did receive the following treatments prior to arrival, none Related Data Home Medications Medication Instructions Recorded Confirmed gabapentin 800 mg tablet 400 mg PO BID #270 tab-caps 01/28/13 08/30/23 (Neurontin) mirabegron 50 mg tablet,extended 50 mg PO DAILY #90 tab-caps 09/14/17 08/30/23 release 24 hr (Myrbetriq) methylphenidate HCl 54 mg 54 mg PO QAM 06/10/19 08/30/23 tablet,extended release 24 hr (Concerta) acetaminophen 500 mg tablet 500 mg PO Q6H PRN 10/02/19 08/30/23 calcium carbonate 500 mg calcium 2 mg PO PRN PRN 02/19/21 08/30/23 (1,250 mg) chewable tablet artificial tears ointment 1 applic ophthalmic (eye) HS 07/19/21 08/30/23 latanoprost 0.005 % eye drops 1 drp ophthalmic (eye) DAILY 07/19/21 08/30/23 propylene glycol 0.6 % eye drops 1 drp ophthalmic (eye) TID PRN 07/19/21 08/30/23 (Systane Complete) ibuprofen 400 mg tablet 400 mg PO PRN 11/15/21 08/30/23 clomipramine 50 mg capsule 50 mg PO HS 10/27/22 08/30/23 lurasidone 60 mg tablet (Latuda) 60 mg PO DAILY 10/27/22 08/30/23 aspirin 81 mg tablet,delayed 81 mg PO DAILY #90 tabs 06/15/23 08/30/23 release atorvastatin 40 mg tablet 40 mg PO DAILY #90 tabs 06/15/23 08/30/23 bisoprolol fumarate 5 mg tablet 5 mg PO DAILY #90 tabs 11/17/23 02/01/24 cholecalciferol (vitamin D3) 50 100 mcg (2 x 50 mcg (2,000 unit)) 06/15/23 08/30/23 mcg (2,000 unit) capsule PO DAILY #180 caps magnesium oxide 500 mg capsule 500 mg PO DAILY #90 caps 07/08/23 08/30/23 pantoprazole 40 mg tablet,delayed 40 mg PO DAILY #90 tab-caps 07/08/23 08/30/23 release riboflavin (vitamin B2) 100 mg 100 mg PO BID #180 tabs 07/08/23 08/30/23 tablet tolterodine 4 mg capsule,extended 4 mg PO DAILY #90 caps 07/08/23 08/30/23 release 24 hr (Detrol LA) nitroglycerin 0.4 mg sublingual 0.4 mg sublingual Q5M PRN chest 08/28/23 08/30/23 tablet pain #30 tabs levofloxacin 750 mg tablet 750 mg PO DAILY #5 tabs 08/30/23 Previous Rx's Medication Instructions Recorded mirabegron 50 mg tablet,extended 50 mg PO DAILY #90 tab-caps 09/14/17 release 24 hr (Myrbetriq) aspirin 81 mg tablet,delayed 81 mg PO DAILY #90 tabs 06/15/23 release atorvastatin 40 mg tablet 40 mg PO DAILY #90 tabs 06/15/23 bisoprolol fumarate 5 mg tablet 5 mg PO DAILY #90 tabs 06/15/23 cholecalciferol (vitamin D3) 50 100 mcg (2 x 50 mcg (2,000 unit)) 06/15/23 mcg (2,000 unit) capsule PO DAILY #180 caps magnesium oxide 500 mg capsule 500 mg PO DAILY #90 caps 07/08/23 pantoprazole 40 mg tablet,delayed 40 mg PO DAILY #90 tab-caps 07/08/23 release riboflavin (vitamin B2) 100 mg 100 mg PO BID #180 tabs 07/08/23 tablet tolterodine 4 mg capsule,extended 4 mg PO DAILY #90 caps 07/08/23 release 24 hr (Detrol LA) nitroglycerin 0.4 mg sublingual 0.4 mg sublingual Q5M PRN chest 08/28/23 tablet pain #30 tabs levofloxacin 750 mg tablet 750 mg PO DAILY #5 tabs 08/30/23 Allergies Allergy/AdvReac Type Severity Reaction Status Date / Time Penicillins Allergy Unknown Unknown Verified 08/30/23 20:13 metoprolol AdvReac fatigue Verified 08/30/23 20:13 General Stated Complaint: Nausea/Vomit/Diar MARTY: 3 Review of Systems All systems reviewed & are unremarkable except as noted in HPI and below Constitutional Constitutional: Denies chills, Denies fever(s) and Denies weakness Cardiovascular Cardiovascular: Denies chest pain and Reports dyspnea Respiratory Respiratory: Denies cough and Reports dyspnea Gastrointestinal Gastrointestinal: Reports abdominal pain, Reports diarrhea and Denies vomiting Genitourinary Genitourinary: Denies dysuria Integumentary/Breasts Skin/Breast: Denies rash Neurologic Neurologic: Denies weakness Exam Const General: no acute distress Orientation: alert HENMT Head: normal to inspection Ears: external ears normal General nose exam: external nose normal Mouth: moist mucous membranes Eyes General: appearance normal, both eyes and all related structures Neck Neck: normal visual inspection Resp Effort & Inspection: normal respiratory effort and able to speak in complete sentences Auscultation: clear to auscultation bilaterally Cardio Jugular venous pressure: no JVD Rate: regular rate Heart Sounds: no murmurs GI Palpation: soft and tender Skin General skin exam: no rashes or lesions noted Neuro General: patient alert and patient oriented x3 Extrem General: normal to inspection Psych Mental Status: mental status grossly normal Course Vital Signs Vital signs: Vital Signs Temperature 37.1 C 08/30/23 20:08 Pulse 85 08/30/23 20:08 Respiratory Rate 16 08/30/23 20:08 Blood Pressure 113/64 08/30/23 20:08 Pulse Oximetry 98 08/30/23 20:08 Temperature 37.1 C 08/30/23 20:08 Temperature Source Skin 08/30/23 20:08 Pulse 85 08/30/23 20:08 Respiratory Rate 16 08/30/23 20:08 Respiratory Effort Normal, Non-Labored 08/30/23 20:12 Blood Pressure 113/64 08/30/23 20:08 Blood Pressure Position Sitting 08/30/23 20:08 Pulse Oximetry 98 08/30/23 20:08 Oxygen Delivery Method Room Air 08/30/23 20:08 Oxygen Flow Rate 0 08/30/23 20:08 Pain Level 5 08/30/23 20:08 Medical Decision Making 73 yo male with hx of SC, denies prior abdominal surgeries, comes in with sharp mid and upper abdominal pain since this morning. Denies fevers, chills, chest pain, vomiting. HE has noticed some dyspnea but states he feels as though it's hard to breath through his nose and no issues breathing through his mouth. HE is caox4 speaking clearly in no distress. He has a soft abdomen with tenderness in the ruq, epigstric area and mid abdomen. Unclear etiologies for his symptoms, given his age will obtain cbc, cmp, lipase and ct abdomen and pelvis to evaluate for cholecystitis, pancreatitis and sbo among other pathology and given his complaint of dyspnea also obtain cta of his chest to evaluate for PE pt asymptomatic ambulatory without symptoms, labs unremarkable other then ua consistent with uti and he does self cath per patient, has penicillin allergy so will start levofloxacin. CT without significant abnormality. HAs a small pericardial effusion, he states he has a potato chip cooker machine he sees so recommended following up with them, he has no abdominal tendereness and given over 3 hours of symptoms do not feel delta troponin indicated. Differential Diagnosis Differential Diagnosis: pancreatitis, cholecystitis, sbo Medical Records Medical records reviewed: Yes I reviewed the patient's medical records. Imaging Data Radiologic Study: Attestation: I personally reviewed and interpreted this imaging study as follows: Imaging: CT Scan Radiologist's impression: IMPRESSION: 1. No evidence of aortic aneurysm or dissection. Moderate atherosclerotic changes noted 2. Small pericardial effusion 3. Suspected mild left nephrolithiasis 4. Severe degenerative changes of the lumbar spine. Lab Data Lab results reviewed: Yes I reviewed the patient's lab results. ECG Data Attestation: I personally reviewed and interpreted this ECG (s) as follows: Prior ECG tracings: available for review Interpretation: sinus rate of 78 pr 145 no stemi Quality:SDOH Health Related Social Needs: No Data to Display PFSH All Active Problems (Updated 08/30/23 @ 22:15 by Edson Zhu MD) Shortness of breath (Acute) Abdominal pain (Acute) Urinary tract infection (Acute) Urinary incontinence (Acute) Gets botox injection in the bladder, [place] [facility] [place] Osteoarthritis of right knee (Chronic 09/01/13) Sleep apnea (Chronic) uses device Anxiety and depression (Chronic) Arthritis (Chronic 01/26/16) Chronic fatigue (Chronic 07/29/15) GERD (gastroesophageal reflux disease) (Chronic 03/11/15) Increased BMI (body mass index) (Chronic 08/13/17) Lung mass (Chronic 07/26/15) work up in progress 08/01/19 per pt. states that he has no issues with his lungs Rosacea (Chronic) Tremor (Chronic) Urgency incontinence (Chronic 01/12/16) PVP on 07/09/18, uncomplicated, at [facility] [place] (Dr. Snow) Plavix restarted. 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 states he is being followed by Dr. Robertson @ [facility] Elevated PSA, less than 10 ng/ml (08/13/17) PSA 7.6: negative prostrate biopsy 10/14 at [facility] Degeneration of cervical intervertebral disc C5/6 foraminal narrowing Surgical History S/P sinus surgery Colonoscopy - MAC (04/07/13) 04/2022 DR. Scar ALLISON; 2 TUBULAR ADENOMAS Arthroplasty of knee (~2007) 2007 RIGHT, DR. ESCAMILLA 2013 Status post total knee replacement using cement (09/01/13) Family History (Updated 07/03/23 @ 18:55 by Rina Romano) Mother Cancer Father Stroke Alcohol abuse Sister No problems noted. Sister , age 60 Cancer Brother Alcohol abuse Substance abuse Brother No problems noted. Brother Heart disease Maternal Grandfather Stroke Paternal Grandfather Stroke Son Depression Son No problems noted. Social History (Updated 07/03/23 @ 18:54 by Rina Romano) Smoking/Tobacco Use Status: Never Second Hand Exposure: Yes Smoking risk assessment performed?: Yes Alcohol Intake: never Details: one drink a year. Drug use: Never Substance use type: does not use Adopted: No Caregiver/Support person: No Foster care: No Housing: house Number of Children: 2 number of grandchildren: 1 Education Level: high school Do you need help understanding health information?: Often Pets and animals: Yes Pets and animals: cat(s) and dog(s) Sexually active: No Do you think of yourself as: straight/heterosexual Current gender identity: male What is your relationship status?: How often do you talk on the phone with friends or family?: never How often do you get together with friends or relatives?: three or more times per week How often do you attend worship or baptist services?: 4 or more times per year Do you belong to any clubs or organized social groups?: no Panel score (0-1 are the most socially isolated patients): 3 What type of physical activity do you participate in: other Details: Cardio Rehab Duration: 45-60 minutes/day Frequency: 1-2 times per week Seema/Amish: [facility] Special seema needs: No Agree to transfusion: Yes Seatbelt use: always Drive intox or ride w/intox distribution driver: No Working smoke detector in home: Yes Carbon monox detector in home: Yes Firearms in home: No Do you feel safe at home: Yes Do you feel safe in your relationship?: Yes Victim of physical abuse: No Victim of emotional abuse: No Victim of sexual abuse: No Would you like helpful sources: No Discharge Plan Disposition Patient Disposition: Home Condition: Stable Discharge Details Clinical Impression: Urinary tract infection, Abdominal pain, Shortness of breath Primary Care Provider: Aide Boles ED Provider: Edson Zhu [place] Meds and New Rx's Prescriptions: New levofloxacin 750 mg tablet 750 mg PO DAILY Qty: 5 0RF No Action Systane Complete 0.6 % drops 1 drp ophthalmic (eye) TID PRN artificial tears ointment Ointment 1 applic ophthalmic (eye) HS latanoprost 0.005 % drops 1 drp ophthalmic (eye) DAILY lurasidone [Latuda] 60 mg tablet 60 mg PO DAILY clomipramine 50 mg capsule 50 mg PO HS methylphenidate HCl [Concerta] 54 mg tablet extended release 24hr 54 mg PO QAM gabapentin [Neurontin] 800 MG tablet 400 mg PO BID Qty: 270 Patient Comments: 04/02/13 TAKING 400 MG BID. nuria Myrbetriq 50 MG tablet extended release 24 hr 50 mg PO DAILY Qty: 90 4RF acetaminophen 500 mg tablet 500 mg PO Q6H PRN ibuprofen 400 mg tablet 400 mg PO PRN aspirin 81 mg tablet,delayed release (DR/EC) 81 mg PO DAILY Qty: 90 3RF atorvastatin 40 mg tablet 40 mg PO DAILY Qty: 90 3RF bisoprolol fumarate 5 mg tablet 5 mg PO DAILY Qty: 90 3RF cholecalciferol (vitamin D3) 50 mcg (2,000 unit) capsule 100 mcg PO DAILY Qty: 180 3RF magnesium oxide 500 mg capsule 500 mg PO DAILY Qty: 90 12RF pantoprazole 40 mg tablet,delayed release (DR/EC) 40 mg PO DAILY Qty: 90 12RF riboflavin (vitamin B2) 100 mg tablet 100 mg PO BID Qty: 180 12RF tolterodine [Detrol LA] 4 mg capsule,extended release 24hr 4 mg PO DAILY Qty: 90 12RF nitroglycerin 0.4 mg tablet, sublingual 0.4 mg SL Q5M PRN (Reason: chest pain) Qty: 30 2RF calcium carbonate 500 mg calcium (1,250 mg) Tablet,Chewable 2 mg PO PRN PRN Discharge Instructions Instructions: Urinary Tract Infection in Men (ED) Additional Instructions: your blood work and cat scan did not show any significant concerning findings, you do have evidence of a urinary tract infection follow up with your primary care provider within 1-2 weeks if symptoms continue if you feel more ill, have severe worsening pain or new symptoms such as persistent vomiting return to the emergency department
[2023-08-30] MEDS: Mylanta Suspension 30 ML CUP PO (20:27)
[2023-08-30] MEDS: Normal Saline - Diluent 50 ML VIAL IJ (20:49)
[2023-08-30] MEDS: Omnipaque 350 MG/ML 100 ML BTL IJ (20:50)
[2023-08-30 20:56] LABS: Abs Immature Grans 0.03 10^3/uL (0.0-0.06); Absolute Basophil Count 0.02 10^3/uL (0.0-0.2); Absolute Lymphocyte Count 0.35 10^3/uL (1.2-3.4); Absolute Monocyte Count 0.37 10^3/uL (0.1-0.8); Absolute Neutrophil Count 5.09 10^3/uL (1.2-6.7); Basophils % 0.3; Eosinophils % 1.7; HCT 41.1 % (40.0-50.0); HGB 13.9 g/dL (13.5-17.5); Immature Grans % 0.5; Lymphocytes % 5.9; MCH 29.3 pg (27.0-33.0); MCHC 33.8 % (32.0-36.0); MCV 87 fL (80-95); MPV 10.1 fL (8.0-11.0); Monocytes % 6.2; Neutrophils % 85.4; Platelet Count 133 10^3/uL (130-400); RBC 4.75 10^6/uL (4.36-5.78); RDW 13.4 % (11.8-14.1); RDW-SD 42.5 fL; WBC 5.96 10^3/uL (4.4-10.8)
[2023-08-30 21:04] LABS: ALT 30 U/L (16-63); AST 16 U/L (15-37); Albumin 3.4 g/dL (3.4-5.0); Alkaline Phosphatase 88 U/L (46-116); Anion Gap 8.4 mmol/L (3-11); BUN 25 mg/dL (7-18); Bilirubin, Total 0.7 mg/dL (0.2-1.0); CO2 25.6 mmol/L (21.0-32.0); CREATININE 0.8 mg/dL (0.70-1.30); Calcium 8.9 mg/dL (8.5-10.1); Chloride 103 mmol/L (98-107); Estimated GFR 94.62 (mL/min/1.73m2); Glucose 109 mg/dL (74-106); Lipase 20 U/L (16-77); Magnesium 2.2 mg/dL (1.8-2.4); PTT Activated 26.3 sec (23.6-32.8); Potassium 4.1 mmol/L (3.5-5.1); Prothrombin Time 10.4 sec (9.1-11.1); Sodium 137 mmol/L (136-145); Total Protein 6.7 g/dL (6.4-8.2)
[2023-08-30 21:09] LABS: Troponin I < 50 ng/L (< or =60)
[2023-08-30 21:11] LABS: Bilirubin Negative (Negative); Blood Negative (Negative); Clarity Clear (Clear); Glucose Negative (Negative); Ketones Negative (Negative); Leukocyte Esterase Small (Negative); Nitrite Positive (Negative); Specific Gravity 1.025 (1.005-1.025); Urobilinogen 0.2 mg/dL (Up to 0.2); pH 5.5 (5-8)
[2023-08-30 21:16] LABS: Bacteria Moderate HPF (Negative); C & S Indicated? Yes; Casts Negative LPF (Negative); Crystals Negative HPF (Negative); Epithelial Cells Few HPF (Negative); Mucus Negative (Negative); RBC Negative HPF (0-2); WBC 20-50 HPF (0-5)
--- NOTE | 2023-08-30 22:02 | DI.VRAD_ITS ---
PROCEDURE INFORMATION: Exam: CTA Chest With Contrast CTA Abdomen With Contrast Exam date and time: 08/30/2023 8:49 PM Age: 73 years old Clinical indication: Shortness of breath; Other: Abd pain TECHNIQUE: Imaging protocol: Computed tomographic angiography of the chest with contrast. Exam focused on the arteries. Computed tomographic angiography of the abdomen with contrast. Exam focused on the arteries. 3D rendering (Not supervised by radiologist): MIP and/or 3D reconstructed images were created by the technologist. Contrast material: 350; Contrast volume: 88 ml; Contrast route: INTRAVENOUS (IV); COMPARISON: CT CHEST PE CTA 07/09/2021 12:02 PM FINDINGS: Tubes, catheters and devices: Left sacral neurostimulator device noted. VASCULATURE: Pulmonary arteries: Normal. No pulmonary emboli. Aorta: Moderate atherosclerotic calcification of the aorta. No evidence of aneurysm or dissection. Celiac trunk and mesenteric arteries: Common origin of the celiac and superior mesenteric arteries. No occlusion or significant stenosis. Renal arteries: No occlusion or significant stenosis. CHEST: Lungs: Unremarkable. No consolidation. No masses. Pleural spaces: Unremarkable. No pneumothorax. No pleural effusion. Heart: Small pericardial effusion. Heart is normal in size. ABDOMEN AND PELVIS: Liver: No mass. Gallbladder and bile ducts: Unremarkable. No calcified stones. No ductal dilation. Pancreas: Unremarkable. No mass. No ductal dilation. Spleen: Unremarkable. No splenomegaly. Adrenal glands: Unremarkable. No mass. Kidneys and ureters: 10 mm density in the lower left kidney may represent caliceal stone or early excretion of contrast. 1.4 cm simple cortical cyst of the left kidney noted. Right kidney appears unremarkable. No hydronephrosis. Stomach and bowel: Unremarkable. No obstruction. No mucosal thickening. Intraperitoneal space: Unremarkable. No free air. No significant fluid collection. Lymph nodes: Unremarkable. No enlarged lymph nodes. Bones/joints: Mild thoracolumbar scoliosis. Multilevel degenerative disc changes noted, most severe in the lumbar spine. No vertebral body compression or acute fracture. Soft tissues: Unremarkable. IMPRESSION: 1. No evidence of aortic aneurysm or dissection. Moderate atherosclerotic changes noted 2. Small pericardial effusion 3. Suspected mild left nephrolithiasis 4. Severe degenerative changes of the lumbar spine. Dictated and Authenticated by: Chauncey Gore MD. Ordering:PASTORA Sandhu MD
[2023-08-30] MEDS: levoFLOXacin 500 MG, levoFLOXacin 250 MG 750 MG PO (22:35)
--- NOTE | 2023-09-02 07:23 | NUR.NOTE ---
Accessed chart to determine whether or not pt on antibiotic for culture. Nursing Note:
== END 2023-08-30 22:40 | disposition home or self-care (01) ==
PROVIDERS: Emergency Provider Emergency Medicine; PCP Nurse Practitioner Family
DX: N39.0 Urinary tract infection, site not specified (principal); R06.02 Shortness of breath; I25.2 Old myocardial infarction; R94.31 Abnormal electrocardiogram [ECG] [EKG]; Z79.82 Long term (current) use of aspirin
CPT/HCPCS: 36415; 71275; 74177; 80053; 83690; 87077; 93005; 99285; 81003; 81015; 83735; 84484; 85025; 85610; 85730; 87086; 87186; 93010; 99284; J3490

== ENCOUNTER 2023-09-27 13:00 | Outpatient (RCR) | payer SELFPAY ==
[2023-08-30 00:17] VITALS: BP 124/75; PULSE 77
[2023-09-06 13:25] VITALS: BP 115/67; PULSE 76
[2023-09-13 15:28] VITALS: BP 120/65; PULSE 87
[2023-09-20 13:37] VITALS: BP 112/63; PULSE 78
[2023-09-27 13:02] VITALS: BP 124/67; PULSE 76
== END 2023-09-27 23:59 | disposition home or self-care (01) ==
LOC: CR 13:00
PROVIDERS: PCP Nurse Practitioner Family; Visit Provider Internal Medicine Cardiovascular Disease
DX: R69 Illness, unspecified (principal)

== ENCOUNTER 2023-11-27 13:24 | Outpatient (RCR) | payer SELFPAY ==
[2023-10-30 14:16] VITALS: BP 118/69; PULSE 75
[2023-11-22 13:11] VITALS: BP 118/67; PULSE 78
[2023-11-27 13:48] VITALS: BP 120/67; PULSE 74
== END 2023-11-27 23:59 | disposition home or self-care (01) ==
LOC: CR 13:24
PROVIDERS: PCP Nurse Practitioner Family; Visit Provider Internal Medicine Cardiovascular Disease
DX: R69 Illness, unspecified (principal)

== ENCOUNTER 2023-11-29 13:10 | Outpatient (RCR) | payer SELFPAY ==
[2023-11-28 00:13] VITALS: BP 120/67; PULSE 74
== END 2023-12-28 23:59 | disposition home or self-care (01) ==
LOC: CR 13:10
PROVIDERS: PCP Nurse Practitioner Family; Visit Provider Internal Medicine Cardiovascular Disease
DX: R69 Illness, unspecified (principal)

== ENCOUNTER → 2023-12-04 08:50 | Outpatient (BNVA) | payer MEDICARE, SELFPAY | PROVIDERS: PCP Nurse Practitioner Family; Referring Provider Nurse Practitioner Family; Visit Provider Internal Medicine Cardiovascular Disease | DX: I25.10 Atherosclerotic heart disease of native coronary artery without angina pectoris (principal) | CPT/HCPCS: 99213 ==

== ENCOUNTER 2024-06-23 14:29 | Outpatient (CLI) | payer MEDICARE, SELFPAY ==
--- NOTE | 2024-06-23 09:30 | DI.RAD_ITS ---
Exam(s) XR KNEE LT 3V AP,LAT,ERYN EXAM: XR KNEE LT 3V AP,LAT,ERYN CLINICAL HISTORY: LEFT KNEE PAIN. TECHNIQUE: 2D digital imaging was performed of the left knee. Three images were obtained. AP, late ral and PA tunnel views were obtained. COMPARISON: CR LEFT KNEE 3 VIEW COMPLETE from 05/19/2010 FINDINGS: BONES: No acute fracture is present. No bony destructive lesion is seen. JOINTS: There is marked narrowing of the medial femoral tibial joint. Endplate osteophytes are seen both the medial femoral tibial joint in the patellofemoral joint. There is a small joint effusion. No loose body. SOFT TISSUE: Normal. IMPRESSION: Osteoarthritis of the left knee which is marked in the medial femoral tibial joint. DATA REPOSITORY: RADIATION DOSE DELIVERED:
--- NOTE | 2024-06-23 09:30 | DI.RAD_ITS ---
Exam(s) XR KNEE RT 2V AP,LAT EXAM: XR KNEE RT 2V AP,LAT CLINICAL HISTORY: RIGHT KNEE PAIN S/P TKR. TECHNIQUE: 2D digital imaging was performed. Two images were obtained. AP and lateral views were ob tained. COMPARISON: CR RIGHT KNEE LIMITED 1 OR 2 VIEW from 09/04/2014 FINDINGS: BONES: There are stable post operative changes of a right total knee arthroplasty present. No fractu re or dislocation. JOINTS: The orthopedic hardware is in good position. No evidence of hardware loosening. Small joint effusion. SOFT TISSUE: Normal. IMPRESSION: Stable right total hip arthroplasty. DATA REPOSITORY: RADIATION DOSE DELIVERED:
--- NOTE | 2024-06-23 10:00 | DI.RAD_ITS ---
Exam(s) XR HIP PELVIS ADULT BL EXAM: XR HIP PELVIS ADULT BL CLINICAL HISTORY: Bilateral hip pain. TECHNIQUE: 2D digital imaging was performed. COMPARISON: CT CT CHEST PE ABD PELVIS W from 08/30/2023 FINDINGS: 3 views No evidence of pelvic nor hip fracture. No significant degenerative changes seen in the hips. Both hips exhibit normal joint space and no osteophytes nor degenerative subarticular cysts. No significa nt osseous lesions. Bone density appears normal. Incidentally noted is a left trans sacral stimulator wire. IMPRESSION: No significant osseous findings in the pelvis and hips. DATA REPOSITORY: RADIATION DOSE DELIVERED:
== END 2024-06-23 14:30 | disposition home or self-care (01) ==
LOC: DIORS 14:29
PROVIDERS: PCP Nurse Practitioner Family; Referring Provider Nurse Practitioner Family; Visit Provider Physician Assistant
DX: M25.851 Other specified joint disorders, right hip; M25.852 Other specified joint disorders, left hip; M17.12 Unilateral primary osteoarthritis, left knee; T84.84XA Pain due to internal orthopedic prosthetic devices, implants and grafts, initial encounter; Z96.651 Presence of right artificial knee joint
CPT/HCPCS: 20610; 73521; 73562; 99214; J1010; 73560

== ENCOUNTER 2024-07-08 01:00 | Outpatient (CLI) | payer MEDICARE, SELFPAY ==
--- NOTE | 2024-07-08 07:00 | DI.NM_ITS ---
Exam(s) NM BONE SCAN 3 PHASE EXAM: NM BONE SCAN 3 PHASE CLINICAL HISTORY: PAIN, ? R TKA LOOSENING,[id number]. TECHNIQUE: Injected Dose: 25 mCi Tc-99m MDP COMPARISON: CT CT CHEST PE ABD PELVIS W from 08/30/2023 FINDINGS: Perfusion images: There is symmetric appearance of both knee regions on anterior posterior perfusion images. Blood Pool images: Photopenic zone in the right knee consistent with prosthesis components noted. No significant uptake Delayed images: There is significant focal uptake in the medial compartment of left knee consistent w ith degenerative changes as seen on prior radiographs. In the opposite-right knee there is no significant radiopharmaceutical uptake around the anterior asp ect of the femoral component. There is mild symmetrical uptake seen on both sides of the femoral com ponent. Also on both sides of the tibial plateau component. Other: Increased uptake in the lower right cervical spine is most probably degenerative facet arthrop athy. Also single focus of increased uptake in the left side of the lower thoracic spine is also pro bably degenerative. IMPRESSION: 1. Uptake consistent with degenerative change in the medial compartment of the left knee. 2. There is mild increased uptake subjacent to the tibial component of the prosthesis on both sides the tibial plateau. Possibly significant with respect to loosening. DATA REPOSITORY:
--- NOTE | 2024-07-08 07:00 | DI.CT_ITS ---
Exam(s) CT LOWER EXTREMITY RT WO EXAM: CT LOWER EXTREMITY RT WO CLINICAL HISTORY: PAIN, ? R TKA LOOSening,z96.651,t84.84xa. TECHNIQUE: Imaging Protocol: Axial computed tomography images with coronal and sagittal reformatted images were created and reviewed. CONTRAST MATERIAL: Intravenous: None COMPARISON: CR XR KNEE RT 2V AP,LAT from 06/23/2024 CR XR KNEE LT 3V AP,LAT,ERYN from 06/23/2024 NM NM BONE SCAN 3 PHASE from 07/08/2024 FINDINGS: There is a small joint effusion. There is total knee prosthesis including patellar resurfacing. No evidence of fracture. No obvious loosening. No osseous lesions. IMPRESSION: No obvious loosening of the components of the right knee prosthesis RADIATION DOSE DELIVERED: 186.11mGy.cm Total DLP DATA REPOSITORY: All CT scans at this facility are submitted to the National Radiology Data Registry (NRDR) Dose Index Registry (DIR) with the [employer] ([employer]). RADIATION OPTIMIZATION: All CT scans at this facility use at least one of these dose optimization te chniques: automated exposure control; mA and/or kV adjustment per patient size (includes targeted exa ms where dose is matched to clinical indication); or iterative reconstruction.
[2024-07-08 10:04] LABS: HCT 39.9 % (40.0-50.0); HGB 13.1 g/dL (13.5-17.5); MCH 29.4 pg (27.0-33.0); MCHC 32.8 % (32.0-36.0); MCV 90 fL (80-95); MPV 10.2 fL (8.0-11.0); Platelet Count 137 10^3/uL (130-400); RBC 4.45 10^6/uL (4.36-5.78); RDW 13.2 % (11.8-14.1); RDW-SD 43.3 fL; WBC 5.69 10^3/uL (4.4-10.8)
[2024-07-08 10:07] LABS: ESR 18 mm/hr (0-20)
[2024-07-08 10:17] LABS: Anion Gap 6.8 mmol/L (3-11); BUN 17 mg/dL (7-18); C-Reactive Protein < 0.50 mg/dL (<or=0.5); CO2 29.2 mmol/L (21.0-32.0); CREATININE 1.1 mg/dL (0.70-1.30); Calcium 9.1 mg/dL (8.5-10.1); Calculated LDL 67 mg/dL (<100); Chloride 106 mmol/L (98-107); Cholesterol 139 mg/dL (<200); Estimated GFR 71.77 (mL/min/1.73m2); Glucose 131 mg/dL (74-106); HDL Cholesterol 47 mg/dL (40-60); Potassium 4.2 mmol/L (3.5-5.1); Sodium 142 mmol/L (136-145); Triglyceride 125 mg/dL (<150)
== END 2024-07-08 01:20 ==
LOC: DI 01:00
PROVIDERS: PCP Nurse Practitioner Family; Visit Provider Student in an Organized Health Care Education/Training Program
DX: Z96.651 Presence of right artificial knee joint (principal); T84.84XA Pain due to internal orthopedic prosthetic devices, implants and grafts, initial encounter; F41.8 Other specified anxiety disorders; I25.10 Atherosclerotic heart disease of native coronary artery without angina pectoris; E55.9 Vitamin D deficiency, unspecified; K21.9 Gastro-esophageal reflux disease without esophagitis; M54.2 Cervicalgia
CPT/HCPCS: 80048; 80061; 85027; 85652; 73700; 78315; 86140

== ENCOUNTER → 2024-08-21 09:23 | Outpatient (BNVA) | payer MEDICARE, SELFPAY | PROVIDERS: PCP Nurse Practitioner Family; Referring Provider Nurse Practitioner Family; Visit Provider Student in an Organized Health Care Education/Training Program | DX: M17.12 Unilateral primary osteoarthritis, left knee (principal); T84.84XA Pain due to internal orthopedic prosthetic devices, implants and grafts, initial encounter; Z96.651 Presence of right artificial knee joint | CPT/HCPCS: 99214 ==

== ENCOUNTER 2024-09-03 10:02 | Outpatient (CLI) | payer MEDICARE, SELFPAY ==
--- NOTE | 2024-09-03 13:00 | DI.RAD_ITS ---
Exam(s) XR CHEST 2V PA LATERAL EXAM: XR CHEST 2V PA LATERAL CLINICAL HISTORY: cough, r/o pneumonia, R05.9 TECHNIQUE: 2D digital imaging was performed. Two views. COMPARISON: CR CHEST 2 VIEWS PA,LAT from 07/26/2015 CR,XR XR PORTABLE CHEST AP from 07/09/[address] CHEST PE ABD PELVIS W from 08/30/2023 FINDINGS: HEART: Normal size. Aorta: Not dilated. PULMONARY VASCULATURE: Normal. MEDIASTINUM: Unremarkable. LUNGS: Clear. No focal infiltrate or evidence of pulmonary edema PLEURAL SPACE: No pleural effusion or pneumothorax. BONE:Unremarkable for age. SOFT TISSUES: Unremarkable. IMPRESSION: No acute abnormality. DATA REPOSITORY: RADIATION DOSE DELIVERED:
== END 2024-09-03 10:22 ==
LOC: DI 10:03
PROVIDERS: PCP Nurse Practitioner Family; Visit Provider Physician Assistant
DX: R05.9 Cough, unspecified (principal)
CPT/HCPCS: 71046

== ENCOUNTER 2024-09-23 02:38 | Outpatient (CLI) | payer MEDICARE, SELFPAY ==
[2024-09-23 14:02] LABS: HCT 40.1 % (40.0-50.0); HGB 12.8 g/dL (13.5-17.5); MCH 29.4 pg (27.0-33.0); MCHC 31.9 % (32.0-36.0); MCV 92 fL (80-95); MPV 9.9 fL (8.0-11.0); Platelet Count 176 10^3/uL (130-400); RBC 4.36 10^6/uL (4.36-5.78); RDW-SD 43.7 fL; WBC 6.46 10^3/uL (4.4-10.8)
[2024-09-23 14:31] LABS: Anion Gap 4.7 mmol/L (3-11); BUN 15 mg/dL (7-18); CO2 31.3 mmol/L (21.0-32.0); CREATININE 1.1 mg/dL (0.70-1.30); Calcium 9.1 mg/dL (8.5-10.1); Chloride 105 mmol/L (98-107); Estimated GFR 71.32 (mL/min/1.73m2); Glucose 100 mg/dL (74-106); Potassium 4.4 mmol/L (3.5-5.1); Sodium 141 mmol/L (136-145)
== END 2024-09-23 02:39 | disposition home or self-care (01) ==
LOC: LBO 02:38
PROVIDERS: PCP Nurse Practitioner Family; Visit Provider Student in an Organized Health Care Education/Training Program
DX: M17.12 Unilateral primary osteoarthritis, left knee (principal); Z01.818 Encounter for other preprocedural examination
CPT/HCPCS: 36415; 80048; 85027; 99024

== ENCOUNTER 2024-09-23 08:55 | Outpatient (CLI) | payer MEDICARE, SELFPAY ==
--- NOTE | 2024-09-23 08:30 | DI.RAD_ITS ---
Exam(s) XR KNEE LT 1V XR STANDING ALIGNMENT EXAM: XR STANDING ALIGNMENT and XR knee LT 1 V CLINICAL HISTORY: LEFT KNEE DJD. TECHNIQUE: 2D digital imaging was performed. Five images were obtained. COMPARISON: CR XR KNEE RT 2V AP,LAT from 06/23/2024 CR XR HIP PELVIS ADULT BL from 06/23/2024 CR XR KNEE LT 3V AP,LAT,ERYN from 06/23/2024 FINDINGS: BONES: There is a nerve stimulating device in the pelvis. The hips are well maintained. In the righ t knee, there is again seen a total knee arthroplasty. It appears grossly unremarkable on this singl e image. The left knee, there is marked narrowing of the medial femoral tibial joint. Osteophytes i s seen in the medial femoral tibial and patellofemoral joint. There is a small left joint effusion. The ankles are well maintained.The right lower extremity is 2 cm longer than the left lower extremit y. SOFT TISSUE: Normal. IMPRESSION: Moderate degenerative changes seen in the left knee. DATA REPOSITORY: RADIATION DOSE DELIVERED:
== END 2024-09-23 08:56 | disposition home or self-care (01) ==
LOC: DIORS 08:56
PROVIDERS: PCP Nurse Practitioner Family; Visit Provider Physician Assistant
DX: M17.12 Unilateral primary osteoarthritis, left knee (principal); Z01.818 Encounter for other preprocedural examination
CPT/HCPCS: 73560; 77073

== ENCOUNTER 2024-09-30 09:47 | Day surgery (SDC) | payer MEDICARE, SELFPAY ==
[2024-09-30] VITALS (21 sets, daily range): BP systolic 92–123; BP diastolic 40–65; PULSE 72–83; RESP 13–26; TEMP 36.3–36.5; O2SAT 97–100; BMI 34.5
[2024-09-30] MEDS: Lactated Ringers 1,000 ML 80 ML IV (10:33)
[2024-09-30] MEDS: Acetaminophen 500 MG TAB 1000 MG PO (10:41)
[2024-09-30] MEDS: Gabapentin 300 MG CAP PO (10:41)
[2024-09-30] MEDS: Celecoxib 200 MG CAP 400 MG PO (10:42)
--- NOTE | 2024-09-30 11:13 | W.ANESPRE ---
General Info Date of Service Date Performed: 09/30/24 Height: 5 ft 10 in Weight: 109.3 kg Body Mass Index (BMI): 34.5 Surgical Procedure: Operation Date: 09/30/24 13:25 Proposed Procedure Side Surgeon p Knee Total Arthroplasty, Cementless CR Left Neptali Huitron MD Meds Allergies and Home Medications Allergies Allergy/AdvReac Type Severity Reaction Status Date / Time Penicillins Allergy Unknown Unknown Verified 09/30/24 10:34 metoprolol AdvReac fatigue Verified 09/30/24 10:34 Home Medication ?Medication ?Instructions ?Recorded gabapentin 800 mg tablet 400 mg PO BID #270 tab-caps 01/28/13 (Neurontin) mirabegron 50 mg tablet,extended 50 mg PO DAILY #90 tab-caps 09/14/17 release 24 hr (Myrbetriq) methylphenidate HCl 54 mg 54 mg PO QAM 06/10/19 tablet,extended release 24 hr (Concerta) acetaminophen 500 mg tablet 500 mg PO Q6H PRN 10/02/19 calcium carbonate 2 mg PO PRN PRN 02/19/21 artificial tears ointment 1 applic ophthalmic (eye) HS 07/19/21 latanoprost 0.005 % eye drops 1 drp ophthalmic (eye) DAILY 07/19/21 propylene glycol 0.6 % eye drops 1 drp ophthalmic (eye) TID PRN 07/19/21 (Systane Complete) ibuprofen 400 mg tablet 400 mg PO PRN 11/15/21 clomipramine 50 mg capsule 50 mg PO HS 10/27/22 lurasidone 60 mg tablet (Latuda) 60 mg PO DAILY 10/27/22 nitroglycerin 0.4 mg sublingual 0.4 mg sublingual Q5M PRN chest 08/28/23 tablet pain #30 tabs aspirin 81 mg tablet,delayed 81 mg PO DAILY #90 tabs 04/29/24 release atorvastatin 40 mg tablet 40 mg PO DAILY #90 tabs 04/29/24 bisoprolol fumarate 5 mg tablet 5 mg PO DAILY #90 tabs 04/29/24 cholecalciferol (vitamin D3) 50 100 mcg (2 x 50 mcg (2,000 unit)) 04/29/24 mcg (2,000 unit) capsule PO DAILY #180 caps magnesium oxide 500 mg capsule 500 mg PO DAILY #90 caps 08/04/24 pantoprazole 40 mg tablet,delayed 40 mg PO DAILY #90 tab-caps 08/04/24 release riboflavin (vitamin B2) 100 mg 100 mg PO BID #180 tabs 08/04/24 tablet tolterodine 4 mg capsule,extended 4 mg PO DAILY #90 caps 08/04/24 release 24 hr (Detrol LA) benzonatate 100 mg capsule 100 mg PO TID PRN cough #14 caps 09/02/24 Current Visit Medications: Current Medications Generic Name Dose Route Start Last Admin Trade Name Freq PRN Reason Stop Dose Admin Acetaminophen 1,000 mg 09/30/24 06:00 09/30/24 10:41 Acetaminophen 500 Mg Tab PO 09/30/24 23:59 1,000 mg PREOP TA Administration Celecoxib 400 mg 09/30/24 06:00 09/30/24 10:42 Celecoxib 200 Mg Cap PO 09/30/24 23:59 400 mg PREOP TA Administration Gabapentin 300 mg 09/30/24 06:00 09/30/24 10:41 Gabapentin 300 Mg Cap PO 09/30/24 23:59 300 mg PREOP TA Administration Hydromorphone HCl 0.5 mg 09/30/24 10:57 Hydromorphone 2 Mg/Ml Syr IVP 10/30/24 10:56 Q2H PRN PRN Ringer's Solution 1,000 mls @ 80 mls/hr 09/30/24 06:00 09/30/24 10:33 IV 09/30/24 23:59 80 mls/hr INFUSION TA Administration Cefazolin Sodium/Dextrose 2 gm in 50 mls @ 100 mls/hr 09/30/24 06:00 Ancef Duplex IVPB 09/30/24 23:59 PREOP TA Tranexamic Acid/Sodium Chloride 1,000 mg in 100 mls @ 600 mls/hr 09/30/24 06:00 IVPB 09/30/24 23:59 PREOP TA Cefazolin Sodium/Dextrose 1 gm in 50 mls @ 100 mls/hr 09/30/24 12:00 Ancef Duplex IVPB 10/01/24 04:29 Q8H TA IV Miscellaneous Supplies 1 each 09/30/24 06:00 Iv Access IV 09/30/24 23:59 DIRECTED TA Oxycodone HCl 0 mg 09/30/24 10:57 Oxycodone 5 Mg Tab PO 10/30/24 10:56 Q3H PRN PRN Pain Sodium Chloride 0 ml 09/30/24 06:00 Normal Saline Flush 10 Ml Syr IV 09/30/24 23:59 PRN PRN Sodium Chloride 0 ml 09/30/24 06:00 Normal Saline 10 Ml Vial IJ 09/30/24 23:59 DIRECTED PRN Sterile Water 0 ml 09/30/24 06:00 Water,Injection,Sterile 10 Ml Vial IJ 09/30/24 23:59 DIRECTED PRN PFSH Active Problems Active Problems: Problem Status Onset Code Painful total knee replacement, right Acute T84.84XA, Z96.651 Femoroacetabular impingement of both hips Acute M25.851, M25.852 Left knee DJD Chronic M17.12 Pain of right heel Acute M79.671 Urinary incontinence Acute R32 Right-sided low back pain without sciatica Acute M54.50 Tubular adenoma of colon Chronic D12.6 Coronary artery disease Chronic I25.10 Cervicalgia Acute M54.2 Dry eye syndrome of both eyes Acute H04.123 Vitamin D deficiency Acute E55.9 Urgency incontinence Chronic 01/12/16 N39.41 Tremor Chronic R25.1 Rosacea Chronic L71.9 Lung mass Chronic 07/26/15 R91.8 Increased BMI (body mass index) Chronic 08/13/17 R63.8 GERD (gastroesophageal reflux disease) Chronic 03/11/15 K21.9 Chronic fatigue Chronic 07/29/15 R53.82 Arthritis Chronic 01/26/16 M19.90 Anxiety and depression Chronic F41.8 Sleep apnea Chronic G47.30 Medical History Medical History (Updated 09/30/24 @ 11:24 by Jada Zelaya RN) Right anterior shoulder pain (10/25/16) Nasal turbinate hypertrophy Deviated nasal septum Chronic rhinitis 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 states he is being followed by Dr. Robertson @ [facility] Elevated PSA, less than 10 ng/ml (08/13/17) PSA 7.6: negative prostrate biopsy 10/14 at [facility] Degeneration of cervical intervertebral disc C5/6 foraminal narrowing Surgical History Surgical History (Updated 09/30/24 @ 11:24 by Jada Zelaya RN) S/P placement of nerve stimulator Bladder stimulator in situ History of cardiac cath S/P sinus surgery (~2017) Colonoscopy - MAC (04/07/13) 04/2022 DR. Scar ALLISON; 2 TUBULAR ADENOMAS Arthroplasty of knee (~2007) RIGHT, DR. ESCAMILLA 2013 2007 right knee arthroscopy - partial meniscectomy. Status post total knee replacement using cement (09/01/13) Right Tobacco Smoking/Tobacco Use Status: Never Passive smoking exposure: Yes Second hand exposure: Yes Alcohol Alcohol Intake: never Details: one drink a year. Substance Use Substance use: Never Substance use type: does not use Vital Signs and Lab Results Vital Signs Most Recent Vital Signs in EMR: Most Recent Vital Signs Temp Pulse Resp BP Pulse Ox 36.3 C L 78 16 123/61 98 09/30/24 10:24 09/30/24 10:24 09/30/24 10:24 09/30/24 10:24 09/30/24 10:24 Lab Results Blood Type / Crossmatch: No Data to Display Complete Blood Count: White Blood Count 6.46 10^3/uL (4.4-10.8) 09/23/24 13:55 Red Blood Count 4.36 10^6/uL (4.36-5.78) 09/23/24 13:55 Hemoglobin 12.8 g/dL (13.5-17.5) L 09/23/24 13:55 Hematocrit 40.1 % (40.0-50.0) 09/23/24 13:55 Platelet Count 176 10^3/uL (130-400) 09/23/24 13:55 Complete Metabolic Panel: Sodium 141 mmol/L (136-145) 09/23/24 13:55 Potassium 4.4 mmol/L (3.5-5.1) 09/23/24 13:55 Chloride 105 mmol/L (98-107) 09/23/24 13:55 Carbon Dioxide 31.3 mmol/L (21.0-32.0) 09/23/24 13:55 BUN 15 mg/dL (7-18) 09/23/24 13:55 Creatinine 1.1 mg/dL (0.70-1.30) 09/23/24 13:55 Est GFR (CKD-EPI 2020) 71.32 (mL/min/1.73m2) 09/23/24 13:55 Calcium 9.1 mg/dL (8.5-10.1) 09/23/24 13:55 Glucose 100 mg/dL (74-106) 09/23/24 13:55 Liver Function Panel: No Data to Display Coagulation Panel: No Data to Display Cardiac Panel: No Data to Display Arterial Blood Gas: No Data to Display Venous Blood Gas: No Data to Display Pancreas Panel: No Data to Display Thyroid Panel: No Data to Display Infectious Disease: No Data to Display Blood Cultures: No Data to Display Toxicology Panel: No Data to Display Imaging and Studies Imaging and Studies Study information below may be from another EMR and interpreted by another provider. Please see original notes in EMR for more complete details. EKG Summary: DATE/TIME OF SERVICE: 07/09/21 1014 : 2PERFORMING LOCATION: ER APPROVED REPORT Exam: Resting ECG Reason for Exam: chest pain Patient Location: E HR:73 bpm ECG Measurements Heart Rate 73 AXIS SC 150 P 53 QRSd 89 QRS 63 QT 389 T14 QTc 431 Conclusion Sinus rhythm...normal P axis, V-rate 60- 99 Posterior infarct, old...prom R T, V1-V3 or Q >40mS, V7-V9 Stress Test Summary: Stress ECG Conclusion 1. Resting electrocardiogram showed rightward axis, early R wave transition 2. The patient exercised on Dre protocol and completed a workload of 5.67 METS, limited by dyspnea 3. Rapid increase in heart rate with exercise, possibly due to withholding of his beta-davy. Peak heart rate was greater than 100% of predicted for age 4. Mildly hypertensive blood pressure response to exercise 5. Electrocardiographically there was no evidence of myocardial ischemia 6. Sporadic atrial premature beats were seen Culver Treadmill Score is 3.6 which is Moderate risk. Echocardiogram Summary: Date of study: 11/07/2017 Transthoracic Echocardiography M-mode, complete 2D, complete spectral Doppler, and color Doppler *STUDY CONCLUSIONS* Summary: 1. Left ventricle: The cavity size was normal. Wall thickness was increased in a pattern of moderate LVH. Systolic function was at the lower limits of normal. The estimated ejection fraction was 50-55%. Hypokinesis of the mid-apicalinferolateral, inferior, and inferoseptal myocardium. 2. Right ventricle: The cavity size was normal. Systolic function was normal. 3. Inferior vena cava: The vessel was patent and normal in size. The respirophasic diameter changes were in the normal range (greater than or equal to 50%), consistent with normal central venous pressure. Anesthesia Assessment and Plan Anesthesia History Personal History: No History of Anesthesia Complications Family History: No Family History of Anesthesia Complications Exercise Tolerance Exercise Tolerance: Metabolic Equivalents>4 Pertinent Negatives Pertinent Negatives: No Symptoms of GERD, No Major Pulmonary Symptoms or Complaints and No History of CVA/TIA Cardiac & Pulmonary Exam Cardiac Exam: Normal S1/S2 Heart Sounds Pulmonary Exam: Clear Bilateral Breath Sounds Implantable Cardiac Device Does patient have a Pacemaker or an ICD?: No Airway Exam Known Difficult Airway: No Mallampati Class: 4 Mouth Opening: Narrow (< 3cm) Thyromental Distance: Less than 3 cm Neck Range of Motion: Limited ROM Neck Circumference: Thick Teeth Condition: Edentulous Airway Comments: All teeth broken or missing ASA Classification ASA Score: ASA 3 Emergency Case?: No NPO Status NPO Status: NPO Clears >2 hours, Solids >8 hours Anesthesia Plan Resuscitation Status: Full Code Anesthesia Technique: Spinal Anesthesia Airway Planned: Natural Airway Pain Management: Surgeon and patient request nerve block Monitors Used: Standard Monitors Preoperative Comments:: Confirmed bladder stim placement on CT prior to spinal.
[2024-09-30] MEDS: ceFAZolin 2 GM/50 ML BAG IVPB (11:47)
[2024-09-30] MEDS: TRANEXAMIC ACID/SOD. CHL. 1,000 MG/100 ML BAG 600 MG IVPB (12:02)
--- NOTE | 2024-09-30 12:32 | W.ANESNERVE ---
Nerve Block Single Injection Procedure Date and Time Date Performed: 09/30/24 Procedure Start: 11:35 Location Where Procedure Performed Procedure Location: Day Surgery Unit Reason Performed: Postoperative Analgesia Requesting Provider: Neptali Huitron Timeout Performed Timeout Performed: Yes Monitoring Used ECG, Blood Pressure, SpO2 and See EMR for corresponding vital signs Sterility Sterility: Hand Hygiene, Surgical Cap, Surgical Mask, Sterile Gloves and Chlorhexidine Sedation Given During Procedure Sedation Given (Indicate Dose Given): No Sedation given Patient Mental Status Patient Mental Status: Awake Nerve Block 1st Nerve Block: Laterality: Left Block Type: Adductor Canal Ultrasound Image Saved?: Yes Needle / Catheter Used: 100mm SonoPlex II Local Anesthetic Bolus (Indicate Dose Given): Lidocaine used for local infiltration of skin, Injected in 3-5ml increments after negative blood aspiration, Bupivacaine 0.25% Dose:: 10ml and Exparel Dose:: 10ml Additives (Indicate Dose Given): None Ultrasound: Sterile probe cover and gel used Nerve Stimulator: Not Used Paresthesia: None Procedure Tolerated: No Complications and Patient tolerated well Procedure Outcome: Successful Performed By: Rodriguez Schuler
--- NOTE | 2024-09-30 13:55 | ROE_ITS ---
Operative Note Operative Note PRE-OP DIAGNOSIS: Left Knee Osteoarthritis POST-OP DIAGNOSIS: same PROCEDURE: Left Total Knee Replacement SURGEON: Neptali Huitron WET PRIMER POWDER BLENDER: Alise López ANESTHESIA TYPE: Spinal Refer to Anesthesia Record ESTIMATED BLOOD LOSS: 150 PATHOLOGY: none sent TOURNIQUET TIME: 0 COMPLICATIONS: None Patient was transported to: PACU Patient's condition: stable Implants: 1. Depuy Attune Cementless Cruciate Retaining Femoral Component, Size 10 2. Depuy Attune Cementless Fixed Bearing Tibial Component, Size 8 3. Depuy Attune 10x6mm CR/FB Poly Indications: I have seen Elias in clinic for symptoms of knee arthritis, confirmed with radiographic findings. He has exhausted nonoperative methods and was having significant limitations in daily function and desired better function and less pain. I discussed the technical details of a knee replacement. I explained the risks of the procedure to include, but not limited to, bleeding, infection, pain, stiffness, fracture, damage to nerves and vessels, damage to muscles and tendons, loosening, need for repeat procedure, blood clot and cardiopulmonary demise. Despite these risks, Elias elected to proceed. Findings: There was significant signs of arthritis throughout the knee with notable poste romedial deformity. Procedure Description: Elias was greeted in the preoperative holding area where the correct side was identified and marked. The consent was reviewed with the patient and signed. The history and physical was updated. All questions were answered. Preoperative medications were administered: Acetaminophen 1000mg, Celebrex 400mg, and Gabapentin 300mg. An adductor canal block was then administered by the anesthesia team in the DSU. He was taken back to the operating room. A spinal anesthestic was then administered. The patient was placed into the supine position on the operating room table. Posts were placed for positioning during the procedure. All bony prominences were well padded. Prophylactic antibiotics in the form of Cefazolin were administered. 1g of Tranxemic Acid was given intravenously within 30 minutes of incision. The left leg was then prepped with Chloraprep and draped in a standard fashion with impervious stockinette. A second prep with Chloraprep was performed prior to application of Iodine impregnated skin protection. A timeout to confirm correct identity, side and site, procedure, allergies, anesthesia, and medical concerns was performed. With the knee in some flexion, a midline incision was made overlying the knee. Full thickness skin flaps were raised once the extensor mechanism was encountered. These were raised medially and laterally. Any bleeding was controlled with electrocautery. Once the extensor mechanism was fully exposed, a medial parapatellar arthrotomy was performed in a flexed position. All bleeding from the arthrotomy and the geniculate arteries was coagulated. A medial subperiosteal peel was performed with electrocautery to the midcoronal plane. Due to the significant varus deformity the entire medial tibial plateau was exposed. The fat pad was removed while keeping the patellar tendon protected. The anterior distal femur synovium was removed for later visualization. The ACL and PCL were resected and the anterior horn of the lateral meniscus was transected. The knee was then flexed with the patella everted. Large osteophytes from the tibia were removed. Large osteophytes from the femur were removed. There is no significant arthritic change within the patella itself. A synovectomy was performed but the patella was not resurfaced. Using a step drill, and based on preoperative templating, the femoral canal was entered. This was done with a step drill without any difficulty. The intramedullary distal femoral cut guide was inserted, set to a 5 degree valgus cut and 9mm cut thickness. The distal femoral cut guide was then held in position and pinned. With the soft tissues protected, the distal cut was performed. This was passed over a few times to ensure a planar cut. I then turned attention to the tibia. The extramedullary guide was placed onto the leg. The distal aspect was slid medial to adjust for position of center of ankle and stay in line with shaft of the tibia. Approximately 3-5 degrees of posterior slope was kept in the proximal cutting guide. The center of the guide was aligned with the PCL. The stylus was used to assess cut thickness. The medial side, most involved side, was set for a 2mm cut off of the lowest posteromedial aspect of the tibia. This was then held in position and pinned into place with 2 additional pins and a cross pin for stability. The medial and lateral collateral ligaments were protected and the cut was performed. With this completed, it was assessed and noted to be of appropriate dimensions. The guide was removed. A spacer block was inserted and the knee was brought into extension. The 6mm spacer block provided full extension, without hyperextension and with stability of both the medial and lateral collateral ligaments was assessed. The pins from the femur and the tibia were then removed. The distal femur was then sized. The anterior stylus was placed onto the lateral ridge of the anterior femur. This indicated a size 10 femur. The external rotation of the guide was adjusted to 3 degrees to match the epicondylar axis, perpendicular to Keith?s line. The 4-in-1 cutting guide was the placed. The posterior medial femur cut was evaluated and appeared of good thickness. The spacer block was inserted underneath the cutting guide and stability was confirmed in 90 degrees of flexion. An yennifer wing was used to confirm appropriate position of the anterior cut to avoid notching. This cutting guide was ensured to be flush on the cut surface and then pinned into place with headed pins. While protecting the soft tissues, quad tendon, and collateral ligaments, the anterior and posterior cuts were performed with a saw. The central two pins were removed and the posterior and anterior chamfers were cut next. The notch-cutting guide was placed. This was pinned to lateralize the femoral component as much as possible while keeping it flush on the cut surface. This was then pinned into position. A reciprocating saw was used to make the notch cut. A rasp smoothed the cut surfaces. The medial and lateral menisci were removed. A trial femoral component was then inserted, impacted down to the cut surfaces, and the lug holes were drilled. A provisional trial tibial component was placed and the knee was brought through range of motion. There was noted to be excellent extension and flexion. There was no significant instability. The polyethylene was trialed until there was good flexion and extension with excellent stability to the medial and lateral collaterals. The patella was tracking without thumbs. A size 6mm polyethylene component provided the best range of motion and stability with less than 2mm gapping with medial and lateral stress and full extension without significant hyperextension. The tibial cut surface was fully exposed. The tibia was then sized as a 8. The tibia had been previously marked during trialing to correspond to the center of the tibial component to help with rotation. The trial was aligned to this brittany, approximately rotated to the medial 1/3rd of the tibial tubercle. The trial was pinned into place. The tibia was prepared with a reamer and a keel punch and lug holes. The trial components were removed. The final components were opened on the back table. The periosteal and capsular tissues, especially posteriorly, around the knee were then systematically injected with a periarticular cocktail consisting of 246mg of Ropivacaine, 0.5mg of Epinephrine, 0.08mg of Clonidine, and 30mg of Ketorolac, diluted to 100cc. The cementless knee components were then placed. Starting with the tibial component, the tibia was subluxed anteriorly and the lug holes of the component were lined up. The tibia was then impacted with an impactor and mallet until the tibial component was in contact with the tibia. The final polyethylene component was inserted. Then, the femoral component was inserted. The lug holes were aligned and the component was impacted into position. The knee was irrigated with Surgiphor Betadine solution. This was allowed to sit in the knee for 3 minutes and then it was irrigated out with saline. After the cement had finally cured, approximately 15min, the clamp was removed from the patella and the knee was taken through range of motion. The patella was tracking with a no-thumbs technique. The capsule was then reapproximated with a No. 1 Vicryl at multiple locations. The capsule was finally closed with a No. 2 Stratafix, barbed suture. The second dosing of 1g TXA was started. Deep tissues were then reapproximated with 0 Vicryl and 2-0 Vicryl. The skin was closed with a running 3-0 Monocryl in a subcuticular fashion. This was reinforced with skin glue. A Mepilex silver dressing was applied along with a [id number] TERRY wrap. A CryoCuff was applied. Elias was transferred to the hospital bed without difficulty an suffering no apparent complication. Elias has a good prognosis. Physical therapy will start today and without restrictions, weight-bearing as tolerated. Aspirin 81mg BID will be used for DVT prophylaxis. Date of Procedure: 09/30/24
--- NOTE | 2024-09-30 14:13 | W.PM.DSUDISC ---
Date of service: 09/30/24 Discharge Plan Disposition Patient Disposition: Home Condition: Good Discharge Details Reason For Visit: Left knee DJD Attending Provider: Neptali Huitron Primary Care Provider: Aide Boles Home Meds and New Rx's Prescriptions: New meloxicam 15 mg tablet 15 mg PO DAILY Qty: 30 1RF Rx Instructions: Take one tablet daily for pain and inflammation aspirin 81 mg tablet,delayed release (DR/EC) 81 mg PO BID 30 Days Qty: 60 0RF acetaminophen 500 mg tablet 1,000 mg PO Q8H PRN Qty: 90 0RF Rx Instructions: Take two tablets up to every 8 hours as needed for pain dexamethasone 4 mg tablet 4 mg PO DAILY Qty: 2 0RF Rx Instructions: Take one tablet once daily for two days docusate sodium [Colace] 100 mg capsule 100 mg PO BID Qty: 30 0RF oxycodone 5 mg tablet 5 mg PO Q4H PRNQty: 18 0RF Rx Instructions: Take one tablet up to every 4 hours as needed for severe postoperative pain Continued Systane Complete 0.6 % drops 1 drp ophthalmic (eye) TID PRN artificial tears ointment Ointment 1 applic ophthalmic (eye) HS latanoprost 0.005 % drops 1 drp ophthalmic (eye) DAILY lurasidone [Latuda] 60 mg tablet 60 mg PO DAILY clomipramine 50 mg capsule 50 mg PO HS methylphenidate HCl [Concerta] 54 mg tablet extended release 24hr 54 mg PO QAM benzonatate 100 mg capsule 100 mg PO TID PRN (Reason: cough) Qty: 14 0RF gabapentin [Neurontin] 800 MG tablet 400 mg PO BID Qty: 270 Patient Comments: 04/02/13 TAKING 400 MG BID. [facility] mirabegron [Myrbetriq] 50 MG tablet extended release 24 hr 50 mg PO DAILY Qty: 90 4RF nitroglycerin 0.4 mg tablet, sublingual 0.4 mg SL Q5M PRN (Reason: chest pain) Qty: 30 2RF atorvastatin 40 mg tablet 40 mg PO DAILY Qty: 90 3RF bisoprolol fumarate 5 mg tablet 5 mg PO DAILY Qty: 90 3RF cholecalciferol (vitamin D3) 50 mcg (2,000 unit) capsule 100 mcg PO DAILY Qty: 180 3RF riboflavin (vitamin B2) 100 mg tablet 100 mg PO BID Qty: 180 12RF tolterodine [Detrol LA] 4 mg capsule,extended release 24hr 4 mg PO DAILY Qty: 90 12RF pantoprazole 40 mg tablet,delayed release (DR/EC) 40 mg PO DAILY Qty: 90 12RF magnesium oxide 500 mg capsule 500 mg PO DAILY Qty: 90 12RF calcium carbonate 500 mg calcium (1,250 mg) Tablet,Chewable 2 mg PO PRN PRN Discontinued acetaminophen 500 mg tablet 500 mg PO Q6H PRN ibuprofen 400 mg tablet 400 mg PO PRN aspirin 81 mg tablet,delayed release (DR/EC) 81 mg PO DAILY Qty: 90 3RF Discharge Instructions Additional Instructions: Total Knee Discharge Instructions Activity: The most important activity is to walk and to work on gentle motion (both flexion and extension). You should try to take short walks a few times a day. It is important that when resting you work on keeping the knee straight. Avoid putting a pillow behind the knee as this will encourage flexion. Work on range of motion exercises as provided by Physical Therapy. - Start outpatient physical therapy within 2 weeks. - You should wear the SAMANTHA hose on both legs for 2 weeks. You may remove these at night. You may also use any compression sock in place of the SAMANTHA hose. - Utilize [employer] to review exercises, see videos on exercises and obtain basic information pertaining to your surgery and your recovery. Dressing: Remove the Quinten wrap by 2 days after your surgery and put on the SAMANTHA stocking given to you from the hospital. Keep the surgical dressing (underneath the QUINTEN wrap) in place for at least one week. After the first week it may be removed and replaced with light gauze and tape or nothing. The wound and dressing may get wet after 3 days but avoid soaking the dressing or otherwise it will need to be changed. Many people prefer covering the dressing with cling wrap (saran wrap) to minimize it from getting soaked. If it gets wet, just pat dry. If it starts to peel off then it will need to be changed. Medications: - You should take Tylenol and anti-inflammatory Meloxicam as your primary pain control medications. If the Meloxicam is too expensive or not covered, please call the office for another alternative (Advil/Ibuprofen or Naproxen/Aleve) - You have been prescribed a stronger pain medication Oxycodone for breakthrough pain, take as needed as prescribed. - You take a stomach acid reduction agent Pantoprozole at baseline - continue with this medication to help reduce stomach acid and reflux. - You will be taking Aspirin 81mg twice a day for DVT prevention unless instructed otherwise. - You have also been prescribed Decadron to take to control post-operative nausea and pain. You will start this tomorrow. - If you have constipation you should take Colace (which has been prescribed) or Miralax (which is available [id number]). It takes most people 3-4 days to have a bowel movement. Follow-up: 2 weeks If you have any acute concerns or questions, please do not hesitate to contact the office at [phone]. You may contact Dr. Huitron with any questions after hours through the hospital at [phone] or on his cell phone at [phone]. Referrals: Neptali Huitron MD [ [facility] STAFF PHYSICIAN] - Equipment/Supplies: Walker Activity:: Elevate Remove Dressings/Wound Care:: Do Not Remove Shower/Bathe:: Cover Diet:: As Tolerated Discharge Orders Discharge Orders: Discharge Order (Routine); Ordered 09/30/24 Ordered By: Alise López
--- NOTE | 2024-09-30 15:24 | W.ANESPOSTOP ---
Postoperative Evaluation Date, Time and Location Date Performed: 09/30/24 Time Performed: 15:24 Patient Location: Day Surgery Unit Vital Signs Most Recent Imported Vital Signs: Most Recent Vital Signs Temp Pulse Resp BP Pulse Ox 36.4 C L 78 16 116/57 L 100 09/30/24 14:26 09/30/24 14:21 09/30/24 14:21 09/30/24 14:21 09/30/24 14:21 Pain Score Most Recent Pain Score: Most Recent Pain Score Pain Level 0 09/30/24 14:26 Assessment Mental Status: Awake (Alert & Oriented to Patient Baseline) Airway and Respiratory Function: Patent airway with normal (patient baseline) respiratory exam Cardiovascular Function: Hemodynamically Stable Hydration Status: Adequately Hydrated Nausea & Vomiting: No Nausea or Vomiting Pain: Pain is tolerable per patient Peripheral Nerve Block: Patient did not receive a nerve block
--- NOTE | 2024-09-30 17:15 | PT.INIE ---
PT Notes Visit Reasons: Left knee DJD Physical Therapy Day Surgery Initial Evaluation Date: 09/30/2024 Referring Doctor: Alise López PT Orders: PT CONSULT: s/p Ortho Surgery Precautions: WBAT LLE Patient Profile/Admitting Diagnosis: Pt is a 74 yo male presenting s/p elective L TKA under spinal anesthesia by Dr Huitron on 09/30/2024. 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 states he is being followed by Dr. Robertson @ [facility] Elevated PSA, less than 10 ng/ml (08/13/17) PSA 7.6: negative prostrate biopsy 10/[address] [facility] Degeneration of cervical intervertebral disc C5/6 foraminal narrowing Surgical History (Updated 09/23/24 @ 09:08 by Alise López) History of cardiac cath S/P sinus surgery (~2017) Colonoscopy - MAC (04/07/13) 04/2022 DR. Scar ALLISON; 2 TUBULAR ADENOMASArthroplasty of knee (~2007) RIGHT, DR. ESCAMILLA 2013 2007 right knee arthroscopy - partial meniscectomy.Status post total knee replacement using cement (09/01/13) Right Social History/Home Situation: resides at home with his in 1 story home with 5 SUSY with right rail. Pt independent without device for ambulation. 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 assists with meals.and shopping. Equipment Owned/DME: F[employer], [facility] Subjective: Pt reports he is feeling well and is ready to start moving his new knee. Objective: General Observation: male presenting upright on stretcher with cryocuff to left knee; present, IV Fluids infusing Mental Status: A+Ox 4 , cooperative, able to follow instruction and recall safe hand placement Pain: 1-2/ 10 left knee ROM: [] Right Upper Extremity: WFL Left Upper Extremity: WFL Right Lower Extremity: WFL Left Lower Extremity: WFL except knee 0-100 degrees Strength: [] Right Upper Extremity: 5/5 Left Upper Extremity: 5/5 Right Lower Extremity:5/5 Left Lower Extremity: Hip flexion: 3- /5; hip abduction:3- /5; hip extension: 3- /5; knee extension: 3 /5; knee flexion: 2+ /5 ankle DF: 3/5 ; ankle PF: 3/5 Sensation: intact except along incision Bed Mobility/Transfers: [] Supine to sit supervision Sit to stand SBA Stand to sit SBA Bed to chair SBA with FWW Gait: amb with FWW 100 feet with SBA demonstrating impaired left knee flexion during swing phase , early heel off left, circumduction and hip hike Left Stairs: 4 steps with 1 rail single-point cane contact-guard assist step to pattern x 2 trials Balance: [] Static Sitting: Normal Dynamic Sitting: good Static Standing: good Dynamic Standing: good- Special Tests: [] Mobility Limitations Standardized Measure [] [facility] 6 clicks Basic Mobility Inpatient Short Form: [] Raw Score: 21 CMS Score: 28.97% Informed Consent/Education: Patient instructed in purpose of PT consult. Treatment : 72818: Packet containing TKA exercise protocol has been given to patient. Education and training on initial set of exercises that can be done at home have been completed with patient. Assessment: Patient presents with clinical signs and symptoms consistent with current/admitting diagnoses that have resulted to mobility limitations, gait instability, generalized weakness, and impairment of motor control as demonstrated by the following impairment level findings: 1. Decreased strength to left knee major muscle groups 2. Impaired standing balance 3. Limitation of joint range of motion in left knee 4. impaired functional activity tolerance in standing Impairments are contributing to the following functional limitations: 1. Inability to safely ambulate without assistive device 2. Increase completion time for mobility ADL performance 3. Increased fall risk 4. difficulty performing stairs safely alone Patient is assessed as a moderate complexity based on the following: History: 74-year-old male with impairment level findings, functional limitations, and past medical history as indicated above Examination: Demonstrable impairment in strength, balance, and mobility level with underlying impairments and functional limitations as documented above Presentation: evolving Decision Making: moderate Goals: N/A. Plan of Care/Treatment Plan: N/A. DISCHARGE RECOMMENDATIONS: Home with HEP and outpatient PT as scheduled TREATMENT CODE/TIME: 46596, 30218/ 3:25pm-4:00pm Thank you for the opportunity to participate in the care of this patient. Martha Hunt PT [facility]
== END 2024-09-30 16:35 | disposition home or self-care (01) ==
PROVIDERS: PCP Nurse Practitioner Family; Visit Provider Student in an Organized Health Care Education/Training Program
PROC: (CPT 27447; principal; 2024-09-30 13:15)
DX: M17.12 Unilateral primary osteoarthritis, left knee (principal); G89.18 Other acute postprocedural pain; M25.562 Pain in left knee; E55.9 Vitamin D deficiency, unspecified; G47.30 Sleep apnea, unspecified; K21.9 Gastro-esophageal reflux disease without esophagitis; R53.82 Chronic fatigue, unspecified; F41.8 Other specified anxiety disorders
CPT/HCPCS: 27447; 64447; 97110; 97162; C1776; J0665; J0666; J0690; J1100; J2250; J2371; J2401; J2405; J2598; J2704

== ENCOUNTER 2024-10-13 10:57 | Outpatient (CLI) | payer MEDICARE, SELFPAY ==
--- NOTE | 2024-10-13 11:08 | DI.RAD_ITS ---
Exam(s) XR KNEE LT 1V XR STANDING ALIGNMENT EXAM: XR STANDING ALIGNMENT CLINICAL HISTORY: 1ST POST OP L TKA. TECHNIQUE: 2D digital imaging was performed. Standing AP views were performed from the pelvis throu gh the ankles. COMPARISON: CR XR STANDING ALIGNMENT from 09/23/2024 CR XR KNEE LT 1V from 10/13/2024 FINDINGS: BONES: No acute fracture is present. No bony destructive lesion is seen. Leg length discrepancy: No significant overall leg length discrepancy. JOINTS: Knees: A left total knee prosthesis has been placed since the prior exam. The alignment is satisfactory. The right total knee prosthesis appears unchanged. The ankle joints are unremarkable. The hip joints are unremarkable. SOFT TISSUE: Sacral stimulator device noted. Lower extremity edema, greater on the left. IMPRESSION: Bilateral total knee arthroplasty. No significant leg length discrepancy. DATA REPOSITORY: RADIATION DOSE DELIVERED:
== END 2024-10-13 10:58 | disposition home or self-care (01) ==
LOC: DIORS 10:58
PROVIDERS: PCP Nurse Practitioner Family; Referring Provider Nurse Practitioner Family; Visit Provider Student in an Organized Health Care Education/Training Program
DX: Z96.652 Presence of left artificial knee joint (principal); Z47.1 Aftercare following joint replacement surgery
CPT/HCPCS: 99024; 73560; 77073

== ENCOUNTER → 2024-11-10 10:19 | Outpatient (BNVA) | payer MEDICARE, SELFPAY | PROVIDERS: PCP Nurse Practitioner Family | DX: Z47.1 Aftercare following joint replacement surgery (principal); Z96.652 Presence of left artificial knee joint | CPT/HCPCS: 99024 ==

== ENCOUNTER 2024-11-28 08:47 | Outpatient (CLI) | payer MEDICARE, SELFPAY ==
--- NOTE | 2024-11-28 08:45 | RT.EKG_ITS ---
APPROVED REPORT Exam: Resting ECG Reason for Exam: annual eval Patient Location: O HR:85 bpm ECG Measurements Heart Rate 85 AXIS IA 146 P 52 QRSd 96 QRS 59 QT 378 T -2 QTc 450 Conclusion Sinus rhythm...normal P axis, V-rate 50- 99 Probable left atrial enlargement...P >50mS, <-0.10mV V1 Incomplete RBBB
== END 2024-11-28 08:48 | disposition home or self-care (01) ==
LOC: DI.CARD 08:50
PROVIDERS: PCP Nurse Practitioner Family; Visit Provider Internal Medicine Cardiovascular Disease
DX: Z98.890 Other specified postprocedural states (principal); R06.09 Other forms of dyspnea; I25.10 Atherosclerotic heart disease of native coronary artery without angina pectoris
CPT/HCPCS: 93010

== ENCOUNTER → 2024-11-28 08:47 | Outpatient (BNVA) | payer MEDICARE, SELFPAY | PROVIDERS: PCP Nurse Practitioner Family; Referring Provider Nurse Practitioner Family; Visit Provider Internal Medicine Cardiovascular Disease | DX: I45.10 Unspecified right bundle-branch block (principal); I25.10 Atherosclerotic heart disease of native coronary artery without angina pectoris | CPT/HCPCS: 93005; 99213 ==

== ENCOUNTER → 2024-12-29 08:54 | Outpatient (BNVA) | payer MEDICARE, SELFPAY | PROVIDERS: PCP Nurse Practitioner Family; Referring Provider Nurse Practitioner Family; Visit Provider Student in an Organized Health Care Education/Training Program | DX: Z47.1 Aftercare following joint replacement surgery (principal); Z96.652 Presence of left artificial knee joint | CPT/HCPCS: 99024 ==

== ENCOUNTER 2025-03-11 13:06 | Outpatient (CLI) | payer MEDICARE, SELFPAY ==
--- NOTE | 2025-03-11 14:00 | DI.RAD_ITS ---
Exam(s) XR FOOT LT COMPLETE EXAM: XR FOOT LT COMPLETE CLINICAL HISTORY: foot, left M79.672 PAIN LEFT FOOT. TECHNIQUE: 2D digital imaging was performed of the left foot. Three images were obtained. AP, oblique and lateral views were obtained. COMPARISON: No exams were available for comparison FINDINGS: BONES: No acute fracture is present. No bony destructive lesion is seen. There is a small plantar calcaneal spur. JOINTS: No dislocation present. The joint spaces are well maintained. SOFT TISSUE: Atherosclerotic calcification is present. IMPRESSION: 1. There is no acute fracture or dislocation. 2. Calcaneal spur. DATA REPOSITORY: RADIATION DOSE DELIVERED:
--- NOTE | 2025-03-11 14:30 | DI.US_ITS ---
Exam(s) US LOWER EXTREMITY VENOUS LT EXAM: US LOWER EXTREMITY VENOUS LT CLINICAL HISTORY: left leg swelling M79.89 SOFT TISSUE DISORDER TECHNIQUE: Left lower extremity venous ultrasound performed using grayscale, color-flow, and spectral Doppler analysis. COMPARISON: No exams were available for comparison FINDINGS: The left common femoral, femoral and popliteal veins demonstrate normal compressibility, augmentation, and color Doppler. The posterior tibial veins are patent. The saphenofemoral junction is unremarkable. There is no evidence of a Frazier cyst. There is edema seen in the soft tissues of the lower extremity. IMPRESSION: No evidence of a left lower extremity DVT. DATA REPOSITORY:
== END 2025-03-11 13:26 ==
LOC: DI 03-26 13:06
PROVIDERS: PCP Nurse Practitioner Family; Visit Provider Physician Assistant
DX: M79.89 Other specified soft tissue disorders (principal); M79.672 Pain in left foot
CPT/HCPCS: 73630; 93971

== ENCOUNTER 2025-07-17 09:18 | Inpatient (IN) | payer MEDICARE, SELFPAY ==
[2025-07-17] VITALS (90 sets, daily range): BP systolic 98–138; BP diastolic 45–82; PULSE 57–82; RESP 11–27; TEMP 36.5–36.9; O2SAT 91–98
--- NOTE | 2025-07-17 09:15 | RT.EKG_ITS ---
APPROVED REPORT Exam: Resting ECG Reason for Exam: chest pain Patient Location: E HR:78 bpm ECG Measurements Heart Rate 78 AXIS [place] 156 P 62 QRSd 88 QRS 20 QT 389 T -9 QTc 445 Conclusion Pacemaker spikes or artifacts...timing non-diagnostic Sinus rhythm...normal P axis, V-rate 60- 99 Probable left atrial enlargement...P >50mS, <-0.10mV V1 Posterior infarct, old...prom R T, V1-V3 or Q >40mS, V7-V9
--- NOTE | 2025-07-17 09:45 | DI.RAD_ITS ---
Exam(s) XR CHEST 2V PA LATERAL EXAM: XR CHEST 2V PA LATERAL CLINICAL HISTORY: Chest pain TECHNIQUE: 2D digital imaging was performed of the chest. Two images were obtained. PA and lateral views were obtained. COMPARISON: CR,XR XR PORTABLE CHEST AP from 07/09/2021 CR XR CHEST 2V PA LATERAL from 09/03/2024 FINDINGS: MEDIASTINUM: Normal. HEART: Normal. PULMONARY VASCULATURE: Normal. LUNGS: The lungs are hyperinflated with flattened diaphragms suggesting underlying COPD. There are no focal consolidating infiltrates present. PLEURAL SPACE: No pleural effusion or pneumothorax. BONE:Within normal limits for the patient's age. OTHER FINDINGS:Normal. IMPRESSION: No acute pulmonary findings. DATA REPOSITORY: RADIATION DOSE DELIVERED:
[2025-07-17] MEDS: nitroGLYcerin 0.4 MG TAB SL ×2 (09:55→10:42)
[2025-07-17 09:59] LABS: Abs Immature Grans 0.04 10^3/uL (0.0-0.06); HCT 39.0 % (40.0-50.0); HGB 12.7 g/dL (13.5-17.5); Immature Grans % 0.7 %; MCH 28.6 pg (27.0-33.0); MCHC 32.6 % (32.0-36.0); MCV 88 fL (80-95); MPV 11.0 fL (8.0-11.0); Platelet Count 139 10^3/uL (130-400); RBC 4.44 10^6/uL (4.36-5.78); RDW 13.2 % (11.8-14.1); RDW-SD 42.8 fL; WBC 5.70 10^3/uL (4.4-10.8)
--- NOTE | 2025-07-17 10:02 | W.ED.GENAD ---
Discharge Plan Disposition Patient Disposition: Admit to [facility] Condition: Serious Discharge Details Clinical Impression: Chest pain Admit Date/Time: 07/17/25 12:02 Admit Provider: Declan Nicole Attending Provider: Declan Nicole Primary Care Provider: Aide Boles ED Provider: Heath Mcclelland Discharge Data Discharge Date/Time-TO BE ENTERED AT DEPARTURE: 07/17/25 12:48 HPI General Mode of arrival: ambulatory. Date/Time Provider Initiated Documentation: 07/17/25 09:36. Limitations to Documentation: no limitations. Information obtained by: patient. HPI Narrative: HISTORY OF PRESENT ILLNESS This is a 74-year-old male with a history of coronary artery disease presenting with left sternal chest pain and associated shortness of breath. The patient reports experiencing chest pain and shortness of breath that began a few days ago, specifically on Sunday. The pain is localized to the left side of his chest and intensifies with physical exertion, such as climbing stairs. He does not experience any discomfort when moving his arms or taking deep breaths. The shortness of breath appears to be constant now. He reports no swelling or rashes. The patient has a history of myocardial infarction approximately 4 years ago, during which a blockage was identified but deemed unsuitable for stent placement. Since then, he has been managing well. The patient does not smoke, drink alcohol, or use recreational drugs. Related Data Home Medications ?Medication ?Instructions ?Recorded ?Confirmed mirabegron 50 mg tablet,extended 50 mg PO DAILY #90 tab-caps 09/14/17 07/17/25 release 24 hr (Myrbetriq) calcium carbonate 2 mg PO PRN PRN 02/19/21 07/17/25 artificial tears ointment 1 applic ophthalmic (eye) HS 07/19/21 07/17/25 latanoprost 0.005 % eye drops 1 drp ophthalmic (eye) DAILY 07/19/21 07/17/25 propylene glycol 0.6 % eye drops 1 drp ophthalmic (eye) TID PRN 07/19/21 07/17/25 (Systane Complete) nitroglycerin 0.4 mg sublingual 0.4 mg sublingual Q5M PRN chest 08/28/23 07/17/25 tablet pain #30 tabs magnesium oxide 500 mg capsule 500 mg PO DAILY #90 caps 08/04/24 07/17/25 riboflavin (vitamin B2) 100 mg 100 mg PO BID #180 tabs 08/04/24 07/17/25 tablet atorvastatin 40 mg tablet 40 mg PO DAILY #90 tabs 04/08/25 07/17/25 bisoprolol fumarate 5 mg tablet 5 mg PO DAILY #90 tabs 04/08/25 07/17/25 cholecalciferol (vitamin D3) 50 100 mcg (2 x 50 mcg (2,000 unit)) 04/08/25 07/17/25 mcg (2,000 unit) capsule PO DAILY #180 caps aspirin 81 mg tablet 81 mg PO DAILY #90 tabs 04/09/25 07/17/25 gabapentin 600 mg tablet 300 mg PO BID 04/28/25 07/17/25 escitalopram oxalate 10 mg tablet 10 mg PO DAILY 06/23/25 07/17/25 pantoprazole 40 mg tablet,delayed 40 mg PO DAILY #90 tab-caps 07/06/25 07/17/25 release tolterodine 4 mg capsule,extended 4 mg PO DAILY #90 caps 07/06/25 07/17/25 release 24 hr (Detrol LA) Previous Rx's ?Medication ?Instructions ?Recorded mirabegron 50 mg tablet,extended 50 mg PO DAILY #90 tab-caps 09/14/17 release 24 hr (Myrbetriq) nitroglycerin 0.4 mg sublingual 0.4 mg sublingual Q5M PRN chest 08/28/23 tablet pain #30 tabs magnesium oxide 500 mg capsule 500 mg PO DAILY #90 caps 08/04/24 riboflavin (vitamin B2) 100 mg 100 mg PO BID #180 tabs 08/04/24 tablet atorvastatin 40 mg tablet 40 mg PO DAILY #90 tabs 04/08/25 bisoprolol fumarate 5 mg tablet 5 mg PO DAILY #90 tabs 04/08/25 cholecalciferol (vitamin D3) 50 100 mcg (2 x 50 mcg (2,000 unit)) 04/08/25 mcg (2,000 unit) capsule PO DAILY #180 caps aspirin 81 mg tablet 81 mg PO DAILY #90 tabs 04/09/25 pantoprazole 40 mg tablet,delayed 40 mg PO DAILY #90 tab-caps 07/06/25 release tolterodine 4 mg capsule,extended 4 mg PO DAILY #90 caps 07/06/25 release 24 hr (Detrol LA) Allergies Allergy/AdvReac Type Severity Reaction Status Date / Time Penicillins Allergy Unknown Unknown Verified 07/17/25 12:21 metoprolol AdvReac fatigue Verified 07/17/25 12:21 General Stated Complaint: Chest Pain MARTY: 3 Review of Systems Constitutional Constitutional: Denies fever(s) Cardiovascular Cardiovascular: Reports as per HPI Exam Const General: cooperative and no acute distress HENMT Mouth: moist mucous membranes Eyes Conjunctivae: normal conjunctivae Sclera: normal sclerae Neck Neck: trachea midline and supple Resp Auscultation: clear to auscultation bilaterally, no rales, no rhonchi and no wheezes Cardio Rate: regular rate and not tachycardic Rhythm: regular rhythm GI Palpation: soft, not firm, no guarding, no masses, not rigid and nontender Skin General skin exam: no rashes or lesions noted Neuro General: patient alert, patient awake, patient oriented x3 and tone normal Extrem General: edema Laterality: bilateral (1+ pitting shins) Psych Appearance: grossly normal Mental Status: mental status grossly normal Speech and Movement: speech and movement normal Course Vital Signs Vital signs: Vital Signs Pulse 81 07/17/25 09:24 Respiratory Rate 16 07/17/25 09:24 Blood Pressure 135/69 07/17/25 09:24 Pulse Oximetry 98 07/17/25 09:24 Pulse 81 07/17/25 09:24 Respiratory Rate 16 07/17/25 09:24 Blood Pressure 135/69 07/17/25 09:24 Pulse Oximetry 98 07/17/25 09:24 Oxygen Delivery Method Room Air 07/17/25 09:24 Oxygen Flow Rate 0 07/17/25 09:24 Pain Level 5 07/17/25 09:55 Medical Decision Making ASSESSMENT AND PLAN Initial Assessment: 74-year-old male with left sternal chest pain and shortness of breath. History of coronary artery disease and previous heart attack. Patient saturating well in no respiratory distress. Hemodynamically stable. Differential Diagnosis: - Coronary artery disease: History of CAD and previous heart attack. Further evaluation needed. - Musculoskeletal pain: Pain worsens with exertion, not with arm movement or deep breaths. Less likely. - Pulmonary embolism: Shortness of breath constant. Further investigation needed. ED Course: - EKG was reviewed and interpreted by me: Please report, sinus rhythm 78 bpm, no STEMI, nondiagnostic. Initial troponin negative. Plan to trend. Patient was given nitroglycerin sublingual and noted some improvement in pain. Continues to have pain after 2 sublingual nitro on reassessment. Plan to start nitroglycerin infusion. - Chest x-ray reviewed interpreted by radiology: No acute pulmonary findings, normal mediastinum. - Age-adjusted D-dimer negative. - Plan to give additional 243 mg aspirin, patient took baby aspirin this morning. - Patient had some improvement in chest pain with nitroglycerin sublingual tablet. Patient to be started nitroglycerin infusion plan to titrate to effect. - Plan to hospitalize for further diagnostic workup, cardiac monitoring. Clinical Impression: - Chest pain with history of coronary artery disease, concern for ACS This document was written with the assistance of ELIDA Whitlock. The patient consented to its use. Lab Data Lab results reviewed: Yes I reviewed the patient's lab results. Quality:SDOH Health Related Social Needs: Health related social needs house/econ circumstance Health related social needs details money is tight, but we don't have any problems currently Critical Care Time Critical Care Time Critical Care Time: Yes Total Critical Care Time: 45 Attestation: Due to a high probability of clinically significant, life threatening deterioration, the patient required my highest level of preparedness to intervene emergently and I personally spent this critical care time directly and personally managing the patient. This critical care time included obtaining a history; examining the patient; pulse oximetry; ordering and review of studies; arranging urgent treatment with development of a management plan; evaluation of patient's response to treatment; frequent reassessment; and, discussions with other providers. This critical care time was performed to assess and manage the high probability of imminent, life-threatening deterioration that could result in multi-organ failure. It was exclusive of separately billable procedures and treating other patients and teaching time. Please see MDM section and the rest of the note for further information on patient assessment and treatment. PFSH All Active Problems (Updated 07/20/25 @ 16:13 by Heath Mcclelland MD) Chest pain (Acute) Unstable angina (Acute) Cerumen impaction (Acute) Bilateral hearing loss due to cerumen impaction (Acute) Tardive dyskinesia (Acute) mouth movement History of total left knee replacement (Acute 09/30/24) Painful total knee replacement, right (Acute) Femoroacetabular impingement of both hips (Acute) Pain of right heel (Acute) Urinary incontinence (Acute) [place] botox [place] in the bladder[place] [facility] [place]-sided low back pain without sciatica (Acute) Tubular adenoma of colon (Chronic) 06/28/07 tubular adenoma 04/07/13 TUBULAR ADENOMA Coronary artery disease (Chronic) Cervicalgia (Acute) Dry eye syndrome of both eyes (Acute) Vitamin D deficiency (Acute) Urgency incontinence (Chronic 01/12/16) Interstim implant ~2020 PVP on 07/09/18, uncomplicated[place] [facility] [place] Plavix restarted. Tremor (Chronic) Rosacea (Chronic) Lung mass (Chronic 07/26/15) work up in progress 08/01/19 per pt. states that he has no issues with his lungs Chronic fatigue (Chronic 07/29/15) Arthritis (Chronic 01/26/16) Sleep apnea (Chronic) uses CPAP device Medical History Nasal turbinate hypertrophy Deviated nasal septum Chronic rhinitis 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 states he is being followed by Dr. Robertson @ [facility] Right anterior shoulder pain (10/25/16) Elevated PSA, less than 10 ng/ml (08/13/17) PSA 7.6: negative prostrate biopsy 10/14 at [facility] Degeneration of cervical intervertebral disc C5/6 foraminal narrowing Surgical History S/P placement of nerve stimulator Bladder stimulator in situ History of cardiac cath S/P sinus surgery (~2017) Colonoscopy - MAC (04/07/13) 04/2022 DR. Scar ALLISON; 2 TUBULAR ADENOMAS Arthroplasty of knee (~2007) RIGHT, DR. ESCAMILLA 2013 2007 right knee arthroscopy - partial meniscectomy. Status post total knee replacement using cement (09/01/13) Right Family History Mother Cancer Father Stroke Alcohol abuse Sister Dementia Sister , age 60 Cancer Brother Alcohol abuse Substance abuse Brother No problems noted. Brother Heart disease Maternal Grandfather Stroke Paternal Grandfather Stroke Son Depression Son No problems noted. Maternal Grandmother No problems noted. Paternal Grandmother No problems noted. Social History (Updated 07/17/25 @ 15:45 by Declan Nicole) Smoking/Tobacco Use Status: Never Second Hand Exposure: Yes Smoking risk assessment performed?: Yes Alcohol Intake: never Details: one drink a year. Drug use: Never Substance use type: does not use Adopted: No Caregiver/Support person: No Foster care: No Household members: spouse and children Housing: house Number of Children: 2 number of grandchildren: 1 Communication Needs: Corrective Lenses Education Level: high school Do you need help understanding health information?: Often current occupation: Retired Pets and animals: Yes Pets and animals: cat(s) and dog(s) Sexually active: No Do you think of yourself as: straight/heterosexual Current gender identity: male What is your relationship status?: How often do you talk on the phone with friends or family?: once per week How often do you get together with friends or relatives?: three or more times per week How often do you attend confucianist or jainism services?: 4 or more times per year Do you belong to any clubs or organized social groups?: no Panel score (0-1 are the most socially isolated patients): 3 What type of physical activity do you participate in: none Duration: 45-60 minutes/day Frequency: does not exercise Seema/Synagogue: [employer] Special seema needs: No Agree to transfusion: Yes Seatbelt use: always Drive intox or ride w/intox van driver: No Working smoke detector in home: Yes Carbon monox detector in home: Yes Firearms in home: No Do you feel safe at home: Yes Do you feel safe in your relationship?: Yes Victim of physical abuse: No Victim of emotional abuse: No Victim of sexual abuse: No Would you like helpful sources: No Additional Social history: Lives with and son [address] in [facility]. Retired from [employer]. [employer]
[2025-07-17 10:31] LABS: ALT 18 U/L (10-49); AST 18 U/L (<34); Albumin 3.9 g/dL (3.2-5.0); Alkaline Phosphatase 96 U/L (46-116); Anion Gap 9.8 mmol/L (3-11); BUN 16 mg/dL (9-23); Bilirubin, Total 0.6 mg/dL (0.2-1.2); CO2 26.2 mmol/L (20.0-31.0); Calcium 8.6 mg/dL (8.3-10.6); Chloride 106 mmol/L (98-107); Glucose 130 mg/dL (74-106); Potassium 4.0 mmol/L (3.5-5.1); Sodium 142 mmol/L (136-145); Total Protein 6.5 g/dL (5.7-8.2)
[2025-07-17 10:36] LABS: Troponin I < 3 ng/L (<54)
[2025-07-17 10:43] LABS: PTT Activated 27.1 sec (20.6-30.2)
--- NOTE | 2025-07-17 10:59 | NUR.NOTE ---
Nursing Note: inital CP 5/10 x1 nitro given, CP decreased to 3/0 another Nitro given as ordered f/u cp 3/10 at this time
[2025-07-17 11:16] LABS: D-Dimer 562 ng/mlFEU (<500)
[2025-07-17 11:19] LABS: Troponin I 4 ng/L (<54)
[2025-07-17] MEDS: nitroGLYcerin in D5W 50 MG/250 ML BTL IV (11:29)
[2025-07-17] MEDS: Aspirin 81 MG CHEW 243 MG CH (11:29)
[2025-07-17 13:14] LABS: Troponin I 4 ng/L (<54)
[2025-07-17] MEDS: Heparin in 0.45% NaCl 25,000 UNIT/250 ML BAG 10 UNIT IVINF (14:01)
--- NOTE | 2025-07-17 14:29 | W.NUTRFU ---
Date of service: 07/17/25 Time of Service: 14:29 Nutrition Note NOTE: Visited with Elias and his Alba and son in ICU today. Just recently admitted and hungry. Sent him up fruit and sandwich with dell and took dinner order for tonight and breakfast for tomorrow. Ordered for heart healthy diet currently. will modify to soft and bite size consistency as pt is adentuous. Reports having dentures at home but does not like them and doesn't wear most of the time. Current BMI associated with class I obesity. Pt denies concerns about any significant recent wt changes. NKFA noted. tends to take care of meals at home but states she does get tired of cooking and decision-making around food/menus so they go out to eat/get take out probably more often than they should. Denies concerns with glucose - last A1C was 5.6% back in 2018. Hx of low vitamin D - takes at home and ordered for his admission. fair-good appetite reported. Denies use/need for ONS at home. Labs: electrolytes wnl. Hgb/Hct today 12.7/39.0. total protein and albumin labs wnl Nutr Dx: Class I obesity related to excess kcals from eating out often and choosing many food options out of convenience often AEB current BMI of >30 and nutrition interview with pt and family today. Intervention: No aggressive nutrition intervention planned other than modifying consistency to diet order for ease of chewing. Will continue to monitor meal toleration and intake, weight, nutrition -related labs. Time Spent in Nutritional Counseling and Treatment: 8 min
--- NOTE | 2025-07-17 15:22 | W.PM.HP.N ---
Date of service: 07/17/25 Time of Service: 15:22 Assessment and Plan Assessment and plan (1) Unstable angina: Status: Acute Assessment and plan: Progressive exertional chest pain in patient with known CAD concerning for unstable angina. EKG and troponins reassuring. Case reviewed with Dr. Mota who suggested the heparin drip and consideration of non-emergent catheterization, call back pending from [facility] cardiology Fortunately, he is now chest pain free on NTG drip in ICU for monitoring. (2) Coronary artery disease: Status: Chronic Assessment and plan: Continue aspirin and atorvastatin, treating as above. Repeat Lipids and A1c to help assess overall risk, but LDL was <70 06/2024 (3) Increased BMI (body mass index): Status: Chronic Assessment and plan: no recent change. May benefit from GLP-1 fdc with ELIAS and CAD (4) Anxiety and depression: Status: Chronic Assessment and plan: Stable, continue SSRI escitalopram (5) GERD (gastroesophageal reflux disease): Status: Chronic Assessment and plan: This pain is not suggestive of GERD as cause. Continue PPI. (6) Urgency incontinence: Status: Chronic Assessment and plan: He is dependant on strait cath, continue while inpatient, can continue urinary meds as well (7) Sleep apnea: Status: Chronic Assessment and plan: Home CPAP if available. History of Present Illness History of Present Illness Chief Complaint: chest pain Narrative: 74 yo M with h/o CAD s/p posterolateral STEMI that was managed medically in 2018, ELIAS, urinary retention/incontinence, and BMI 34 who presented to the emergency room with 2 days of increasing chest pain. Pain started mild like 2/10 in the morning 2 days ago. He doesn't remember a trigger. Left sided, aching, radiating to the mid chest but not the arm/neck/back. It was always there since it started, but worse as time went on and worse with walking up to 5/10. A/w SOB, but not nausea, lightheadness, or diaphoresis. He has been quite fatigued since it started. It wasn't going away so he finally told his today and came into the hospital. In the emergency department he was given NTG which decreased the intensity of pain so he was started on a NGT drip and given 243mg of additional aspirin and a heparin drip and the pain has since resolved. He denies any additional stresses recently or medication changes, other than some antibiotics (doxycycline) for a sinus infection 07/06 (denies taking stimulant decongestants, denies any cough or fever). He takes his cardiac medication regularly. Review of Systems All systems reviewed & are unremarkable except as noted in HPI and below PFSH All Active Problems (Updated 07/17/25 @ 15:50 by Declan Nicole) Unstable angina (Acute) Cerumen impaction (Acute) Bilateral hearing loss due to cerumen impaction (Acute) Tardive dyskinesia (Acute) mouth movement History of total left knee replacement (Acute 09/30/24) Painful total knee replacement, right (Acute) Femoroacetabular impingement of both hips (Acute) Pain of right heel (Acute) Urinary incontinence (Acute) Gets botox injection in the bladder, [place] [facility] Right-sided low back pain without sciatica (Acute) Tubular adenoma of colon (Chronic) 06/28/07 tubular adenoma 04/07/13 TUBULAR ADENOMA Coronary artery disease (Chronic) Cervicalgia (Acute) Dry eye syndrome of both eyes (Acute) Vitamin D deficiency (Acute) Urgency incontinence (Chronic 01/12/16) Interstim implant ~2020 PVP on 07/09/18, uncomplicated, [place] [facility] [place] Snow) Plavix restarted. Tremor (Chronic) Rosacea (Chronic) Lung mass (Chronic 07/26/15) work up in progress 08/01/19 per pt. states that he has no issues with his lungs Increased BMI (body mass index) (Chronic 08/13/17) GERD (gastroesophageal reflux disease) (Chronic 03/11/15) Chronic fatigue (Chronic 07/29/15) Arthritis (Chronic 01/26/16) Anxiety and depression (Chronic) Sleep apnea (Chronic) uses CPAP device Medical History Nasal turbinate hypertrophy Deviated nasal septum Chronic rhinitis 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 states he is being followed by Dr. Robertson @ [facility] Right anterior shoulder pain (10/25/16) Elevated PSA, less than 10 ng/ml (08/13/17) PSA 7.6: negative prostrate biopsy 10/14 at [facility] Degeneration of cervical intervertebral disc C5/6 foraminal narrowing Surgical History S/P placement of nerve stimulator Bladder stimulator in situ History of cardiac cath S/P sinus surgery (~2017) Colonoscopy - MAC (04/07/13) 04/2022 DR. Scar ALLISON; 2 TUBULAR ADENOMAS Arthroplasty of knee (~2007) RIGHT, DR. ESCAMILLA 2013 2007 right knee arthroscopy - partial meniscectomy. Status post total knee replacement using cement (09/01/13) Right Family History Mother Cancer Father Stroke Alcohol abuse Sister Dementia Sister , age 60 Cancer Brother Alcohol abuse Substance abuse Brother No problems noted. Brother Heart disease Maternal Grandfather Stroke Paternal Grandfather Stroke Son Depression Son No problems noted. Maternal Grandmother No problems noted. Paternal Grandmother No problems noted. Social History (Updated 07/17/25 @ 15:45 by Declan Nicole) Smoking/Tobacco Use Status: Never Second Hand Exposure: Yes Smoking risk assessment performed?: Yes Alcohol Intake: never Details: one drink a year. Drug use: Never Substance use type: does not use Adopted: No Caregiver/Support person: No Foster care: No Household members: spouse and children Housing: house Number of Children: 2 number of grandchildren: 1 Communication Needs: Corrective Lenses Education Level: high school Do you need help understanding health information?: Often current occupation: Retired Pets and animals: Yes Pets and animals: cat(s) and dog(s) Sexually active: No Do you think of yourself as: straight/heterosexual Current gender identity: male What is your relationship status?: How often do you talk on the phone with friends or family?: once per week How often do you get together with friends or relatives?: three or more times per week How often do you attend jewish or yarsanism services?: 4 or more times per year Do you belong to any clubs or organized social groups?: no Panel score (0-1 are the most socially isolated patients): 3 What type of physical activity do you participate in: none Duration: 45-60 minutes/day Frequency: does not exercise Seema/Gnosticism: Lutheran Special seema needs: No Agree to transfusion: Yes Seatbelt use: always Drive intox or ride w/intox wheelchair van driver: No Working smoke detector in home: Yes Carbon monox detector in home: Yes Firearms in home: No Do you feel safe at home: Yes Do you feel safe in your relationship?: Yes Victim of physical abuse: No Victim of emotional abuse: No Victim of sexual abuse: No Would you like helpful sources: No Additional Social history: Lives with and son [address] in [facility]. 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 Allergies and Home Medications Allergies Allergy/AdvReac Type Severity Reaction Status Date / Time Penicillins Allergy Unknown Unknown Verified 07/17/25 12:21 metoprolol AdvReac fatigue Verified 07/17/25 12:21 Home Medications ?Medication ?Instructions ?Recorded ?Confirmed ?Type mirabegron 50 mg tablet,extended 50 mg PO DAILY #90 tab-caps 09/14/17 07/17/25 Rx release 24 hr (Myrbetriq) calcium carbonate 2 mg PO PRN PRN 02/19/21 07/17/25 History artificial tears ointment 1 applic ophthalmic (eye) HS 07/19/21 07/17/25 History latanoprost 0.005 % eye drops 1 drp ophthalmic (eye) DAILY 07/19/21 07/17/25 History propylene glycol 0.6 % eye drops 1 drp ophthalmic (eye) TID PRN 07/19/21 07/17/25 History (Systane Complete) nitroglycerin 0.4 mg sublingual 0.4 mg sublingual Q5M PRN chest 08/28/23 07/17/25 Rx tablet pain #30 tabs magnesium oxide 500 mg capsule 500 mg PO DAILY #90 caps 08/04/24 07/17/25 Rx riboflavin (vitamin B2) 100 mg 100 mg PO BID #180 tabs 08/04/24 07/17/25 Rx tablet atorvastatin 40 mg tablet 40 mg PO DAILY #90 tabs 04/08/25 07/17/25 Rx bisoprolol fumarate 5 mg tablet 5 mg PO DAILY #90 tabs 04/08/25 07/17/25 Rx cholecalciferol (vitamin D3) 50 100 mcg (2 x 50 mcg (2,000 unit)) 04/08/25 07/17/25 Rx mcg (2,000 unit) capsule PO DAILY #180 caps aspirin 81 mg tablet 81 mg PO DAILY #90 tabs 04/09/25 07/17/25 Rx gabapentin 600 mg tablet 300 mg PO BID 04/28/25 07/17/25 History escitalopram oxalate 10 mg tablet 10 mg PO DAILY 06/23/25 07/17/25 History pantoprazole 40 mg tablet,delayed 40 mg PO DAILY #90 tab-caps 07/06/25 07/17/25 Rx release tolterodine 4 mg capsule,extended 4 mg PO DAILY #90 caps 07/06/25 07/17/25 Rx release 24 hr (Detrol [place]) Exam Narrative Exam Narrative: GEN: Alert and oriented x 4, pleasant and cooperative, gives linear history. No acute distress at rest. HEENT: Head atraumatic. Conjunctiva clear, no icterus. PEERL, EOMI. no rhinorrhea. MMM, OP benign. Neck is supple with no masses or lymphadenopathy, trachea midline, no JVP elevated notable. LUNGS: CTAB with normal effort CV: RRR with no murmurs, gallops, or rubs. ABD: active bowel sounds, soft, nontender and nondistended. No masses. EXT: no cyanosis, clubbing. Trace ankle edema bilaterally, legs not tender MSK: No joint redness or swelling NEURO: CN 2-12 grossly intact. Normal movement of 4 extremities. Normal speech and coordination. No tremor SKIN: No rashes or open wounds. PSYCH: normal mood and affect, normal thought process Results Imaging Chest x-ray: report reviewed (No acute pulmonary findings.) and image reviewed Labs 07/17/25 09:35 07/17/25 09:35 Labs: Laboratory Results - last 24 hr 07/17/25 07/17/25 07/17/25 09:35 10:45 12:30 WBC 5.70 RBC 4.44 Hgb 12.7 L Hct 39.0 L MCV 88 MCH 28.6 MCHC 32.6 RDW 13.2 Plt Count 139 MPV 11.0 Immature Gran % 0.7 Neutrophils % 67.4 Lymphocytes % 17.2 Monocytes % 9.6 Eosinophils % 4.2 Basophils % 0.9 Nucleated RBC % 0.0 Absolute Neutrophils 3.84 Absolute Lymphocytes 0.98 L Absolute Monocytes 0.55 Absolute Eosinophils 0.24 Absolute Basophils 0.05 APTT 27.1 D-Dimer 562 H Sodium 142 Potassium 4.0 Chloride 106 Carbon Dioxide 26.2 Anion Gap 9.8 BUN 16 Creatinine 0.82 Est GFR (CKD-EPI 2020) 92.10 Glucose 130 H Calcium 8.6 Total Bilirubin 0.6 AST 18 ALT 18 Alkaline Phosphatase 96 Troponin I < 3 4 4 NT-Pro-B Natriuret Pep 112 Total Protein 6.5 Albumin 3.9 Last Vital Signs Temp 36.5 C 07/17/25 13:13 Pulse 59 L 07/17/25 13:40 Resp 14 07/17/25 13:40 BP 125/65 07/17/25 13:13 Pulse Ox 95 07/17/25 13:40 VTE Prohylaxis Risk Level: Moderate/High Risk Contraindications: None Prophylaxis: Patient anticoagulated (on heparin drip) Time Spent Time spent with Patient: >75 minutes Time was spent: preparing to see the patient(eg.review tests), obtaining and/or reviewing separately otained hiistory, ordering medications,tests, procedures, referring, communicating with other health medicare compliance auditor, indepentently interpreting results, counseling the patient and care coordination
--- NOTE | 2025-07-17 16:38 | W.NUTRFU ---
Nutrition Note NOTE: Newly diagnosed diabetes. Family history of diabetes (mother). is managing type 2 diabetes. Not on any insulin yet, may end up on a weekly shot if A1c not reduced within 3 months. No orals at all. Weakness is candy, reports being active. 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 No food allergies personally or in the family. Not picky eaters likes vegetables. Eating pattern: Eats once around 9:00, eats around 12:00 (sometimes), and has dinner around 6:00. He reports he has most issues at/after dinner, snacking watching TV in the evening. Reports that lately they have switched to dry cereal. Emphasized that weight is more tied to diet than exercise or physical activity. Reports drinking more water than he used to, drinks diet soda currently. Carb counting, healthy substitutions. Aim for 10 servings/day evenly spread out. Prioritize quality.
--- NOTE | 2025-07-17 19:11 | RESPIRATORY ---
Pt's own Noni Respironics DreamStation Auto-CPAP Min 14 / Max 20 No O2 bleed in. Large nasal mask. Uses H2O at night. DME: [employer].
[2025-07-17] MEDS: Acetaminophen 325 MG TAB 650 MG PO (20:37)
[2025-07-17] MEDS: Normal Saline Flush 10 ML SYR IVP ×2 (20:37)
[2025-07-17] MEDS: Gabapentin 300 MG CAP PO (20:38)
[2025-07-17 20:42] LABS: PTT Activated 47.9 sec (20.6-30.2)
[2025-07-18] VITALS (19 sets, daily range): BP systolic 102–130; BP diastolic 54–103; PULSE 60–82; RESP 11–26; TEMP 36.4–36.5; O2SAT 87–99
[2025-07-18 03:24] LABS: HCT 37.4 % (40.0-50.0); HGB 12.4 g/dL (13.5-17.5); MCH 28.8 pg (27.0-33.0); MCHC 33.2 % (32.0-36.0); MCV 87 fL (80-95); MPV 11.4 fL (8.0-11.0); Platelet Count 134 10^3/uL (130-400); RBC 4.30 10^6/uL (4.36-5.78); RDW 13.6 % (11.8-14.1); RDW-SD 42.8 fL; WBC 6.88 10^3/uL (4.4-10.8)
[2025-07-18 03:25] LABS: PTT Activated 79.7 sec (20.6-30.2)
[2025-07-18] MEDS: Heparin in 0.45% NaCl 25,000 UNIT/250 ML BAG 12 UNIT IVINF (03:27)
[2025-07-18 03:31] LABS: Anion Gap 8.8 mmol/L (3-11); BUN 17 mg/dL (9-23); CO2 26.2 mmol/L (20.0-31.0); Calcium 8.6 mg/dL (8.3-10.6); Chloride 107 mmol/L (98-107); Cholesterol 113 mg/dL (<200); Glucose 102 mg/dL (74-106); HDL Cholesterol 36 mg/dL (>or=40); Potassium 3.9 mmol/L (3.5-5.1); Sodium 142 mmol/L (136-145)
[2025-07-18 03:36] LABS: Hemoglobin A1C 5.5 % (<5.7)
--- NOTE | 2025-07-18 07:30 | RT.EKG_ITS ---
APPROVED REPORT Exam: Resting ECG Reason for Exam: recheck, NSTEMI Patient Location: I HR:63 bpm ECG Measurements Heart Rate 63 AXIS KS 141 P 69 QRSd 96 QRS 67 QT 423 T -15 QTc 434 Conclusion Pacemaker spikes or artifacts...timing non-diagnostic Sinus rhythm...normal P axis, V-rate 50- 99 Borderline low voltage, extremity leads...all extremity leads <0.6mV Artifact in lead(s) II,III,aVR,aVL,aVF,V6
[2025-07-18] MEDS: Tolterodine 2 MG CAPCR 4 MG PO (09:08)
[2025-07-18] MEDS: Pantoprazole 40 MG TABCR PO (09:08)
[2025-07-18] MEDS: Bisoprolol 5 MG TAB PO (09:09)
[2025-07-18] MEDS: Mirabegron 50 MG TABCR PO (09:09)
[2025-07-18] MEDS: Magnesium Oxide 400 MG TAB PO (09:09)
[2025-07-18] MEDS: Atorvastatin 40 MG TAB PO (09:09)
[2025-07-18] MEDS: Aspirin E.C. 81 MG TABEC PO (09:09)
[2025-07-18] MEDS: Cholecalciferol (Vitamin D3) 1,000 UNIT TAB 4000 UNITS PO (09:09)
[2025-07-18] MEDS: Escitalopram 10 MG TAB PO (09:09)
[2025-07-18] MEDS: Normal Saline Flush 10 ML SYR IVP (09:09)
[2025-07-18] MEDS: Gabapentin 300 MG CAP PO (09:09)
[2025-07-18 09:23] LABS: PTT Activated 70.6 sec (20.6-30.2)
[2025-07-18] MEDS: Polyethylene Glycol 3350 17 GM PACKET PO (09:24)
--- NOTE | 2025-07-18 12:32 | DSE_ITS ---
Date of service: 07/18/25 Time of Service: 12:32 DS: Diagnosis Discharge Diagnosis (1) Unstable angina: Status: Acute (2) Coronary artery disease: Status: Chronic (3) Increased BMI (body mass index): Status: Chronic (4) Anxiety and depression: Status: Chronic (5) GERD (gastroesophageal reflux disease): Status: Chronic (6) Urgency incontinence: Status: Chronic (7) Sleep apnea: Status: Chronic Discharge Plan Disposition Patient Disposition: Transfer-Acute Inpatient Care Specific Acute In Facility: [facility] Condition: Fair Discharge Details Reason For Visit: Unstable Angina Admit Date/Time: 07/17/25 12:02 Admit Provider: Declan Nicole Attending Provider: Declan Nicole Primary Care Provider: [facility] Course Hospital Course: 74 yo M with h/o CAD s/p posterolateral STEMI that was managed medically in 2018, ELIAS, urinary retention/incontinence, and BMI 34 who presented to the emergency room with 2 days of increasing exertional chest pain associated with SOB. His pain was improved with SL NTG and he was started on a nitroglycerin drip. His EKG was not changed from previous and troponins were negative, but with his symptoms he was admitted for unstable angina. Heparin drip was started. Case was reviewed with [facility] cardiology Dr. Adriel Whitehead who accepted the patient for transfer cardiac catheterization pending bed availability. Lipids were repeated and showed Tc 113, LDL 55.8, HDL 36. Atorvastatin was continued. Hgb A1c was normal at 5.5% He continued free from chest pain. Repeat EKG 07/18 did not show changes. Home Meds and New Rx's Prescriptions: No Action Systane Complete 0.6 % drops 1 drp ophthalmic (eye) TID PRN artificial tears ointment Ointment 1 applic ophthalmic (eye) HS latanoprost 0.005 % drops 1 drp ophthalmic (eye) DAILY gabapentin 600 mg tablet 300 mg PO BID Patient Comments: pt states he takes 300mg BID pantoprazole 40 mg tablet,delayed release (DR/EC) 40 mg PO DAILY Qty: 90 12RF tolterodine [Detrol LA] 4 mg capsule,extended release 24hr 4 mg PO DAILY Qty: 90 12RF escitalopram oxalate 10 mg tablet 10 mg PO DAILY mirabegron [Myrbetriq] 50 MG tablet extended release 24 hr 50 mg PO DAILY Qty: 90 4RF nitroglycerin 0.4 mg tablet, sublingual 0.4 mg SL Q5M PRN (Reason: chest pain) Qty: 30 2RF riboflavin (vitamin B2) 100 mg tablet 100 mg PO BID Qty: 180 12RF magnesium oxide 500 mg capsule 500 mg PO DAILY Qty: 90 12RF atorvastatin 40 mg tablet 40 mg PO DAILY Qty: 90 3RF bisoprolol fumarate 5 mg tablet 5 mg PO DAILY Qty: 90 3RF cholecalciferol (vitamin D3) 50 mcg (2,000 unit) capsule 100 mcg PO DAILY Qty: 180 3RF aspirin 81 mg tablet 81 mg PO DAILY Qty: 90 1RF calcium carbonate 500 mg calcium (1,250 mg) Tablet,Chewable 2 mg PO PRN PRN Discharge Instructions Activity:: Activity as Tolerated Equipment/Supplies:: No Equipment Needed Diet:: NPO at midnight Discharge Orders Discharge Orders: Discharge Order (Routine); Ordered 07/18/25 Ordered By: Declan Nicole DS: Summary Time Spent with Patient providing and/or coordinating discharge services: Greater than 30 minutes Status at Discharge Functional status at discharge: uses cane/walker Overall status at discharge: patient is not back to baseline Mental Status: mental status grossly normal Speech and Movement: speech and movement normal Mood: congruent mood Affect: normal affect Quality:SDOH Health Related Social Needs: Health related social needs house/econ circumstance Health related social needs details money is tight, b ut we don't have any problems currently Health related social needs details: money is tight, but we don't have any problems currently Exam Narrative Exam Narrative: GEN: Alert and oriented. No acute distress at rest. HEENT: Head atraumatic x <1cm ulceration apical scalp (chronic), MMM, no JVP elevated notable. LUNGS: CTAB with normal effort CV: RRR with no murmurs, gallops, or rubs. ABD: active bowel sounds, soft, nontender and nondistended. No masses. EXT: no cyanosis, clubbing. Trace ankle edema bilaterally, legs not tender Psych Mental Status: mental status grossly normal Speech and Movement: speech and movement normal Mood: congruent mood Affect: normal affect DS: Data Vitals/I&O Vitals and I&O: Vital Signs Temperature 36.5 C 07/18/25 11:16 Temperature Source Temporal Artery Scan 07/18/25 11:16 Pulse 62 07/18/25 12:01 Pulse 65 07/18/25 12:01 Respiratory Rate 13 07/18/25 12:01 Respiratory Effort Normal, Non-Labored 07/17/25 13:05 Respiratory Depth Normal 07/17/25 13:05 Respiratory Pattern Normal 07/17/25 13:05 Blood Pressure 116/67 07/18/25 12:01 Blood Pressure Mean 82 07/18/25 12:01 Blood Pressure Position Supine 07/17/25 13:05 Pulse Oximetry 96 07/18/25 12:01 Oxygen Delivery Method Cpap 07/18/25 03:06 Oxygen Flow Rate 0 07/17/25 13:05 Fraction of Inspired Oxygen (FIO2) 21 07/17/25 20:00 Pain Level 0 07/18/25 03:06 Intake & Output 07/17/25 07/18/25 07/18/25 23:59 11:59 23:59 Intake Total 886.05 / 896.05 1100.4 / 1100.4 Output Total 150 / 150 Balance 861.05 / 871.05 950.4 / 950.4 Weight 107.3 kg 108 kg Intake: IV 76.05 / 86.05 150.4 / 150.4 Oral 810 / 810 950 / 950 Output: Urine 150 / 150 Other: Urine Color Yellow Yellow Urine Appearance Clear Clear Urine Odor Normal Comment Patient was incontinent of a large amount of urine. Then patient was straight cathed for 25 cc of urine at this time. Pt incontinent of large amount of yellow urine in brief and bed Stool Size Large Stool Characteristics Hard Brown Data Completed and Pending Pending Labs at Discharge: 07/17/25 07/17/25 07/17/25 09:35 10:45 12:30 WBC 5.70 RBC 4.44 Hgb 12.7 L Hct 39.0 L MCV 88 MCH 28.6 MCHC 32.6 RDW 13.2 Plt Count 139 MPV 11.0 Immature Gran % 0.7 Neutrophils % 67.4 Lymphocytes % 17.2 Monocytes % 9.6 Eosinophils % 4.2 Basophils % 0.9 Nucleated RBC % 0.0 Absolute Neutrophils 3.84 Absolute Lymphocytes 0.98 L Absolute Monocytes 0.55 Absolute Eosinophils 0.24 Absolute Basophils 0.05 APTT 27.1 D-Dimer 562 H Sodium 142 Potassium 4.0 Chloride 106 Carbon Dioxide 26.2 Anion Gap 9.8 BUN 16 Creatinine 0.82 Est GFR (CKD-EPI 2020) 92.10 Glucose 130 H Hemoglobin A1c Calcium 8.6 Total Bilirubin 0.6 AST 18 ALT 18 Alkaline Phosphatase 96 Troponin I < 3 4 4 NT-Pro-B Natriuret Pep 112 Total Protein 6.5 Albumin 3.9 Triglycerides Total Cholesterol LDL Cholesterol, Calc HDL Cholesterol 07/17/25 07/18/25 07/18/25 20:20 03:00 08:55 WBC 6.88 RBC 4.30 L Hgb 12.4 L Hct 37.4 L MCV 87 MCH 28.8 MCHC 33.2 RDW 13.6 Plt Count 134 MPV 11.4 H Immature Gran % Neutrophils % Lymphocytes % Monocytes % Eosinophils % Basophils % Nucleated RBC % Absolute Neutrophils Absolute Lymphocytes Absolute Monocytes Absolute Eosinophils Absolute Basophils APTT 47.9 H 79.7 H 70.6 H D-Dimer Sodium 142 Potassium 3.9 Chloride 107 Carbon Dioxide 26.2 Anion Gap 8.8 BUN 17 Creatinine 0.88 Est GFR (CKD-EPI 2020) 84.89 Glucose 102 Hemoglobin A1c 5.5 Calcium 8.6 Total Bilirubin AST ALT Alkaline Phosphatase Troponin I NT-Pro-B Natriuret Pep Total Protein Albumin Triglycerides 105 Total Cholesterol 113 LDL Cholesterol, Calc 55.8 HDL Cholesterol 36 L PFSH All Active Problems (Updated 07/17/25 @ 15:50 by Declan Nicole) Unstable angina (Acute) Cerumen impaction (Acute) Bilateral hearing loss due to cerumen impaction (Acute) Tardive dyskinesia (Acute) mouth movement History of total left knee replacement (Acute 09/30/24) Painful total knee replacement, right (Acute) Femoroacetabular impingement of both hips (Acute) Pain of right heel (Acute) Urinary incontinence (Acute) Gets botox injection in the bladder, [place] [facility] Right-sided low back pain without sciatica (Acute) Tubular adenoma of colon (Chronic) 06/28/07 tubular adenoma 04/07/13 TUBULAR ADENOMA Coronary artery disease (Chronic) Cervicalgia (Acute) Dry eye syndrome of both eyes (Acute) Vitamin D deficiency (Acute) Urgency incontinence (Chronic 01/12/16) Interstim implant ~2020 PVP on 07/09/18, uncomplicated, at [facility] (Dr. Snow) Plavix restarted. Tremor (Chronic) Rosacea (Chronic) Lung mass (Chronic 07/26/15) work up in progress 08/01/19 per pt. states that he has no issues with his lungs Increased BMI (body mass index) (Chronic 08/13/17) GERD (gastroesophageal reflux disease) (Chronic 03/11/15) Chronic fatigue (Chronic 07/29/15) Arthritis (Chronic 01/26/16) Anxiety and depression (Chronic) Sleep apnea (Chronic) uses CPAP device Medical History Nasal turbinate hypertrophy Deviated nasal septum Chronic rhinitis 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 states he is being followed by Dr. Robertson @ [facility] Right anterior shoulder pain (10/25/16) Elevated PSA, less than 10 ng/ml (08/13/17) PSA 7.6: negative prostrate biopsy 10/14 at [facility] Degeneration of cervical intervertebral disc C5/6 foraminal narrowing Surgical History S/P placement of nerve stimulator Bladder stimulator in situ History of cardiac cath S/P sinus surgery (~2017) Colonoscopy - MAC (04/07/13) 04/2022 DR. Scar ALLISON; 2 TUBULAR ADENOMAS Arthroplasty of knee (~2007) RIGHT, DR. ESCAMILLA 2013 2007 right knee arthroscopy - partial meniscectomy. Status post total knee replacement using cement (09/01/13) Right Family History Mother Cancer Father Stroke Alcohol abuse Sister Dementia Sister , age 60 Cancer Brother Alcohol abuse Substance abuse Brother No problems noted. Brother Heart disease Maternal Grandfather Stroke Paternal Grandfather Stroke Son Depression Son No problems noted. Maternal Grandmother No problems noted. Paternal Grandmother No problems noted. Social History (Updated 07/17/25 @ 15:45 by Declan Nicole) Smoking/Tobacco Use Status: Never Second Hand Exposure: Yes Smoking risk assessment performed?: Yes Alcohol Intake: never Details: one drink a year. Drug use: Never Substance use type: does not use Adopted: No Caregiver/Support person: No Foster care: No Household members: spouse and children Housing: house Number of Children: 2 number of grandchildren: 1 Communication Needs: Corrective Lenses Education Level: high school Do you need help understanding health information?: Often current occupation: Retired Pets and animals: Yes Pets and animals: cat(s) and dog(s) Sexually active: No Do you think of yourself as: straight/heterosexual Current gender identity: male What is your relationship status?: How often do you talk on the phone with friends or family?: once per week How often do you get together with friends or relatives?: three or more times per week How often do you attend adventist or mosque services?: 4 or more times per year Do you belong to any clubs or organized social groups?: no Panel score (0-1 are the most socially isolated patients): 3 What type of physical activity do you participate in: none Duration: 45-60 minutes/day Frequency: does not exercise Seema/Islam: Adventist Special seema needs: No Agree to transfusion: Yes Seatbelt use: always Drive intox or ride w/intox salesperson driver: No Working smoke detector in home: Yes Carbon monox detector in home: Yes Firearms in home: No Do you feel safe at home: Yes Do you feel safe in your relationship?: Yes Victim of physical abuse: No Victim of emotional abuse: No Victim of sexual abuse: No Would you like helpful sources: No Additional Social history: Lives with and son [address] in [facility]. Re tired from [facility]. [employer] Time Spent with Patient Time Spent with Patient: <45 minutes Time was spent: preparing to see the patient(eg.review tests), obtaining and/or reviewing separately otained hiistory, ordering medications,tests, procedures, referring, communicating with other health child care centre director, indepentently interpreting results, counseling the patient and care coordination
== END 2025-07-18 13:15 | disposition short-term general hospital (02) | DRG 303 ==
LOC: ER 12:17 → ICU 15:06
PROVIDERS: Hospitalist; Admitting Provider Family Medicine; Emergency Provider Student in an Organized Health Care Education/Training Program; PCP Nurse Practitioner Family; Responsible Provider Family Medicine; Visit Provider Family Medicine
DX: I25.110 Atherosclerotic heart disease of native coronary artery with unstable angina pectoris (principal); N39.41 Urge incontinence; G47.33 Obstructive sleep apnea (adult) (pediatric); K21.9 Gastro-esophageal reflux disease without esophagitis; F41.8 Other specified anxiety disorders; I25.2 Old myocardial infarction; R33.9 Retention of urine, unspecified; Z96.653 Presence of artificial knee joint, bilateral; M54.50 Low back pain, unspecified; E55.9 Vitamin D deficiency, unspecified; H04.123 Dry eye syndrome of bilateral lacrimal glands; R25.1 Tremor, unspecified; L71.9 Rosacea, unspecified; R53.82 Chronic fatigue, unspecified; Z96.82 Presence of neurostimulator
CPT/HCPCS: 00123; 36415; 80048; 80053; 80061; 85027; 93005; 96365; 99291; 71046; 83036; 83880; 84484; 85025; 85379; 85730; 93010; 99223; 99238; J1644; J2305